=== PATIENT | female | born 1945 | race Caucasian/White ===

== ENCOUNTER 2017-11-07 14:16 | Inpatient (IN) | payer MEDICARE, MEDICAID, SELFPAY ==
[2017-11-07] VITALS (7 sets, daily range): BP systolic 132–189; BP diastolic 66–87; PULSE 74–88; RESP 16–21; TEMP 36.7–37; O2SAT 95–100; BMI 26.6; BMI 25.9
--- NOTE | 2017-11-07 14:35 | CT_ITS ---
STUDY: CT BRAIN WITHOUT CONTRAST REASON FOR EXAM: Female, 72 years old. Confusion. RADIATION DOSAGE (If Supplied By Facility): CTDIvol = ( 60.81 ) mGy, DLP = ( 1181.11 ) mGycm TECHNIQUE: Transaxial CT imaging of the brain was performed without administration of intravenous contrast material. Individualized dose optimization techniques were used for this CT. COMPARISON: None. FINDINGS: Normal soft tissue structures. Normal calvarium. There is mild cerebral atrophy with widening of the extra-axial spaces and ventricular dilatation. There are areas of decreased attenuation within the white matter tracts of the supratentorial brain, consistent with microvascular disease changes. Normal basal ganglia and thalami. Normal brainstem. Normal cerebellum. There is no intracranial hemorrhage. There are no findings of an acute ischemic infarction. Atherosclerotic calcification of the cavernous portions of the internal carotid arteries bilaterally Normal visualized paranasal sinuses. CT/Brain/Head without Contrast IMPRESSION: Chronic involutional changes of the brain. Electronically Signed: Oj Durham MD at 15:31 EDT Tel [phone], Service support ,
--- NOTE | 2017-11-07 14:35 | CT_ITS ---
STUDY: CT ABDOMEN AND PELVIS WITHOUT CONTRAST REASON FOR EXAM: Female, 72 years old. Abdominal pain. RADIATION DOSAGE (If Supplied By Facility): CTDIvol = ( 14.56 ) mGy, DLP = ( 801.33 ) mGycm TECHNIQUE: Transaxial images were obtained from the dome of the diaphragm to the symphysis pubis without oral contrast, and without intravenous contrast. Sagittal and coronal images were reconstructed. Individualized dose optimization techniques were used for this CT. COMPARISON: Comparison is made with prior study dated August 10, 2014. FINDINGS: Stable increased markings at the lung bases suggestive of scarring. This is worse on the right side. The visualized portions of the heart are within normal limits. The previously seen hypodense soft tissue mass in the posterior aspect of the right lobe of the liver has decreased in size. It presently measures 5.9 cm x 4.6 cm. There are surgical clips in the gallbladder fossa consistent with a prior cholecystectomy. Normal spleen. Normal pancreas. Normal bilateral adrenal glands. Punctate calcification in the lower pole calyx of the right kidney. There is a 3.6 cm x 2.9 cm rounded soft tissue mass in the upper pole of the left kidney. Correlation with ultrasound is recommended. There is also evidence of a left parapelvic renal cysts. Normal visualized stomach. Normal small intestine. Normal colon. The appendix is visualized and appears normal. There is diffuse atherosclerotic calcification of the abdominal aorta, without a demonstrated aneurysm. Normal inferior vena cava. Normal retroperitoneum. Normal urinary bladder. There is absence of the uterus consistent with a prior hysterectomy. Normal abdominal wall. There are diffuse degenerative changes of the visualized lumbar spine. Inhomogeneous appearance of the lumbar vertebrae. Metastatic disease should be ruled out. CT/Abdomen/Pelvis without Cont IMPRESSION: Decrease in size of the right hepatic mass. Findings suggestive of a mass in the upper pole of the left kidney. Correlation with ultrasound is recommended. Findings areas of metastatic disease involving the lumbar spine. Electronically Signed: Oj Durham MD at 15:39 EDT Tel [phone], Service support ,
--- NOTE | 2017-11-07 14:36 | EKG12_ITS ---
Test Reason : MENTAL CHANGE Blood Pressure : / mmHG Vent. Rate : 074 BPM Atrial Rate : 074 BPM P-R Int : 150 ms QRS Dur : 102 ms QT Int : 440 ms P-R-T Axes : 052 -06 007 degrees QTc Int : 488 ms Normal sinus rhythm Normal ECG Confirmed by IZZY COHEN, HILDA ([id number]), graphic editor HOUSTON MENDEZ ([id number]) on 11/10/2017 2:01:41 PM Referred By: JUSTYNA Confirmed By:HILDA MAGANA MD
[2017-11-07] MEDS: 0.9% Normal Saline 1,000 ML 1000 ML IV (14:59)
[2017-11-07 15:16] LABS: ALB/GLOB Ratio 1.1 RATIO (0.9-2.4); AST(SGOT) 74 U/L (15-37); Alanine Aminotransfer ALT/SGPT 94 U/L (13-56); Alkaline Phosphatase 187 U/L (45-117); BUN 21 mg/dL (7-18); BUN/Creat Ratio 16.9 RATIO (10-20); Calcium,Total 9.2 mg/dL (8.5-10.1); Chloride 107 mmol/L (98-107); Creatinine, Serum 1.24 mg/dL (0.55-1.02); EST Glomerular Filtration Rate 45 mL/min (>60); Est Glom Filt Rate - Afr Amer 55 mL/min (>60); Estimated Creatinine Clearance 38.96 ml/min; Globulin 3.7 g/dL (2.2-4.2); Glucose 113 mg/dL (74-106); Lipase 49 U/L (73-393); Potassium 3.8 mmol/L (3.5-5.1); Protein, Total 7.7 g/dL (6.4-8.2); Sodium Level 140 mmol/L (136-145)
[2017-11-07 15:17] LABS: Anion Gap 10 (5-15)
[2017-11-07 15:42] LABS: Mucous, Urine 0 SEEN /hpf (<or=2+)
[2017-11-07 15:45] LABS: Color, Urine Yellow (Yellow); Glucose, Dipstick Normal (Normal); Ketone-Dipstick 15 mg/dl (Negative); Leukocyte Esterase-Dipstick 500 /ul (Negative); Nitrite-Dipstick Positive (Negative); Occult Blood-Urine 25 /ul (Negative); Protein-Dipstick 15 mg/dl (Negative); Urine Bilirubin Dipstick Negative (Negative); Urine Clarity Sl. Cloudy (Clear); Urine Urobilinogen Normal (Normal)
--- NOTE | 2017-11-07 15:48 | CASEMGMT ---
Social Work-Emergency Department Received call from Tesha at [facility] ([facility]), . Returned Tesha's call. Tesha inquired whether this patient still in the ED, as APS received concerned call from someone in the community and APS was informed patient was brought to the [facility] ED. Brief chart review done. Reported to APS reason for ED visit, which appears to be mental health related as this time, though at this juncture uncertain if this is mental health or medical issues causing acute mental health symptoms. APS reports the patient lives alone, has reportedly been able to get around on own, and has no family contact that [facility] or [facility] is aware of. There is a woman named Janey at [facility] that patient has listed as emergency contact for landlord at [facility]. APS would like to be notified if patient is admitted or discharged from the hospital, so that APS knows what type of follow up with patient will be needed. Social work agreed to monitor and alert APS when disposition is known. Tesha reports it is okay to even call back tomorrow if needed. Tesha does report that patient is a Waiver client through [facility], Jael Price is the worker. Called Anastasiya Edouard RN CM for the ED to update. Anastasiya will update ED staff. For continuity of care of this patient, in trying to determine what services support are available to patient, this insurance underwriter sales called [facility] at . Left message for Jael to call this insurance underwriter sales back to update hospital as to what waiver services patient is receiving, as well as to inquire whether Jael is aware of any contact information for patient. Plan: Monitor for disposition. -NERY Spicer, REPORT CLERK
[2017-11-07 15:57] LABS: White Blood Cells 50-100 SEEN /hpf (0-5)
[2017-11-07 15:58] LABS: Red Blood Cells-Urine 0 SEEN /hpf (0-5); Renal Epithelial Cells 0-5 SEEN /hpf (0-5); Squamous Epithelial Cells - UA 0-5 SEEN /hpf (5-10)
[2017-11-07 15:59] LABS: Bacteria 1+ /hpf (None Seen)
[2017-11-07 16:04] LABS: Absolute Lymphocyte Count 1.44 X10^3/ul (0.83-4.51); Absolute Neutrophil Count 5.3 X10^3/uL (2.0-7.7); Basophil# 0.02 X10^3/uL; Basophil% 0.3 % (0-1); Eosinophil# 0.09 X10^3/uL; Eosinophils% 1.2 % (0-5); Lymphocyte # 1.44 X10^3/ul (4.0); Lymphocyte % 19.5 % (19-41); Mean Corp Hgb Conc 33.3 g/gl (32-36); Mean Corpuscular Hgb 30.9 pg (27.0-32.0); Mean Corpuscular Volume 92.6 fL (81-99); Mean Platelet Vol. 11.7 fl (6.2-12.0); Monocyte# 0.54 X10^3/uL; Monocyte% 7.3 % (0-10); Neutrophil # 5.28 X10^3/uL (2.7-7.7); Neutrophil % 71.3 % (47-70); Platelet Count 244 K/mm3 (150-450); RBC Distribution Width CV 14.7 % (11.6-14.6); RBC Distribution Width SD 48.1 fl (35.1-43.9); Red Blood Count 4.21 M/mm3 (4.2-5.4); White Blood Count 7.4 K/mm3 (4.4-11.0)
[2017-11-07 16:06] LABS: POSITIVE DIFFERENTIAL NO
[2017-11-07 16:07] LABS: POSITIVE COUNT NO; POSITIVE MORPHOLOGY NO
[2017-11-07 16:14] LABS: Thyroid Stim Hormone (TSH) 1.22 uIU/mL (0.358-3.74)
[2017-11-07 16:17] LABS: Amphetamine Urine VISTA NEGATIVE (<1000 ng/mL); Barbiturate Urine VISTA NEGATIVE (< 200 ng/mL); Benzodiazepine Urine VISTA POSITIVE (< 200 ng/mL); Cocaine Urine VISTA NEGATIVE (< 300 ng/mL); Ecstacy Urine VISTA NEGATIVE (< 500 ng/mL); Methadone Urine VISTA NEGATIVE (< 300 ng/mL); PCP Urine VISTA NEGATIVE (< 25 ng/mL); THC Urine VISTA NEGATIVE (< 50 ng/mL); Vista UDS pH Range 7
[2017-11-07 16:43] LABS: Alcohol, Blood (Medical)-Serum < 3.0 mg/dL
[2017-11-07] MEDS: Ceftriaxone 1 GM/50 mL Premix x1 IV (16:45)
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
[2017-11-07 17:33] LABS: Lactic Acid 2.3 mmol/L (0.4-2.0)
[2017-11-07 20:32] LABS: Reflex Lactate? Y
--- NOTE | 2017-11-07 20:57 | PCM.HP.STD ---
Problem List (1) Knee contusion Status: Acute (2) Thyroid cancer Status: Chronic (3) Anxiety disorder Status: Chronic History of Present Illness Date of Admission: 11/14/17 Chief Complaint: confusion The patient is a 72 year old F seen by her home health critical care cns noted to be confused and hallucinating, the patient was recommended to go to the emergency room for further evaluation. CT scan of her brain showed chronic involutional changes but essentially none acute. Her UA showed pyuria consistent with a urinary tract infection and she was started on IV Rocephin. Patient also complained of right flank pain and underwent CT scan of the abdomen and pelvis and it showed right hepatic mass, mass in the upper pole of the left kidney as well as findings areas of metastatic disease involving the lumbar spine. we are placing her in the hospital for further management. Past Medical History Past Medical History (Chronic Problems): Chronic Problems Thyroid cancer (Chronic) Anxiety disorder (Chronic) Allergies ANTIBIOTIC Adverse Reaction (Uncoded 11/07/17 14:17) Other Home Medications: Ambulatory Orders Medication Instructions Recorded ALPRAZolam [Xanax] 0.25 mg PO TID PRN PRN 07/20/13 Amitriptyline HCl [Elavil] 50 mg PO QHS 07/20/13 Brimonidine Tartrate/Timolol 1 drop EACH EYE BID 07/20/13 [Combigan Eye Drops] Ergocalciferol [Vitamin D] 50,000 unit PO Q7D 07/20/13 Latanoprost 0.005% [Xalatan 1 drop EACH EYE QHS 07/20/13 Opthalmic] Hydrocodone Bitart/Apap 5-325 1 tablet PO Q6H PRN PRN 09/05/17 [Vicodin 5/325] Levothyroxine Sodium 88 mcg PO DAILY 09/05/17 Oxybutynin Chloride [Ditropan Xl] 5 mg PO DAILY 09/05/17 Erythromycin Ophthalmic 1 each EACH EYE DAILY 11/07/17 Smoking Status: Never smoker - *Family History Maternal History Items: No pertinent history, - Review of Systems Comment: All Systems were reviewed with pertinent positives mentioned in the HPI above. VTE Information - Inpt Only VTE Present on Admission: No VTE Mechan Device Prophylaxis: SCD's VTE Pharm Prophylaxis ordered?: No - Physical Exam General: Alert, Oriented x3 HEENT: Atraumatic Lungs: Clear to auscultation Cardiovascular: Regular rate, Normal S1, Normal S2 Abdomen: Bowel Sounds Present, Soft, Non Tender Neurological: Cranial nerves II-XII grossly intact, Motor Exam 5/5 strength throughout Vital Signs Temp Pulse Resp BP Pulse Ox 98.6 F 77 18 132/75 H 99 11/07/17 20:33 11/07/17 20:33 11/07/17 20:33 11/07/17 20:33 11/07/17 20:33 Oxygen Delivery Method Room Air Weight: 72.8 kg Body Mass Index (BMI) 25.9 Assessment/Plan 1. Acute Encephalopathy; this has improved since her arrival to the emergency room, CT scan of the brain is nonacute , I will obtain MRI of the brain. 2. Acute cystitis; we will continue with IV Rocephin and follow urine cultures. 3. right hepatic mass with metastatic disease involving the lumbar spine ; ultrasound of the right upper quadrant, consult oncology Patient said is treated for a type of cancer at the [facility] [place], we will obtain old records. 4. Mass in the upper pole of the left kidney; further imaging with ultrasound and go from there. 5. DVT prophylaxis with Lovenox.
[2017-11-07] MEDS: Amitriptyline 25 MG Tablet 50 MG PO (23:10)
[2017-11-07] MEDS: Latanoprost 0.005% 1 Bottle 1 DRP EACH EYE (23:10)
[2017-11-07] MEDS: 0.9% NaCl Peripheral Flush Adult/Peds IV (23:10)
[2017-11-07] MEDS: Timolol 0.5% 5ML OPTH.BTL 1 DRP EACH EYE (23:11)
[2017-11-07] MEDS: BRIMONIDINE 0.2% 5ML BOTTLE 1 DRP EACH EYE (23:11)
[2017-11-08] VITALS (9 sets, daily range): BP systolic 101–128; BP diastolic 54–73; PULSE 70–89; RESP 16–18; TEMP 36.3–36.9; O2SAT 95–99
[2017-11-08] MEDS: Levothyroxine 88 MCG Tablet PO (05:32)
--- NOTE | 2017-11-08 08:00 | MRI_ITS ---
STUDY: MRI BRAIN WITHOUT CONTRAST REASON FOR EXAM: Female, 72 years old. confusion, hallucinating TECHNIQUE: Standardized multiplanar fat and water weighted pulse sequences were obtained. Sag T1 FLAIR Ax DWI Ax T2 PROPELLER Ax T2 FLAIR Ax T1 FSE Apparent Diffusion Coefficient (mm2/s) Exponential Apparent Diffusion Coefficient Ax T2* GRE Cor T2 FSE COMPARISON: CT brain November 07, 2017 FINDINGS: There is mild to moderate cerebral atrophy with widening of the extra-axial spaces and ventricular dilatation. Normal white matter tracts of the supratentorial brain. Normal bilateral basal ganglia. Normal thalami. There is no extra-axial fluid accumulation. Normal flow voids within the major intracranial circulation suggesting patency by spin echo criteria. Normal sella turcica, pituitary gland, infundibular stalk, optic chiasm and hypothalamus. Normal tectal plate and pineal gland. Normal midbrain, ronal and medulla. Normal cerebellum. Normal basal cisterns. Normal bilateral temporal bones. Normal bilateral internal auditory canals. The lenses of the eyes do not appear apparent. There is fluid seen in association with the optic nerve sheaths bilaterally. Normal calvarium and skull base. Normal visualized soft tissue structures. Normal visualized upper cervical spine. MRI/Brain without Contrast IMPRESSION: Involutional changes of the brain, as described above. No acute intracranial abnormality. Electronically Signed: Stephanie Hardin MD at 11:52 EDT Tel , Service support ,
--- NOTE | 2017-11-08 09:45 | NURSING ---
Pt to MRI via MRI staff
[2017-11-08] MEDS: Timolol 0.5% 5ML OPTH.BTL 1 DRP EACH EYE ×2 (10:53→22:00)
[2017-11-08] MEDS: BRIMONIDINE 0.2% 5ML BOTTLE 1 DRP EACH EYE ×2 (10:53→21:59)
[2017-11-08] MEDS: Erythromycin Base 1 OPTH.TUBE 1 APPLIC EACH EYE (10:54)
[2017-11-08] MEDS: Enoxaparin 40 MG/0.4 ML Syringe SC (10:54)
[2017-11-08] MEDS: Oxybutynin 5 MG Tablet PO (10:54)
[2017-11-08] MEDS: Ceftriaxone 1 GM/50 ML BAG IV (10:57)
--- NOTE | 2017-11-08 10:57 | CASEMGMT ---
Social Work Note Call from Jael Price [[phone]] stating that the pt has been experiencing hallucinations for some time now. Inform that she presented with confusion and a hepatic mass. Jael anticipates that the pt will need placement and suggests guardianship as the pt has not family or friends that would be able to sign her into a facility for placement. Will discuss case with furnace process supervisor. Oncology consulted. SW to continue to follow and assist with discharge planning. Plan: DEONTE Mcgergor, PATTERN PUNCHER, WASTEWATER TREATMENT SUPERVISOR
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
--- NOTE | 2017-11-08 16:06 | CASEMGMT ---
Social Work Note Placed call to Crisis who states that Prema, one of their staff members, is in the ED and to call her. Placed call to Prema who states she is preoccupied in the ED and requests that SW contact [facility] and request to speak with Mayur Baum. Called back to [facility] and updated Mayur Baum to the pt and her situation. States that he will pass along to the staff covering this evening. Anticipate evaluation this evening or tomorrow. Will continue to follow and assist with discharge planning. Zahra Mcgregor, HAND NAILER, FIRST DYER
--- NOTE | 2017-11-08 16:15 | CHAPLAIN ---
two attempts made; first pt is sleeping and second pt has medical staff working with her
--- NOTE | 2017-11-08 16:26 | PCM.PN.HOSP ---
Patient Problems: Active and Suspected Problems Left kidney mass (Acute) Subjective: Patient was seen and examined. Admitted on 11/07/2017 with confusion. Patient is alert oriented ?2 but not to time. She does not r-PA confused. Subspecialties at her baseline. Denied any fever or chills. Had MRI of the brain which was essentially unremarkable. Oncology consulted for right hepatic and renal mass. Vitals/I&O's: Vital Signs Temp Pulse Resp BP Pulse Ox 97.3 F L 73 16 106/54 L 98 11/08/17 14:00 11/08/17 15:12 11/08/17 14:00 11/08/17 14:00 11/08/17 14:00 Oxygen Delivery Method Room Air Weight: 72.8 kg Body Mass Index (BMI) 25.9 Intake and Output for Last 24 Hours 11/06/17 11/07/17 11/08/17 23:59 23:59 23:59 Intake Total 360 / 360 785 / 785 Output Total 200 / 200 150 / 150 Balance 160 / 160 635 / 635 General: Alert, Oriented x3, Cooperative, No apparent distress HEENT: Atraumatic, PERRLA, EOMI, Normocephalic Oral: Moist Mucosa Neck: Supple Lungs: Clear to auscultation, Normal air movement Cardiovascular: Regular rate, Regular Rhythm, Normal S1, Normal S2, No murmurs Abdomen: Bowel Sounds Present, Soft, Non Tender, Non-Distended, No Hepato-splenomegaly Extremities: No edema Skin: No rashes Musculoskeletal: No Tenderness to Palpation of Joints or Extremities Lymphatic: No Cervical, Supraclavicular, or Inguinal Adenopathy Neurological: Cranial nerves II-XII grossly intact, Motor Exam 5/5 strength throughout Psych/Mental Status: Normal Affect, Appropriate Laboratory Results 11/07/17 21:20: Lactic Acid 1.0 Current Medications Hydrocodone Bitart/Acetaminophen ([place] 5mg-325mg) 1 tablet PO Q6H PRN PRN PRN Reason: PAIN Alprazolam (Xanax) 0.25 mg PO TID PRN PRN PRN Reason: ANXIETY Amitriptyline HCl (Elavil) 50 mg PO QHS [facility] Last Admin: 11/07/17 23:10 Dose: 50 mg Brimonidine Tartrate (Brimonidine 0.2% 5ml Bottle) 1 drop EACH EYE BID [facility] Last Admin: 11/08/17 10:53 Dose: 1 drop Dexamethasone Sodium Phosphate (Decadron) 4 mg IV Q12 [facility] Last Admin: 11/08/17 10:54 Dose: 4 mg Enoxaparin Sodium (Lovenox) 40 mg SC DAILY@1000 [facility] Last Admin: 11/08/17 10:54 Dose: 40 mg Ergocalciferol (Vitamin D) 50,000 unit PO Q7D [facility] Erythromycin () 1 applic EACH EYE DAILY [facility] Last Admin: 11/08/17 10:54 Dose: 1 applicatio Ceftriaxone Sodium (Rocephin) 1 gm in 50 mls @ 100 mls/hr IV Q24 [facility] Last Admin: 11/08/17 10:57 Dose: 100 mls/hr Latanoprost (Xalatan Opthalmic) 1 drop EACH EYE QHS [facility] Last Admin: 11/07/17 23:10 Dose: 1 drop Levothyroxine Sodium (Synthroid) 88 mcg PO DAILY@0600 [facility] Last Admin: 11/08/17 05:32 Dose: 88 mcg Magnesium Hydroxide (Milk Of Magnesia) 30 ml PO DAILY PRN PRN PRN Reason: Constipation Nutritional Formula (Lactose Free) (Ensure Enlive) 120 ml PO 4X/DAY [facility] Last Admin: 11/08/17 15:03 Dose: 120 ml Oxybutynin Chloride (Ditropan) 5 mg PO DAILY [facility] Last Admin: 11/08/17 10:54 Dose: 5 mg Sodium Chloride () 5 - 30 ml IV UD PRN PRN Reason: SALINE FLUSH Last Admin: 11/07/17 23:10 Dose: 10 ml Timolol Maleate (Timoptic) 1 drop EACH EYE BID [facility] Last Admin: 11/08/17 10:53 Dose: 1 drop Medical Necessity - Tobacco Use Smoking Status: Never smoker Assessment/Plan Active and Suspected Problems Left kidney mass (Acute) 72-year-old female with past medical history of underlining mental disorder suspected to be schizoaffective disorder, lives in the community comes in after her home health aide noted her to be confused and hallucinating. 1. Acute metabolic encephalopathy in the patient with baseline unspecified mental disorder, patient appears to be at baseline Now, likely suspected to be due to UTI. CT scan of the head was negative for any acute intracranial process. MRI showed no acute process. Patient is on IV ceftriaxone, will continue. 2. Possible UTI, urine cultures growing gram-positive cocci, unclear if that is contaminant, patient is currently on IV ceftriaxone, no fever or chills or leukocytosis We will continue on IV ceftriaxone until further speciation of the urine cultures are done. 3. Acute renal insufficiency in the patient with previous creatinine of 1.1 in 2013, repeat labs in a.m. 4. Hepatic and renal mass, unclear etiology, although oncology consulted, blood for alpha-fetoprotein and hepatitis profile requested, will consult urology for recommendations on renal mass 5. Cognitive dysfunction likely secondary to unspecified mental disorder suspected to be schizoaffective disorder, patient is intermittently hallucinating, will consider a crisis consult, continue on home medication 6. Hypothyroidism, on levothyroxine, will check on TSH as that could have an impact on patient's cognitive dysfunction. 7. DVT Prophylaxis with Lovenox subcu Code Visit Inpatient E&M: 87357 Subs Hosp L2
--- NOTE | 2017-11-08 16:28 | CASEMGMT ---
Social Work Note Placed call to Gisel Stubbs with APS. Provided with update and contact information. Placed call to Cris Price and left vm. Provided with update and inquired about potential placement under and intermediate level of care if the pt were in agreement and if she were to go home if aide services could be increased. SW to continue to follow and assist with discharge planning. Plan: Crisis to evaluate. Zahra Mcgregor, MEDICAL PRACTICE MANAGER, TEAR DOWN WORKER
--- NOTE | 2017-11-08 16:30 | ONC.CONS.INP ---
Consult Referring Physician: Dr. Vishnu Ryder. Consult Results: Liver mass and Left Kidney mass. Subjective Date of Service:: 11/08/17 Chief Complaint: Asked to see pt with H/O liver mass and Left kidney mass. History of Present Illness: 72y.o.woman, poor historian, was admitted with confusion, found to have R liver mass and left kidney mass. She cannot give a good history. Past Medical History: Chronic Problems Liver mass (Chronic) Thyroid cancer (Chronic) Anxiety disorder (Chronic) Maternal Family History: No pertinent history, - - Social History Smoking Status: Never smoker Allergies/Adverse Reactions: Allergy/AdvReac Type Severity Reaction Status Date / Time ANTIBIOTIC AdvReac Other Uncoded 11/07/17 14:17 Home Medications Medication Instructions Recorded ALPRAZolam [Xanax] 0.25 mg PO TID PRN PRN 07/20/13 Amitriptyline HCl [Elavil] 50 mg PO QHS 07/20/13 Brimonidine Tartrate/Timolol 1 drop EACH EYE BID 07/20/13 [Combigan Eye Drops] Ergocalciferol [Vitamin D] 50,000 unit PO Q7D 07/20/13 Latanoprost 0.005% [Xalatan 1 drop EACH EYE QHS 07/20/13 Opthalmic] Hydrocodone Bitart/Apap 5-325 1 tablet PO Q6H PRN PRN 09/05/17 [Vicodin 5/325] Levothyroxine Sodium 88 mcg PO DAILY 09/05/17 Oxybutynin Chloride [Ditropan Xl] 5 mg PO DAILY 09/05/17 Erythromycin Ophthalmic 1 each EACH EYE DAILY 11/07/17 Review of Systems Constitutional:: Denies: Fever, Sweats Cardiovascular:: Reports: Chest pain. Denies: Peripheral edema Respiratory: Denies: Cough, Hemoptysis, Pleuritic Pain, Shortness of Breath Gastrointestinal:: Denies: Abdominal pain, Nausea, Vomiting, Diarrhea, Constipation Genitourinary: Denies: Dysuria, Hematuria, 15, Flank pain Musculoskeletal:: Denies: Back pain, Myalgia, Arthralgia Skin: Denies: Rash, Skin Changes, Wounds Neurological:: Denies: Headache, Dizziness, Visual changes, Tinnitus, Hearing loss Vital Signs Height 5 ft 6 in Weight: 72.8 kg Weight in Pounds 160.5 lbs Pulse Ox 98 Temperature 97.3 F Pulse Rate 73 Respiratory Rate 16 Blood Pressure [BP] 132/75 Blood Pressure 106/54 Blood Pressure Position [BP] Semi-Fowlers Blood Pressure Position Semi-Fowlers - Physical Exam General: Alert, Oriented x3, Cooperative HEENT: Atraumatic, PERRLA, EOMI, Normocephalic Oropharynx:: Dry mucosa Neck:: Supple, Trachea midline. Negative for: JVD, bilateral Cardiac:: Regular rate, Regular rhythm, Normal S1, Normal S2. Negative for: Murmur Lungs: Clear to auscultation, Excusion symmetrical. Negative for: Rhonchi, Wheezes Abdomen:: Bowel sounds x 4, Soft, Non-tender, Non-distended. Negative for: Hepatosplenomegaly Extremities:: Negative for: Cyanosis, Edema Skin:: Negative for: Lesions, Rash, Petechiae, Ecchymosis Lymphatics:: Negative for: Cervical lymphadenopathy, Supraclavicular lymphadenopathy, Axillary lymphadenopathy Breast:: - - no masses R & L. Laboratory Data: Laboratory Tests 11/07/17 Range/Units 21:20 Lactic Acid 1.0 (0.4-2.0) mmol/L Diagnostic Data: Diagnostic Data Abdomen/Pelvis CT 11/07/17 14:35 IMPRESSION: Decrease in size of the right hepatic mass. Findings suggestive of a mass in the upper pole of the left kidney. Correlation with ultrasound is recommended. Findings areas of metastatic disease involving the lumbar spine. Electronically Signed: Oj Durham MD at 15:39 EDT Tel [phone], Service support , Brain CT 11/07/17 14:35 IMPRESSION: Chronic involutional changes of the brain. Electronically Signed: Oj Durham MD at 15:31 EDT Tel [phone], Service support , Brain MRI 11/08/17 08:00 IMPRESSION: Involutional changes of the brain, as described above. No acute intracranial abnormality. Electronically Signed: Stephanie Hardin MD at 11:52 EDT Tel , Service support , Assessment and Plan Right liver mass which has been present since 2013, now smaller. It is not clear if she has had any treatment. Left kidney mass. Pt is a poor historian so not sure where she had treatment but it may be [facility]. Suggestion is to obtain more information from PCP. Obtain Urology consult. If she is discharged, she can follow up at [facility]. Thanks. Medications: Prescriptions This Visit Medication Instructions Recorded Erythromycin Ophthalmic 1 each EACH EYE DAILY 11/07/17 Medications Added to Medication List This Visit Category Date Time Status Ceftriaxone [Rocephin] Med 11/08/17 10:00 Active 1 gm in 50 ml IV Q24 Enoxaparin [Lovenox] Med 11/08/17 10:00 Active 40 mg SC DAILY@1000 Ergocalciferol [Vitamin D] Med 11/13/17 10:00 Active 50,000 unit PO Q7D Erythromycin Ophthalmic Med 11/08/17 10:00 Active 1 applic EACH EYE DAILY Oxybutynin [Ditropan] Med 11/08/17 10:00 Active 5 mg PO DAILY Primary Care Provider: Dann Muniz Referring Provider: - Problem List (1) Liver mass Status: Chronic (2) Left kidney mass Status: Acute Code Visit Office Visits / Consults: [id number] IP Consult L4
--- NOTE | 2017-11-08 16:41 | CON.PCM_ITS ---
Consult Referring Physician: Dr. Vishnu Ryder. Consult Results: Liver mass and Left Kidney mass. Subjective Date of Service:: 11/08/17 Chief Complaint: Asked to see pt with H/O liver mass and Left kidney mass. History of Present Illness: 72y.o.woman, poor historian, was admitted with confusion, found to have R liver mass and left kidney mass. She cannot give a good history. Past Medical History: Chronic Problems Liver mass (Chronic) Thyroid cancer (Chronic) Anxiety disorder (Chronic) Maternal Family History: No pertinent history, - - Social History Smoking Status: Never smoker Allergies/Adverse Reactions: Allergy/AdvReac Type Severity Reaction Status Date / Time ANTIBIOTIC AdvReac Other Uncoded 11/07/17 14:17 Home Medications Medication Instructions Recorded ALPRAZolam [Xanax] 0.25 mg PO TID PRN PRN 07/20/13 Amitriptyline HCl [Elavil] 50 mg PO QHS 07/20/13 Brimonidine Tartrate/Timolol 1 drop EACH EYE BID 07/20/13 [Combigan Eye Drops] Ergocalciferol [Vitamin D] 50,000 unit PO Q7D 07/20/13 Latanoprost 0.005% [Xalatan 1 drop EACH EYE QHS 07/20/13 Opthalmic] Hydrocodone Bitart/Apap 5-325 1 tablet PO Q6H PRN PRN 09/05/17 [Vicodin 5/325] Levothyroxine Sodium 88 mcg PO DAILY 09/05/17 Oxybutynin Chloride [Ditropan Xl] 5 mg PO DAILY 09/05/17 Erythromycin Ophthalmic 1 each EACH EYE DAILY 11/07/17 Review of Systems Constitutional:: Denies: Fever, Sweats Cardiovascular:: Reports: Chest pain. Denies: Peripheral edema Respiratory: Denies: Cough, Hemoptysis, Pleuritic Pain, Shortness of Breath Gastrointestinal:: Denies: Abdominal pain, Nausea, Vomiting, Diarrhea, Constipation Genitourinary: Denies: Dysuria, Hematuria, 15, Flank pain Musculoskeletal:: Denies: Back pain, Myalgia, Arthralgia Skin: Denies: Rash, Skin Changes, Wounds Neurological:: Denies: Headache, Dizziness, Visual changes, Tinnitus, Hearing loss Vital Signs Height 5 ft 6 in Weight: 72.8 kg Weight in Pounds 160.5 lbs Pulse Ox 98 Temperature 97.3 F Pulse Rate 73 Respiratory Rate 16 Blood Pressure [BP] 132/75 Blood Pressure 106/54 Blood Pressure Position [BP] Semi-Fowlers Blood Pressure Position Semi-Fowlers - Physical Exam General: Alert, Oriented x3, Cooperative HEENT: Atraumatic, PERRLA, EOMI, Normocephalic Oropharynx:: Dry mucosa Neck:: Supple, Trachea midline. Negative for: JVD, bilateral Cardiac:: Regular rate, Regular rhythm, Normal S1, Normal S2. Negative for: Murmur Lungs: Clear to auscultation, Excusion symmetrical. Negative for: Rhonchi, Wheezes Abdomen:: Bowel sounds x 4, Soft, Non-tender, Non-distended. Negative for: Hepatosplenomegaly Extremities:: Negative for: Cyanosis, Edema Skin:: Negative for: Lesions, Rash, Petechiae, Ecchymosis Lymphatics:: Negative for: Cervical lymphadenopathy, Supraclavicular lymphadenopathy, Axillary lymphadenopathy Breast:: - - no masses R & L. Laboratory Data: Laboratory Tests 3 11/07/17 Range/Units 21:20 Lactic Acid 1.0 (0.4-2.0) mmol/L Diagnostic Data: Diagnostic Data Abdomen/Pelvis CT 11/07/17 14:35 IMPRESSION: Decrease in size of the right hepatic mass. Findings suggestive of a mass in the upper pole of the left kidney. Correlation with ultrasound is recommended. Findings areas of metastatic disease involving the lumbar spine. Electronically Signed: Oj Durham MD at 15:39 EDT Tel [phone], Service support , Brain CT 11/07/17 14:35 IMPRESSION: Chronic involutional changes of the brain. Electronically Signed: Oj Durham MD at 15:31 EDT Tel [phone], Service support , Brain MRI 11/08/17 08:00 IMPRESSION: Involutional changes of the brain, as described above. No acute intracranial abnormality. Electronically Signed: Stephanie Hardin MD at 11:52 EDT Tel , Service support , Assessment and Plan Right liver mass which has been present since 2013, now smaller. It is not clear if she has had any treatment. Left kidney mass. Pt is a poor historian so not sure where she had treatment but it may be [facility]. Suggestion is to obtain more information from PCP. Obtain Urology consult. If she is discharged, she can follow up at [facility]. Thanks. Medications: Prescriptions This Visit Medication Instructions Recorded Erythromycin Ophthalmic 1 each EACH EYE DAILY 11/07/17 Medications Added to Medication List This Visit Category Date Time Status Ceftriaxone [Rocephin] Med 11/08/17 10:00 Active 1 gm in 50 ml IV Q24 Enoxaparin [Lovenox] Med 11/08/17 10:00 Active 40 mg SC DAILY@1000 Ergocalciferol [Vitamin D] Med 11/13/17 10:00 Active 50,000 unit PO Q7D Erythromycin Ophthalmic Med 11/08/17 10:00 Active 1 applic EACH EYE DAILY Oxybutynin [Ditropan] Med 11/08/17 10:00 Active 5 mg PO DAILY Primary Care Provider: Dann Muniz Referring Provider: - Problem List (1) Liver mass Status: Chronic (2) Left kidney mass Status: Acute Code Visit Office Visits / Consults: [id number] IP Consult L4
--- NOTE | 2017-11-08 17:27 | CT_ITS ---
STUDY: CT ABDOMEN WITH CONTRAST REASON FOR EXAM: Female, 72 years old. Left renal mass RADIATION DOSAGE (If Supplied By Facility): CTDIvol = ( 15.26 ) mGy, DLP = ( 1266.39 ) mGycm TECHNIQUE: Transaxial images were obtained post I.V. administration of 100 ml of Isovue 300 contrast, and oral contrast. Sagittal and coronal images were reconstructed. Individualized dose optimization techniques were used for this CT. COMPARISON: November 07, 2017. FINDINGS: Lung bases demonstrate bilateral atelectasis versus scar formation, right greater than left. The visualized portions of the heart are within normal limits. There is a 7.4 x 5.0 cm mass within the posterior right hepatic dome, unchanged from prior imaging. There is an additional hypoattenuated lesion within the posterior aspect of the right posterior hepatic segment measuring 2.2 cm, separate from the first mass described.. Gallbladder is surgically absent. There is minimal central intrahepatic biliary duct dilatation, consistent with postcholecystectomy change. Normal spleen. Normal pancreas. Right adrenal gland is not well-defined and suggests contiguity with the right posterior hepatic segment mass described above. Left adrenal gland is normal. There are multiple hypoattenuated lesions within both kidneys with heterogeneous enhancement versus calcification noted within the left medial upper pole mass. Additional lesions within the left lower pole do not meet strict CT criteria for simple cysts. There is a 4 mm calculus in the right lower renal pelvis. Normal visualized stomach. Normal small intestine. Normal colon. Appendix is visualized and is normal.. Mild atherosclerotic calcification of the abdominal aorta. Normal inferior vena cava. Normal retroperitoneum. There is a right spigelian hernia containing segment of nonthickened, nondistended small bowel and colon. Normal osseous structures. CT/Abdomen WITH IV Contrast IMPRESSION: 1. Right posterior hepatic segment mass which may be contiguous with questionable suggested confluence with the right adrenal gland. 2. Additional hypoattenuated ill-defined hypoattenuated lesion in the right posterior hepatic segment measuring 2.2 cm, new from prior imaging and concerning for progressive metastatic disease. 3. Multiple hypoattenuated lesions throughout both kidneys which do not meet strict CT criteria for simple cysts, with a dominant partially enhancing versus partially calcified lesion seen in the left lateral upper pole. Dedicated MR imaging is recommended for further characterization. 4. Right-sided spigelian hernia containing nonthickened, nondistended loops of small bowel and colon. Electronically Signed: Tu Salgado MD at 2:01 EDT Tel , Service support ,
--- NOTE | 2017-11-08 17:27 | CON.PCM_ITS ---
Problem List (1) Left kidney mass Status: Acute Reason for Consult Date of Consultation: 11/08/17 Reason for Consultation: Question of a left renal mass History of Present Illness: The patient is a 72 year old pleasant female who is in the hospital and incidentally was found to have a possible mass in the left kidney she had a CT scan without any contrast that shows some hyperdense cyst multiple in the left kidney but there is a suspicious area on the upper pole the left kidney I think I would want to get a CT scan with IV contrast to further evaluate this. Also will get an ultrasound to take a look. If this turns out to be a mass is fairly small probably would recommend observation start off. She otherwise has no clinical symptoms. Past Medical History Past Medical History (Chronic Problems): Chronic Problems Liver mass (Chronic) Thyroid cancer (Chronic) Anxiety disorder (Chronic) Allergies ANTIBIOTIC Adverse Reaction (Uncoded 11/07/17 14:17) Other Home Medications: Ambulatory Orders Medication Instructions Recorded ALPRAZolam [Xanax] 0.25 mg PO TID PRN PRN 07/20/13 Amitriptyline HCl [Elavil] 50 mg PO QHS 07/20/13 Brimonidine Tartrate/Timolol 1 drop EACH EYE BID 07/20/13 [Combigan Eye Drops] Ergocalciferol [Vitamin D] 50,000 unit PO Q7D 07/20/13 Latanoprost 0.005% [Xalatan 1 drop EACH EYE QHS 07/20/13 Opthalmic] Hydrocodone Bitart/Apap 5-325 1 tablet PO Q6H PRN PRN 09/05/17 [Vicodin 5/325] Levothyroxine Sodium 88 mcg PO DAILY 09/05/17 Oxybutynin Chloride [Ditropan Xl] 5 mg PO DAILY 09/05/17 Erythromycin Ophthalmic 1 each EACH EYE DAILY 11/07/17 Psychiatric History: No pertinent psych hx 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 Lives: Spouse/ Significant Other Smoking Status: Never smoker Alcohol: None Drugs: None - *Family History Maternal History Items: No pertinent history, - Review of Systems Constitutional: Denies: Chills, Fever, Weight Change HEENT: Denies: Head Aches, Sinus Congestion, Sinus Drainage Cardiovascular: Denies: Chest Pain, Palpitations Respiratory: Denies: Cough, Shortness of breath at rest, Sputum production Gastrointestinal: Denies: Abdominal Pain, Nausea, Vomiting Genitourinary: Denies: Dysuria Musculoskeletal: Denies: Joint Pain, Joint Tenderness Skin: Denies: Rash, Wounds Neurological: Denies: Numbness, Tingling, Focal weakness Psychiatric: Denies: Anxiety, Depression, Homicidal Ideations, Suicidal Ideations Hematologic/ Lymphatic: Denies: Easy Bruising, Easy Bleeding Physical Exam - Physical Exam Vital Signs Temp 97.3 F L 11/08/17 14:00 Pulse 73 11/08/17 15:12 Resp 16 11/08/17 14:00 BP 106/54 L 11/08/17 14:00 Pulse Ox 98 11/08/17 14:00 General: Alert, Oriented x3 HEENT: Atraumatic Oral: Moist Mucosa Neck: Supple Lungs: Normal air movement Cardiovascular: Regular rate Abdomen: Bowel Sounds Present, Soft Assessment/Plan Active and Suspected Problems Left kidney mass (Acute) 72-year-old female admitted to the hospital she has a possible mass in her left kidney. She has also hyperdense cyst in her left kidney. We recommend we get a CT scan with IV contrast to further evaluate the kidney also will get an ultrasound of the kidney for further evaluation. I think after discharge from the hospital she can follow-up in my office for further follow-up on the CAT scans and ultrasounds obtained call me with questions.
[2017-11-08] MEDS: Latanoprost 0.005% 1 Bottle 1 DRP EACH EYE (21:59)
[2017-11-08] MEDS: Amitriptyline 25 MG Tablet 50 MG PO (22:00)
[2017-11-08] MEDS: 0.9% NaCl Peripheral Flush Adult/Peds IV (22:07)
[2017-11-09] VITALS (10 sets, daily range): BP systolic 115–118; BP diastolic 56–77; PULSE 55–83; RESP 16–19; TEMP 36.7–37.3; O2SAT 96–99
[2017-11-09] MEDS: ALPRAZolam 0.25 MG Tablet PO ×2 (01:24→22:22)
[2017-11-09 05:40] LABS: Absolute Lymphocyte Count 1.14 X10^3/ul (0.83-4.51); Absolute Neutrophil Count 10.8 X10^3/uL (2.0-7.7); Basophil# 0.01 X10^3/uL; Basophil% 0.1 % (0-1); Hematocrit 40.7 % (37-47); Hemoglobin 13.3 g/dl (12.0-15.0); Lymphocyte # 1.14 X10^3/ul (4.0); Mean Corp Hgb Conc 32.7 g/gl (32-36); Mean Corpuscular Hgb 31.1 pg (27.0-32.0); Mean Corpuscular Volume 95.3 fL (81-99); Mean Platelet Vol. 11.6 fl (6.2-12.0); Monocyte# 0.55 X10^3/uL; Monocyte% 4.4 % (0-10); Neutrophil # 10.84 X10^3/uL (2.7-7.7); Platelet Count 235 K/mm3 (150-450); RBC Distribution Width CV 15.3 % (11.6-14.6); RBC Distribution Width SD 51.5 fl (35.1-43.9); Red Blood Count 4.27 M/mm3 (4.2-5.4); White Blood Count 12.6 K/mm3 (4.4-11.0)
[2017-11-09 05:45] LABS: POSITIVE COUNT NO; POSITIVE DIFFERENTIAL NO; POSITIVE MORPHOLOGY NO
[2017-11-09] MEDS: Levothyroxine 88 MCG Tablet PO (05:47)
[2017-11-09 06:25] LABS: Anion Gap 8 (5-15); BUN 24 mg/dL (7-18); BUN/Creat Ratio 21.4 RATIO (10-20); Calcium,Total 8.5 mg/dL (8.5-10.1); Chloride 110 mmol/L (98-107); Creatinine, Serum 1.12 mg/dL (0.55-1.02); EST Glomerular Filtration Rate 51 mL/min (>60); Est Glom Filt Rate - Afr Amer 62 mL/min (>60); Estimated Creatinine Clearance 43.13 ml/min; Glucose 207 mg/dL (74-106); Potassium 4.1 mmol/L (3.5-5.1); Sodium Level 140 mmol/L (136-145); Thyroid Stim Hormone (TSH) 0.26 uIU/mL (0.358-3.74)
--- NOTE | 2017-11-09 07:47 | PCM.CONS.U ---
Problem List (1) Left kidney mass Status: Acute Reason for Consult Date of Consultation: 11/09/17 Reason for Consultation: Follow-up on CAT scan History of Present Illness: The patient is a 72 year old female who underwent a CT scan and demonstrates a mass in the liver which will need to be further evaluated. She has multiple non-simple cystic lesions in the left kidney at this point would recommend observation probably would want to get an outpatient MRI. No surgical intervention is planned on the cystic lesions in the left kidney probably would just continue with observation unless a significant change in growth or size. Past Medical History Past Medical History (Chronic Problems): Chronic Problems Liver mass (Chronic) Thyroid cancer (Chronic) Anxiety disorder (Chronic) Allergies ANTIBIOTIC Adverse Reaction (Uncoded 11/07/17 14:17) Other Home Medications: Ambulatory Orders Medication Instructions Recorded ALPRAZolam [Xanax] 0.25 mg PO TID PRN PRN 07/20/13 Amitriptyline HCl [Elavil] 50 mg PO QHS 07/20/13 Brimonidine Tartrate/Timolol 1 drop EACH EYE BID 07/20/13 [Combigan Eye Drops] Ergocalciferol [Vitamin D] 50,000 unit PO Q7D 07/20/13 Latanoprost 0.005% [Xalatan 1 drop EACH EYE QHS 07/20/13 Opthalmic] Hydrocodone Bitart/Apap 5-325 1 tablet PO Q6H PRN PRN 09/05/17 [Vicodin 5/325] Levothyroxine Sodium 88 mcg PO DAILY 09/05/17 Oxybutynin Chloride [Ditropan Xl] 5 mg PO DAILY 09/05/17 Erythromycin Ophthalmic 1 each EACH EYE DAILY 11/07/17 Psychiatric History: No pertinent psych hx 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 Lives: Spouse/ Significant Other Smoking Status: Never smoker Alcohol: None Drugs: None - *Family History Maternal History Items: No pertinent history, - Physical Exam - Physical Exam Vital Signs Temp 98.2 F 11/09/17 02:07 Pulse 82 11/09/17 03:59 Resp 19 H 11/09/17 02:07 BP 115/70 11/09/17 02:07 Pulse Ox 96 11/09/17 02:07 Intake & Output 11/07/17 11/08/17 11/09/17 23:59 23:59 23:59 Intake Total 500 / 1285 240 / 240 Balance 500 / 1135 240 / 240 Intake: Oral 500 / 1220 240 / 240 Other: Number of Voids 2 2 Laboratory Tests Past 24 Hrs 11/09/17 11/09/17 11/09/17 05:12 05:12 05:12 WBC 12.6 H RBC 4.27 Hgb 13.3 Hct 40.7 MCV 95.3 MCH 31.1 MCHC 32.7 RDW 15.3 H RDW Differential 51.5 H Plt Count 235 MPV 11.6 Immature Gran % (Auto) 0.500 Neut % (Auto) 86.0 H Lymph % (Auto) 9.0 L [place] % (Auto) 4.4 Eos % (Auto) 0.0 Baso % (Auto) 0.1 Absolute Neuts (auto) 10.8 H Absolute Lymphs (auto) 1.14 Total Counted Not Reportable Sodium Potassium Chloride Carbon Dioxide Anion Gap BUN Creatinine Estim Creat Clear Calc Est GFR (MDRD) Af Amer Est GFR (MDRD) Non-Af BUN/Creatinine Ratio Glucose Calcium [id number] Pending TSH Hepatitis A IgM Ab Pending Hep Bs Antigen Pending Hep B Core IgM Ab Pending Hepatitis C Ab (EIA) Pending 11/09/17 05:12 WBC RBC Hgb Hct MCV MCH MCHC RDW RDW Differential Plt Count MPV Immature Gran % (Auto) Neut % (Auto) Lymph % (Auto) [place] % (Auto) Eos % (Auto) Baso % (Auto) Absolute Neuts (auto) Absolute Lymphs (auto) Total Counted Sodium 140 Potassium 4.1 Chloride 110 H Carbon Dioxide 22.0 Anion Gap 8 BUN 24 H Creatinine 1.12 H Estim Creat Clear Calc 43.13 Est GFR (MDRD) Af Amer 62 Est GFR (MDRD) Non-Af 51 L BUN/Creatinine Ratio 21.4 H Glucose 207 H Calcium 8.5 [id number] TSH 0.26 L Hepatitis A IgM Ab Hep Bs Antigen Hep B Core IgM Ab Hepatitis C Ab (EIA) Assessment/Plan Active and Suspected Problems Left kidney mass (Acute) 72-year-old female with a mass in the liver probably needs further evaluation cystic lesions complicated cysts on both kidneys recommend observation and probably would recommend observation of the cystic lesions in both kidneys unless is a significant change in size or growth rate., can follow-up with urology as an outpatient probably will further evaluate these masses with an MRI recommend observation of the cystic mass lesions in her kidneys unless is significant change in size or growth rate over time.
[2017-11-09] MEDS: BRIMONIDINE 0.2% 5ML BOTTLE 1 DRP EACH EYE ×2 (08:35→22:13)
[2017-11-09] MEDS: Erythromycin Base 1 OPTH.TUBE 1 APPLIC EACH EYE (08:36)
[2017-11-09] MEDS: Timolol 0.5% 5ML OPTH.BTL 1 DRP EACH EYE ×2 (08:36→22:13)
[2017-11-09] MEDS: 0.9% NaCl Peripheral Flush Adult/Peds IV (08:37)
--- NOTE | 2017-11-09 08:47 | CASEMGMT ---
Social Work Note Reviewed pt's chart as crisis evaluated yesterday, 11/08. 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 Placed call to [facility] and spoke with Marylou Kearney. She requests labs and scans be faxed to her at [phone]. Requested documents faxed, and Marylou to work on psychiatric hospitalization placement. Placed call to Cris Price pt's CM. Provided with update, and will continue to update as information is known. Plan: Psych hospitalization pending acceptance. [facility] to complete. Zahra Mcgregor, TV PRODUCTION ASSISTANT, [employer]
[2017-11-09] MEDS: Enoxaparin 40 MG/0.4 ML Syringe SC (08:48)
[2017-11-09] MEDS: HYDROcodone Bitartrate/Apap 5/325 Tablet PO ×2 (08:55→22:22)
[2017-11-09] MEDS: Ceftriaxone 1 GM/50 ML BAG IV (08:58)
[2017-11-09] MEDS: Oxybutynin 5 MG Tablet PO (11:04)
--- NOTE | 2017-11-09 12:46 | ONC.PN.INPT ---
- Problem List (1) Liver mass Status: Chronic (2) Left kidney mass Status: Acute Subjective Date of Service:: 11/09/17 F/u for Liver mass. 72y.o.woman, poor historian, was admitted with confusion, found to have R liver mass and left kidney mass. She cannot give a good history. 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 Past Medical History: Chronic Problems Liver mass (Chronic) Thyroid cancer (Chronic) Anxiety disorder (Chronic) Maternal Family History: No pertinent history, - - Social History Lives: Spouse/ Significant Other Smoking Status: Never smoker Alcohol: None Drugs: None Vital Signs Pulse Ox 99 Temperature 99.2 F Pulse Rate 69 Respiratory Rate 18 Blood Pressure 118/77 Blood Pressure Position Sitting - Physical Exam General: Alert, Oriented x3, No apparent distress Laboratory Data: Laboratory Tests 11/09/17 11/09/17 Range/Units 05:12 05:12 WBC 12.6 H (4.4-11.0) K/mm3 RBC 4.27 (4.2-5.4) M/mm3 Hgb 13.3 (12.0-15.0) g/dl Hct 40.7 (37-47) % MCV 95.3 (81-99) fL MCH 31.1 (27.0-32.0) pg MCHC 32.7 (32-36) g/gl RDW 15.3 H (11.6-14.6) % RDW Differential 51.5 H (35.1-43.9) fl Plt Count 235 (150-450) K/mm3 MPV 11.6 (6.2-12.0) fl Immature Gran % (Auto) 0.500 (0.0-0.9) % Neut % (Auto) 86.0 H (47-70) % Lymph % (Auto) 9.0 L (19-41) % [place] % (Auto) 4.4 (0-10) % Eos % (Auto) 0.0 (0-5) % Baso % (Auto) 0.1 (0-1) % Absolute Neuts (auto) 10.8 H (2.0-7.7) X10^3/uL Absolute Lymphs (auto) 1.14 (0.83-4.51) X10^3/ul Total Counted Not Reportable Sodium 140 (136-145) mmol/L Potassium 4.1 (3.5-5.1) mmol/L Chloride 110 H (98-107) mmol/L Carbon Dioxide 22.0 (21.0-32.0) mmol/L Anion Gap 8 (5-15) BUN 24 H (7-18) mg/dL Creatinine 1.12 H (0.55-1.02) mg/dL Estim Creat Clear Calc 43.13 ml/min Est GFR (MDRD) Af Amer 62 (>60) mL/min Est GFR (MDRD) Non-Af 51 L (>60) mL/min BUN/Creatinine Ratio 21.4 H (10-20) RATIO Glucose 207 H (74-106) mg/dL Calcium 8.5 (8.5-10.1) mg/dL TSH 0.26 L (0.358-3.74) uIU/mL Diagnostic Data: Diagnostic Data Abdomen/Pelvis CT 11/07/17 14:35 IMPRESSION: Decrease in size of the right hepatic mass. Findings suggestive of a mass in the upper pole of the left kidney. Correlation with ultrasound is recommended. Findings areas of metastatic disease involving the lumbar spine. Electronically Signed: Oj Durham MD at 15:39 EDT Tel [phone], Service support , Brain CT 11/07/17 14:35 IMPRESSION: Chronic involutional changes of the brain. Electronically Signed: Oj Durham MD at 15:31 EDT Tel [phone], Service support , Brain MRI 11/08/17 08:00 IMPRESSION: Involutional changes of the brain, as described above. No acute intracranial abnormality. Electronically Signed: Stephanie Hardin MD at 11:52 EDT Tel , Service support , Abdomen CT 11/08/17 17:27 IMPRESSION: 1. Right posterior hepatic segment mass which may be contiguous with questionable suggested confluence with the right adrenal gland. 2. Additional hypoattenuated ill-defined hypoattenuated lesion in the right posterior hepatic segment measuring 2.2 cm, new from prior imaging and concerning for progressive metastatic disease. 3. Multiple hypoattenuated lesions throughout both kidneys which do not meet strict CT criteria for simple cysts, with a dominant partially enhancing versus partially calcified lesion seen in the left lateral upper pole. Dedicated MR imaging is recommended for further characterization. 4. Right-sided spigelian hernia containing nonthickened, nondistended loops of small bowel and colon. Electronically Signed: Tu Salgado MD at 2:01 EDT Tel , Service support , Assessment and Plan Right liver Hemangioma which has been present since 2000, now smaller. No need for further evaluation. Left kidney mass. Pt is a poor historian so not sure where she had treatment but it [facility] be [facility]. Suggestion is to do observation. No need for follow up in the clinic. Thanks. Medications: Prescriptions This Visit Medication Instructions Recorded Erythromycin Ophthalmic 1 each EACH EYE DAILY 11/07/17 Primary Care Provider: Dann Muniz Referring Provider: Code Visit Inpatient E&M: [id number] [facility] Hosp L1
--- NOTE | 2017-11-09 12:53 | PN_ITS ---
- Problem List (1) Liver mass Status: Chronic (2) Left kidney mass Status: Acute Subjective Date of Service:: 11/09/17 F/u for Liver mass. 72y.o.woman, poor historian, was admitted with confusion, found to have R liver mass and left kidney mass. She cannot give a good history. 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 Past Medical History: Chronic Problems Liver mass (Chronic) Thyroid cancer (Chronic) Anxiety disorder (Chronic) Maternal Family History: No pertinent history, - - Social History Lives: Spouse/ Significant Other Smoking Status: Never smoker Alcohol: None Drugs: None Vital Signs Pulse Ox 99 Temperature 99.2 F Pulse Rate 69 Respiratory Rate 18 Blood Pressure 118/77 Blood Pressure Position Sitting - Physical Exam General: Alert, Oriented x3, No apparent distress Laboratory Data: Laboratory Tests 3 11/09/17 11/09/17 Range/Units 05:12 05:12 WBC 12.6 H (4.4-11.0) K/mm3 RBC 4.27 (4.2-5.4) M/mm3 Hgb 13.3 (12.0-15.0) g/dl Hct 40.7 (37-47) % MCV 95.3 (81-99) fL MCH 31.1 (27.0-32.0) pg MCHC 32.7 (32-36) g/gl RDW 15.3 H (11.6-14.6) % RDW Differential 51.5 H (35.1-43.9) fl Plt Count 235 (150-450) K/mm3 MPV 11.6 (6.2-12.0) fl Immature Gran % (Auto) 0.500 (0.0-0.9) % Neut % (Auto) 86.0 H (47-70) % Lymph % (Auto) 9.0 L (19-41) % [place] % (Auto) 4.4 (0-10) % Eos % (Auto) 0.0 (0-5) % Baso % (Auto) 0.1 (0-1) % Absolute Neuts (auto) 10.8 H (2.0-7.7) X10^3/uL Absolute Lymphs (auto) 1.14 (0.83-4.51) X10^3/ul Total Counted Not Reportable Sodium 140 (136-145) mmol/L Potassium 4.1 (3.5-5.1) mmol/L Chloride 110 H (98-107) mmol/L Carbon Dioxide 22.0 (21.0-32.0) mmol/L Anion Gap 8 (5-15) BUN 24 H (7-18) mg/dL Creatinine 1.12 H (0.55-1.02) mg/dL Estim Creat Clear Calc 43.13 ml/min Est GFR (MDRD) Af Amer 62 (>60) mL/min Est GFR (MDRD) Non-Af 51 L (>60) mL/min BUN/Creatinine Ratio 21.4 H (10-20) RATIO Glucose 207 H (74-106) mg/dL Calcium 8.5 (8.5-10.1) mg/dL TSH 0.26 L (0.358-3.74) uIU/mL Diagnostic Data: Diagnostic Data Abdomen/Pelvis CT 11/07/17 14:35 IMPRESSION: Decrease in size of the right hepatic mass. Findings suggestive of a mass in the upper pole of the left kidney. Correlation with ultrasound is recommended. Findings areas of metastatic disease involving the lumbar spine. Electronically Signed: Oj Durham MD at 15:39 EDT Tel [phone], Service support , Brain CT 11/07/17 14:35 IMPRESSION: Chronic involutional changes of the brain. Electronically Signed: Oj Durham MD at 15:31 EDT Tel [phone], Service support , Brain MRI 11/08/17 08:00 IMPRESSION: Involutional changes of the brain, as described above. No acute intracranial abnormality. Electronically Signed: Stephanie Hardin MD at 11:52 EDT Tel , Service support , Abdomen CT 11/08/17 17:27 IMPRESSION: 1. Right posterior hepatic segment mass which may be contiguous with questionable suggested confluence with the right adrenal gland. 2. Additional hypoattenuated ill-defined hypoattenuated lesion in the right posterior hepatic segment measuring 2.2 cm, new from prior imaging and concerning for progressive metastatic disease. 3. Multiple hypoattenuated lesions throughout both kidneys which do not meet strict CT criteria for simple cysts, with a dominant partially enhancing versus partially calcified lesion seen in the left lateral upper pole. Dedicated MR imaging is recommended for further characterization. 4. Right-sided spigelian hernia containing nonthickened, nondistended loops of small bowel and colon. Electronically Signed: Tu Salgado MD at 2:01 EDT Tel , Service support , Assessment and Plan Right liver Hemangioma which has been present since 2000, now smaller. No need for further evaluation. Left kidney mass. Pt is a poor historian so not sure where she had treatment but it may be [facility]. Suggestion is to do observation. No need for follow up in the clinic. Thanks. Medications: Prescriptions This Visit Medication Instructions Recorded Erythromycin Ophthalmic 1 each EACH EYE DAILY 11/07/17 Primary Care Provider: Dann Muniz Referring Provider: Code Visit Inpatient E&M: [id number] [facility] Hosp L1
--- NOTE | 2017-11-09 13:26 | CHAPLAIN ---
Type of Pastoral Visit _x__ Initial Visit ___ Follow-up Visit ___ On-call Visit ___ General Patient Visit ___ Spiritual Assessment ___ Family Conference ___ Bereavement ___ Rapid Response ___ Code Blue ___ Other (describe below) Pastoral Care Referral From _x__ Patient ___ Family ___ Nurse ___ Physician ___ Director Of Instrumental Music ___ 8Th Grade Teacher ___ Other (describe below) Sacrament/Intervention _x__ Active listening ___ Anointing ___ Religious ___ Bereavement ___ Communion _x__ Katia exploration ___ _x__ Life review _x__ Prayer ___ Reconciliation ___ Sacrament of Sick _x__ Supportive presence ___ Wedding ___ Other (describe below) Pastoral Comments
--- NOTE | 2017-11-09 14:03 | PCM.PN.HOSP ---
Patient Problems: Active and Suspected Problems Left kidney mass (Acute) Subjective: Patient was seen and examined, denies any visual or auditory hallucination. Was seen by mobile crisis and felt that she is a candidate for inpatient psychiatry treatment on account of persistent hallucinations where she thinks apartment is about. Patient wants to go home. Appreciate all consults, patient will need to follow-up in the outpatient with all the subspecialists. Objective: Physical exam: General: Alert, Oriented x3, Cooperative, No apparent distress HEENT: Atraumatic, PERRLA, EOMI, Normocephalic Oral: Moist Mucosa Neck: Supple Lungs: Clear to auscultation, Normal air movement Cardiovascular: Regular rate, Regular Rhythm, Normal S1, Normal S2, No murmurs Abdomen: Bowel Sounds Present, Soft, Non Tender, Non-Distended, No Hepato-splenomegaly Extremities: No edema Skin: No rashes Musculoskeletal: No Tenderness to Palpation of Joints or Extremities Lymphatic: No Cervical, Supraclavicular, or Inguinal Adenopathy Neurological: Cranial nerves II-XII grossly intact, Motor Exam 5/5 strength throughout Psych/Mental Status: Normal Affect, Appropriate Vitals/I&O's: Vital Signs Temp Pulse Resp BP Pulse Ox 99.2 F H 69 18 118/77 99 11/09/17 09:00 11/09/17 09:00 11/09/17 09:00 11/09/17 09:00 11/09/17 09:00 Oxygen Delivery Method Room Air Intake and Output for Last 24 Hours 11/07/17 11/08/17 11/09/17 23:59 23:59 23:59 Intake Total 500 / 1285 804 / 804 Balance 500 / 1135 804 / 804 Laboratory Results 11/09/17 05:12: [id number] Pending 11/09/17 05:12: Hepatitis A IgM Ab Pending, Hep Bs Antigen Pending, Hep B Core IgM Ab Pending, Hepatitis C Ab (EIA) Pending 11/09/17 05:12: WBC 12.6 H, RBC 4.27, Hgb 13.3, Hct 40.7, MCV 95.3, MCH 31.1, MCHC 32.7, RDW 15.3 H, RDW Differential 51.5 H, Plt Count 235, MPV 11.6, Immature Gran % (Auto) 0.500, Neut % (Auto) 86.0 H, Lymph % (Auto) 9.0 L, [place] % (Auto) 4.4, Eos % (Auto) 0.0, Baso % (Auto) 0.1, Absolute Neuts (auto) 10.8 H, Absolute Lymphs (auto) 1.14, Total Counted Not Reportable 11/09/17 05:12: Sodium 140, Potassium 4.1, Chloride 110 H, Carbon Dioxide 22.0, Anion Gap 8, BUN 24 H, Creatinine 1.12 H, Estim Creat Clear Calc 43.13, Est GFR (MDRD) Af Amer 62, Est GFR (MDRD) Non-Af 51 L, BUN/Creatinine Ratio 21.4 H, Glucose 207 H, Calcium 8.5, TSH 0.26 L Current Medications Hydrocodone Bitart/Acetaminophen ([place] 5mg-325mg) 1 tablet PO Q6H PRN PRN PRN Reason: PAIN Last Admin: 11/09/17 08:55 Dose: 1 tablet Alprazolam (Xanax) 0.25 mg PO TID PRN PRN PRN Reason: ANXIETY Last Admin: 11/09/17 01:24 Dose: 0.25 mg Amitriptyline HCl (Elavil) 50 mg PO QHS [facility] Last Admin: 11/08/17 22:00 Dose: 50 mg Brimonidine Tartrate (Brimonidine 0.2% 5ml Bottle) 1 drop EACH EYE BID [facility] Last Admin: 11/09/17 08:35 Dose: 1 drop Dexamethasone Sodium Phosphate (Decadron) 4 mg IV Q12 [facility] Last Admin: 11/09/17 08:36 Dose: 4 mg Enoxaparin Sodium (Lovenox) 40 mg SC DAILY@1000 [facility] Last Admin: 11/09/17 08:48 Dose: 40 mg Ergocalciferol (Vitamin D) 50,000 unit PO Q7D [facility] Erythromycin () 1 applic EACH EYE DAILY [facility] Last Admin: 11/09/17 08:36 Dose: 1 applicatio Ceftriaxone Sodium (Rocephin) 1 gm in 50 mls @ 100 mls/hr IV Q24 [facility] Last Admin: 11/09/17 08:58 Dose: 100 mls/hr Latanoprost (Xalatan Opthalmic) 1 drop EACH EYE QHS [facility] Last Admin: 11/08/17 21:59 Dose: 1 drop Levothyroxine Sodium (Synthroid) 88 mcg PO DAILY@0600 [facility] Last Admin: 11/09/17 05:47 Dose: 88 mcg Magnesium Hydroxide (Milk Of Magnesia) 30 ml PO DAILY PRN PRN PRN Reason: Constipation Nutritional Formula (Lactose Free) (Ensure Enlive) 120 ml PO 4X/DAY [facility] Last Admin: 11/09/17 08:48 Dose: 120 ml Oxybutynin Chloride (Ditropan) 5 mg PO DAILY [facility] Last Admin: 11/09/17 11:04 Dose: 5 mg Sodium Chloride () 5 - 30 ml IV UD PRN PRN Reason: SALINE FLUSH Last Admin: 11/09/17 08:37 Dose: 10 ml Timolol Maleate (Timoptic) 1 drop EACH EYE BID [facility] Last Admin: 11/09/17 08:36 Dose: 1 drop Medical Necessity - Tobacco Use Smoking Status: Never smoker Assessment/Plan Active and Suspected Problems Left kidney mass (Acute) 72-year-old female with past medical history of underlining mental disorder suspected to be schizoaffective disorder, lives in the community comes in after her home health aide noted her to be confused and hallucinating. 1. Acute metabolic encephalopathy due to UTI, resolved 2. Intermittent hallucinations secondary to underlying suspected schizoaffective disorder, patient seen by mobile crisis and will be transferred to inpatient psych facility 3. Staph epidermidis UTI, believed that the urine cultures growing Staphylococcus likely a contaminant, and on IV ceftriaxone, will continue and switch to cefdinir to complete a total of 5 days antibiotics 4. Acute renal insufficiency, creatinine today appears to be around her baseline; around 1.12, previous creatinine of 1.1 in 2014 5. Right hepatic lobe mass likely hemangioma, request from [facility], this has been present since 2000, the patient had attempted surgery for right hepatectomy that was complicated by IVC injury, bleeding and massive blood transfusions as well as anasarca and hypotension and protracted stay in [facility]. We need to follow-up in the outpatient for this. 6. Hypothyroidism, on levothyroxine 7. DVT Prophylaxis with Lovenox subcu Code Visit Inpatient E&M: [id number] Subs Hosp L2
--- NOTE | 2017-11-09 14:08 | NURSING ---
Dr. Yadav was here and said the patient did not need to follow up with him after her hospital stay. He also conveyed this in his progress note. Prior to him being here an appointment was made for a follow up, but I called and cancelled the appointment. It still shows up in the computer because it will not allow me to delete it, since I was not the one who entered the information.
--- NOTE | 2017-11-09 14:11 | PN_ITS ---
Patient Problems: Active and Suspected Problems Left kidney mass (Acute) Subjective: Patient was seen and examined, denies any visual or auditory hallucination. Was seen by mobile crisis and felt that she is a candidate for inpatient psychiatry treatment on account of persistent hallucinations where she thinks apartment is about. Patient wants to go home. Appreciate all consults, patient will need to follow-up in the outpatient with all the subspecialists. Objective: Physical exam: General: Alert, Oriented x3, Cooperative, No apparent distress HEENT: Atraumatic, PERRLA, EOMI, Normocephalic Oral: Moist Mucosa Neck: Supple Lungs: Clear to auscultation, Normal air movement Cardiovascular: Regular rate, Regular Rhythm, Normal S1, Normal S2, No murmurs Abdomen: Bowel Sounds Present, Soft, Non Tender, Non-Distended, No Hepato- splenomegaly Extremities: No edema Skin: No rashes Musculoskeletal: No Tenderness to Palpation of Joints or Extremities Lymphatic: No Cervical, Supraclavicular, or Inguinal Adenopathy Neurological: Cranial nerves II-XII grossly intact, Motor Exam 5/5 strength throughout Psych/Mental Status: Normal Affect, Appropriate Vitals/I&O's: Vital Signs Temp Pulse Resp BP Pulse Ox 99.2 F H 69 18 118/77 99 11/09/17 09:00 11/09/17 09:00 11/09/17 09:00 11/09/17 09:00 11/09/17 09:00 Oxygen Delivery Method Room Air Intake and Output for Last 24 Hours 11/07/17 11/08/17 11/09/17 23:59 23:59 23:59 Intake Total 500 / 1285 804 / 804 Balance 500 / 1135 804 / 804 Laboratory Results 11/09/17 05:12: [id number] Pending 11/09/17 05:12: Hepatitis A IgM Ab Pending, Hep Bs Antigen Pending, Hep B Core IgM Ab Pending, Hepatitis C Ab (EIA) Pending 11/09/17 05:12: WBC 12.6 H, RBC 4.27, Hgb 13.3, Hct 40.7, MCV 95.3, MCH 31.1, MCHC 32.7, RDW 15.3 H, RDW Differential 51.5 H, Plt Count 235, MPV 11.6, Immature Gran % (Auto) 0.500, Neut % (Auto) 86.0 H, Lymph % (Auto) 9.0 L, [place] % (Auto) 4.4, Eos % (Auto) 0.0, Baso % (Auto) 0.1, Absolute Neuts (auto) 10.8 H , Absolute Lymphs (auto) 1.14, Total Counted Not Reportable 11/09/17 05:12: Sodium 140, Potassium 4.1, Chloride 110 H, Carbon Dioxide 22.0, Anion Gap 8, BUN 24 H, Creatinine 1.12 H, Estim Creat Clear Calc 43.13, Est GFR (MDRD) Af Amer 62, Est GFR (MDRD) Non-Af 51 L, BUN/Creatinine Ratio 21.4 H, Glucose 207 H, Calcium 8.5, TSH 0.26 L Current Medications Hydrocodone Bitart/Acetaminophen ([place] 5mg-325mg) 1 tablet PO Q6H PRN PRN PRN Reason: PAIN Last Admin: 11/09/17 08:55 Dose: 1 tablet Alprazolam (Xanax) 0.25 mg PO TID PRN PRN PRN Reason: ANXIETY Last Admin: 11/09/17 01:24 Dose: 0.25 mg Amitriptyline HCl (Elavil) 50 mg PO QHS [facility] Last Admin: 11/08/17 22:00 Dose: 50 mg Brimonidine Tartrate (Brimonidine 0.2% 5ml Bottle) 1 drop EACH EYE BID [facility] Last Admin: 11/09/17 08:35 Dose: 1 drop Dexamethasone Sodium Phosphate (Decadron) 4 mg IV Q12 [facility] Last Admin: 11/09/17 08:36 Dose: 4 mg Enoxaparin Sodium (Lovenox) 40 mg SC DAILY@1000 [facility] Last Admin: 11/09/17 08:48 Dose: 40 mg Ergocalciferol (Vitamin D) 50,000 unit PO Q7D [facility] Erythromycin () 1 applic EACH EYE DAILY [facility] Last Admin: 11/09/17 08:36 Dose: 1 applicatio Ceftriaxone Sodium (Rocephin) 1 gm in 50 mls @ 100 mls/hr IV Q24 [facility] Last Admin: 11/09/17 08:58 Dose: 100 mls/hr Latanoprost (Xalatan Opthalmic) 1 drop EACH EYE QHS [facility] Last Admin: 11/08/17 21:59 Dose: 1 drop Levothyroxine Sodium (Synthroid) 88 mcg PO DAILY@0600 [facility] Last Admin: 11/09/17 05:47 Dose: 88 mcg Magnesium Hydroxide (Milk Of Magnesia) 30 ml PO DAILY PRN PRN PRN Reason: Constipation Nutritional Formula (Lactose Free) (Ensure Enlive) 120 ml PO 4X/DAY [facility] Last Admin: 11/09/17 08:48 Dose: 120 ml Oxybutynin Chloride (Ditropan) 5 mg PO DAILY [facility] Last Admin: 11/09/17 11:04 Dose: 5 mg Sodium Chloride () 5 - 30 ml IV UD PRN PRN Reason: SALINE FLUSH Last Admin: 11/09/17 08:37 Dose: 10 ml Timolol Maleate (Timoptic) 1 drop EACH EYE BID [facility] Last Admin: 11/09/17 08:36 Dose: 1 drop Medical Necessity - Tobacco Use Smoking Status: Never smoker Assessment/Plan Active and Suspected Problems Left kidney mass (Acute) 72-year-old female with past medical history of underlining mental disorder suspected to be schizoaffective disorder, lives in the community comes in after her home health aide noted her to be confused and hallucinating. 1. Acute metabolic encephalopathy due to UTI, resolved 2. Intermittent hallucinations secondary to underlying suspected schizoaffective disorder, patient seen by mobile crisis and will be transferred to inpatient psych facility 3. Staph epidermidis UTI, believed that the urine cultures growing Staphylococcus likely a contaminant, and on IV ceftriaxone, will continue and switch to cefdinir to complete a total of 5 days antibiotics 4. Acute renal insufficiency, creatinine today appears to be around her baseline; around 1.12, previous creatinine of 1.1 in 2014 5. Right hepatic lobe mass likely hemangioma, request from [facility], this has been present since 2000, the patient had attempted surgery for right hepatectomy that was complicated by IVC injury, bleeding and massive blood transfusions as well as anasarca and hypotension and protracted stay in [facility]. We need to follow- up in the outpatient for this. 6. Hypothyroidism, on levothyroxine 7. DVT Prophylaxis with Lovenox subcu Code Visit Inpatient E&M: [id number] Subs Hosp L2
--- NOTE | 2017-11-09 14:11 | PCM.DC ---
- Discharge Diagnoses Current Active Problems: Current Active and Chronic Problems Liver mass (Chronic) Left kidney mass (Acute) Reason(s) for Visit for Discharge Instructions: Confusion, hallucinations You will use the following diet at home:: Regular Your food should be the consistency of: Regular Your liquids should be the consistency of: Regular/Thin Discharge Activity: Return to Normal Activity Allergies/Adverse Reactions: Allergies ANTIBIOTIC Adverse Reaction (Uncoded 11/07/17 14:17) Other Medications to take at Discharge ALPRAZolam [Xanax] 0.25 mg PO TID PRN PRN 07/20/13 Amitriptyline HCl [Elavil] 50 mg PO QHS 07/20/13 Brimonidine Tartrate/Timolol [Combigan Eye Drops] 1 drop EACH EYE BID 07/20/13 Ergocalciferol [Vitamin D] 50,000 unit PO Q7D 07/20/13 Latanoprost 0.005% [Xalatan Opthalmic] 1 drop EACH EYE QHS 07/20/13 Hydrocodone Bitart/Apap 5-325 [Vicodin 5/325] 1 tablet PO Q6H PRN PRN 09/05/17 Levothyroxine Sodium 88 mcg PO DAILY 09/05/17 Oxybutynin Chloride [Ditropan Xl] 5 mg PO DAILY 09/05/17 Erythromycin Ophthalmic 1 each EACH EYE DAILY 11/07/17 Primary Care Physician: Dann Muniz MD [Primary Care Provider] - Please follow up with your Primary Care Physician in: within 2 weeks of discharge Please Follow Up With: Oncology - Dr. Yadav When: Monday Please Follow Up With: Jose Leigh MD When: in 2 weeks Proposed Discharge Date: 11/09/17
--- NOTE | 2017-11-09 14:13 | DS.PCM_ITS ---
Discharge Date and Diagnosis - Problem List Patient Problems: Active and Suspected Problems Left kidney mass (Acute) Date of Admission: 11/14/17 Date of Discharge: 11/09/17 - Primary Discharge Diagnosis Active and Suspected Problems Left kidney mass (Acute) Right posterior hepatic mass Bilateral complex kidney cysts - Secondary Discharge Diagnosis Chronic Problems Liver mass (Chronic) Thyroid cancer (Chronic) Anxiety disorder (Chronic) Hospital Course and Treatment Imaging Results: Clinical Impression(s) from Imaging Studies Abdomen/Pelvis CT 11/07/17 14:35 IMPRESSION: Decrease in size of the right hepatic mass. Findings suggestive of a mass in the upper pole of the left kidney. Correlation with ultrasound is recommended. Findings areas of metastatic disease involving the lumbar spine. Electronically Signed: Oj Durham MD at 15:39 EDT Tel [phone], Service support , Brain CT 11/07/17 14:35 IMPRESSION: Chronic involutional changes of the brain. Electronically Signed: Oj Durham MD at 15:31 EDT Tel [phone], Service support , Brain MRI 11/08/17 08:00 IMPRESSION: Involutional changes of the brain, as described above. No acute intracranial abnormality. Electronically Signed: Stephanie Hardin MD at 11:52 EDT Tel , Service support , Abdomen CT 11/08/17 17:27 IMPRESSION: 1. Right posterior hepatic segment mass which may be contiguous with questionable suggested confluence with the right adrenal gland. 2. Additional hypoattenuated ill-defined hypoattenuated lesion in the right posterior hepatic segment measuring 2.2 cm, new from prior imaging and concerning for progressive metastatic disease. 3. Multiple hypoattenuated lesions throughout both kidneys which do not meet strict CT criteria for simple cysts, with a dominant partially enhancing versus partially calcified lesion seen in the left lateral upper pole. Dedicated MR imaging is recommended for further characterization. 4. Right-sided spigelian hernia containing nonthickened, nondistended loops of small bowel and colon. Electronically Signed: Tu Salgado MD at 2:01 EDT Tel , Service support , Oncology Urology Operations: None Procedures: None Summary of Care Provided: 72-year-old female with past medical history of underlining mental disorder suspected to be schizoaffective disorder, lives in the community comes in after her home health aide noted her to be confused and hallucinating. 1. Acute metabolic encephalopathy with confusion and hallucinations due to UTI , resolved 2. Intermittent hallucinations secondary to underlying suspected schizoaffective disorder, patient seen by [facility], initially was to be transferred to inpatient psych facility but on re-evaluation, patient will follow-up in the outpatient. 3. Staph epidermidis UTI, likely the urine cultures is growing Staphylococcus, was on IV ceftriaxone, switched to cefdinir to complete 7 days total. 4. Acute renal insufficiency secondary to dehydration, patient's discharge creatinine is close to her baseline. 5. 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 Will need to follow-up in the outpatient for this. 6. Hypothyroidism, on levothyroxine Discharge Diet: No Restrictions Discharge Activity: Return to Normal Activity Home Medications: Medications to take at Discharge ALPRAZolam [Xanax] 0.25 mg PO TID PRN PRN 07/20/13 Amitriptyline HCl [Elavil] 50 mg PO QHS 07/20/13 Brimonidine Tartrate/Timolol [Combigan Eye Drops] 1 drop EACH EYE BID 07/20/13 Ergocalciferol [Vitamin D] 50,000 unit PO Q7D 07/20/13 Latanoprost 0.005% [Xalatan Opthalmic] 1 drop EACH EYE QHS 07/20/13 Hydrocodone Bitart/Apap 5-325 [Nome 5/325] 1 tablet PO Q6H PRN PRN 09/05/17 Levothyroxine Sodium 88 mcg PO DAILY 09/05/17 Oxybutynin Chloride [Ditropan Xl] 5 mg PO DAILY 09/05/17 Erythromycin Ophthalmic 1 each EACH EYE DAILY 11/07/17 Cefdinir [Omnicef [equiv]] 300 mg PO Q12 #6 capsule 11/10/17 Ensure Enlive 120 ml PO 4X/DAY #120 liquid 11/10/17 Following Prescrptions Were Given to Patient: Cefdinir [Omnicef [equiv]] 300 mg PO Q12 #6 capsule Ensure Enlive 120 ml PO 4X/DAY #120 liquid Primary Care Physician: Dann Muniz MD [Primary Care Provider] - Please follow up with your Primary Care Physician in: within 2 weeks of discharge Please Follow Up With: Oncology - Dr. Yadav When: Monday Please Follow Up With: Jose Leigh MD When: in 2 weeks Disposition: Home Minutes spent on discharge:: 25 Patient Condition:: Stable Medical Necessity - Tobacco Use Smoking Status: Never smoker Meaningful Use Info Meaningful Use Diagnoses (Choose all that apply): None applicable Code Visit Inpatient E&M: 31730 Disch Hosp
--- NOTE | 2017-11-09 15:26 | CASEMGMT ---
Social Work Note Call from Pierre with crisis stating that Dr. Box at [facility] has accepted the pt, but that that they are waiting on a bed. There will possibly be one tonight, but Pierre indicates it may be more likely for tomorrow. Pierre to come this evening to provide with pink slip and will keep hospital staff updated. sheetrock applicator updated. Placed call to pt's case work aide, Cris Price, to update on discharge plan via as she was unavailable. Plan: [facility] for psychiatric stabilization. Zahra Mcgregor, PROGRAM FACILITATOR, WELL TESTING OPERATOR
[2017-11-09] MEDS: Amitriptyline 25 MG Tablet 50 MG PO (22:12)
[2017-11-09] MEDS: Cefdinir 300 MG Capsule PO (22:13)
[2017-11-09] MEDS: Latanoprost 0.005% 1 Bottle 1 DRP EACH EYE (22:15)
[2017-11-10 02:03] VITALS: PULSE 53
[2017-11-10 02:34] VITALS: BP 110/64; PULSE 55; RESP 16; TEMP 36.4; O2SAT 95
[2017-11-10 03:07] LABS: HEPATITIS B SURFACE AG Negative (Negative); Hepatitis A IgM Antibody Negative (Negative); Hepatitis B Core AB IgM Negative (Negative)
[2017-11-10] MEDS: Levothyroxine 88 MCG Tablet PO (06:08)
[2017-11-10 08:00] VITALS: BP 123/69; PULSE 52; RESP 14; TEMP 36.3; O2SAT 98
[2017-11-10 08:19] VITALS: PULSE 55
[2017-11-10 09:07] LABS: Alpha Antitrypsin Serum 144 mg/dL (90-200); Hep C Antibodies <0.1 s/co ratio (0.0-0.9)
[2017-11-10] MEDS: BRIMONIDINE 0.2% 5ML BOTTLE 1 DRP EACH EYE (10:09)
[2017-11-10] MEDS: Timolol 0.5% 5ML OPTH.BTL 1 DRP EACH EYE (10:11)
[2017-11-10] MEDS: Erythromycin Base 1 OPTH.TUBE 1 APPLIC EACH EYE (10:11)
[2017-11-10] MEDS: Cefdinir 300 MG Capsule PO (10:11)
[2017-11-10] MEDS: Enoxaparin 40 MG/0.4 ML Syringe SC (10:15)
--- NOTE | 2017-11-10 10:47 | CASEMGMT ---
Social Work Note Call placed to [facility] and spoke with Steph Irwin. tSeph states that [facility] is now stating that will not have a bed for a few days. Steph states that the original crisis workers that evaluated the pt, Mu King, would be in, and he would be seeking alternative placement options for the pt in an attempt to place this date. Zahra Mcgregor, PIPE BUFFER, EXECUTIVE PERSONAL ASSISTANT
--- NOTE | 2017-11-10 11:51 | CASEMGMT ---
Social Work Note RN and physician stating that pt is no longer having visual or audible hallucinations and would like crisis to reevaluate. Placed call to crisis and left a vm with Prema informing that RN and physician are requesting that pt be reevaluated for appropriateness of psych placement. Zahra Mcgregor, NIGHT CLERK AUDITOR, MANAGER APPLE
--- NOTE | 2017-11-10 13:10 | CASEMGMT ---
Social Work Note Placed additional call to [facility] and spoke with Mayur who states that they will send staff to reevaluate after lunch. Zahra Mcgregor, FLAGMAN, LITHOGRAPHIC CAMERA OPERATOR
[2017-11-10] MEDS: Oxybutynin 5 MG Tablet PO (13:57)
[2017-11-10 13:58] VITALS: BP 142/76; PULSE 59; RESP 16; TEMP 36.4; O2SAT 100
--- NOTE | 2017-11-10 14:13 | CASEMGMT ---
Addendum entered by Zahra Mcgregor 11/10/17 14:59: Social Work Note Placed call to Gisel at [facility] and updated to discharge and plan as well. ANALILIA Kauffman LSW Original Note: Addendum entered by Zahra Mcgregor 11/10/17 14:37: Social Work Note Updated by NERY Gonzalez, from [facility] that pt is cleared to go home and they will f/u with her on discharge. Will place on list for mental health case management and have her established with psychiatric services. States that pt is agreeable presently. Mu batista RN. Physician paged. Updated Cris Price CM, at [facility]. Plan: Home ANALILIA Kauffman LSW Original Note: Social Work Note NERY Gonzalez, here to evaluate pt. Provided with update. SW to continue to follow and assist with discharge planning. ANALILIA Kauffman LSW
== END 2017-11-10 17:25 | disposition home or self-care (01) | DRG 689 ==
LOC: ED 14:53 → MS3 17:46
PROVIDERS: Admitting Provider Internal Medicine; Emergency Provider Emergency Medicine; Family Provider Family Medicine; PCP Family Medicine; Visit Provider Internal Medicine
DX: N39.0 Urinary tract infection, site not specified (principal); G93.41 Metabolic encephalopathy; E86.0 Dehydration; F25.9 Schizoaffective disorder, unspecified; D18.03 Hemangioma of intra-abdominal structures; E03.9 Hypothyroidism, unspecified; N28.89 Other specified disorders of kidney and ureter; N28.9 Disorder of kidney and ureter, unspecified; B95.7 Other staphylococcus as the cause of diseases classified elsewhere
CPT/HCPCS: 36415; 70450; 70551; 74160; 74176; 80048; 80053; 80074; 80307; 80320; 81001; 82103; 83605; 83690; 84443; 84484; 85025; 87040; 87077; 87086; 87088; 87186; 93005; 97161; 97165; 97802; 99285; J7030; Q9967; A4216; G0480

== ENCOUNTER 2017-11-26 22:14 | Emergency (ER) | payer MEDICARE, MEDICAID, SELFPAY ==
[2017-11-26 22:14] VITALS: BP 171/94; PULSE 66; RESP 24; TEMP 36.6; O2SAT 100; BMI 25.9
--- NOTE | 2017-11-26 22:43 | ED.VISSUMM ---
- ER Visit Summary Date of Service: 11/26/17 Chief Complaint: Auditory hallucinations History of Present Illness: The patient is a 72 F history of psychiatric illness. Reportedly the patient was hearing her neighbors voice tonight stating that he was going to do this and do that to her. She felt threatened. Patient called the police. This is occurred before. Please did pink slipped her and brought her in. She denies any recent illness. Physical Examination: Well appearing elderly female. He does appear to be anxious. Vital signs are stable afebrile. Pulse ox 100% on room air no signs of hypoxia. HEENT exam atraumatic. Pupils are round reactive light. She does have chronic lazy eye on the right. Facial droop. Normal speech. No signs of trauma to her face or scalp. Neck nontender no lymphadenopathy. Lungs clear to auscultation bilaterally. Heart regular rate and rhythm no murmur. Chest wall nontender. Abdomen soft nontender. Normal bowel sounds no peritoneal signs. She is moving all 4 extremities. They are nontender. No deformity. Normal range of motion. Bilateral equal symmetrical web administrator strength. Bilateral equal symmetrical dorsi and plantar flexion. Back exam is nontender. Neurologically she is awake and alert. She knows the day of the week. She knows the month and the year. She knows the date. She knows the president. There are no focal motor deficits. She has normal speech. Test Results: CBC normal. BMP normal. Tox screen was positive for opiates and benzodiazepines. Alcohol level was negative. Patient had prior CT of the brain and MRI done in October of this year. Those were not repeated. UA showed 5-10 white cells however no red cells or bacteria or nitrates. Emergency Department Course and Treatment: Undergo an ED mental health evaluation. Treatment Plan: On repeat exam at 0008 patient is doing well. Is calm and relaxed. Is waiting ED mental health evaluation. Disposition: Pending crisis evaluation. Impression: Auditory hallucinations with a history of mental illness This note was generated with Donde dictation software. It may contain incorrect words, spelling, and punctuation that were not noted in review of the chart prior to signing ED Disposition - Plan for ED Patient: Chief Complaint: Mental Health Referrals: Dann Muniz MD [Primary Care Provider] -
--- NOTE | 2017-11-26 22:46 | ED.DCSUM_ITS ---
- ER Visit Summary Date of Service: 11/26/17 Chief Complaint: Auditory hallucinations History of Present Illness: The patient is a 72 F history of psychiatric illness. Reportedly the patient was hearing her neighbors voice tonight stating that he was going to do this and do that to her. She felt threatened. Patient called the police. This is occurred before. Please did pink slipped her and brought her in. She denies any recent illness. Physical Examination: Well appearing elderly female. He does appear to be anxious. Vital signs are stable afebrile. Pulse ox 100% on room air no signs of hypoxia. HEENT exam atraumatic. Pupils are round reactive light. She does have chronic lazy eye on the right. Facial droop. Normal speech. No signs of trauma to her face or scalp. Neck nontender no lymphadenopathy. Lungs clear to auscultation bilaterally. Heart regular rate and rhythm no murmur. Chest wall nontender. Abdomen soft nontender. Normal bowel sounds no peritoneal signs. She is moving all 4 extremities. They are nontender. No deformity. Normal range of motion. Bilateral equal symmetrical commercial loan manager strength. Bilateral equal symmetrical dorsi and plantar flexion. Back exam is nontender. Neurologically she is awake and alert. She knows the day of the week. She knows the month and the year. She knows the date. She knows the president. There are no focal motor deficits. She has normal speech. Test Results: CBC normal. BMP normal. Tox screen was positive for opiates and benzodiazepines. Alcohol level was negative. Patient had prior CT of the brain and MRI done in October of this year. Those were not repeated. UA showed 5 -10 white cells however no red cells or bacteria or nitrates. Emergency Department Course and Treatment: Undergo an ED mental health evaluation. Treatment Plan: On repeat exam at 0008 patient is doing well. Is calm and relaxed. Is waiting ED mental health evaluation. Disposition: Pending crisis evaluation. Impression: Auditory hallucinations with a history of mental illness This note was generated with Astrapi dictation software. It may contain incorrect words, spelling, and punctuation that were not noted in review of the chart prior to signing ED Disposition - Plan for ED Patient: Chief Complaint: Mental Health Referrals: Dann Muniz MD [Primary Care Provider] -
[2017-11-26 23:20] LABS: Absolute Lymphocyte Count 2.24 X10^3/ul (0.83-4.51); Absolute Neutrophil Count 3.3 X10^3/uL (2.0-7.7); Basophil# 0.02 X10^3/uL; Basophil% 0.3 % (0-1); Eosinophil# 0.24 X10^3/uL; Eosinophils% 3.8 % (0-5); Hematocrit 38.6 % (37-47); Hemoglobin 12.4 g/dl (12.0-15.0); Lymphocyte # 2.24 X10^3/ul (4.0); Lymphocyte % 35.9 % (19-41); Mean Corp Hgb Conc 32.1 g/gl (32-36); Mean Corpuscular Hgb 30.6 pg (27.0-32.0); Mean Corpuscular Volume 95.3 fL (81-99); Mean Platelet Vol. 11.1 fl (6.2-12.0); Monocyte% 6.4 % (0-10); Neutrophil # 3.32 X10^3/uL (2.7-7.7); Neutrophil % 53.3 % (47-70); POSITIVE COUNT NO; POSITIVE DIFFERENTIAL NO; POSITIVE MORPHOLOGY NO; Platelet Count 225 K/mm3 (150-450); RBC Distribution Width CV 14.9 % (11.6-14.6); RBC Distribution Width SD 51.9 fl (35.1-43.9); Red Blood Count 4.05 M/mm3 (4.2-5.4); White Blood Count 6.2 K/mm3 (4.4-11.0)
[2017-11-26 23:34] VITALS: BP 170/93; O2SAT 100
[2017-11-26 23:35] LABS: Anion Gap 9 (5-15); BUN 20 mg/dL (7-18); BUN/Creat Ratio 18.3 RATIO (10-20); Calcium,Total 8.8 mg/dL (8.5-10.1); Chloride 111 mmol/L (98-107); Creatinine, Serum 1.09 mg/dL (0.55-1.02); EST Glomerular Filtration Rate 53 mL/min (>60); Est Glom Filt Rate - Afr Amer 64 mL/min (>60); Estimated Creatinine Clearance 44.32 ml/min; Glucose 89 mg/dL (74-106); Potassium 3.6 mmol/L (3.5-5.1); Sodium Level 145 mmol/L (136-145)
[2017-11-26 23:42] LABS: Vista UDS pH Range 7
[2017-11-26 23:52] LABS: Alcohol, Blood (Medical)-Serum < 3.0 mg/dL
[2017-11-27] LABS: Amphetamine Urine VISTA NEGATIVE (<1000 ng/mL); Barbiturate Urine VISTA NEGATIVE (< 200 ng/mL); Benzodiazepine Urine VISTA POSITIVE (< 200 ng/mL); Cocaine Urine VISTA NEGATIVE (< 300 ng/mL); Ecstacy Urine VISTA NEGATIVE (< 500 ng/mL); Methadone Urine VISTA NEGATIVE (< 300 ng/mL); PCP Urine VISTA NEGATIVE (< 25 ng/mL); THC Urine VISTA NEGATIVE (< 50 ng/mL)
--- NOTE | 2017-11-27 00:06 | NURSING ---
CALLED CRISIS TO SEE THIS PT , ELVIA IS CLAY PRESS OPERATOR
[2017-11-27 00:09] VITALS: O2SAT 95
--- NOTE | 2017-11-27 00:14 | NURSING ---
ELVIA CALLED BACK, SHE IS AT [facility], SHE WILL BE HERE WHEN DONE
[2017-11-27 00:15] LABS: Bacteria 0 SEEN /hpf (None Seen); Mucous, Urine 0 SEEN /hpf (<or=2+); Red Blood Cells-Urine 0 SEEN /hpf (0-5); Squamous Epithelial Cells - UA 0 SEEN /hpf (5-10)
[2017-11-27 00:17] LABS: Color, Urine Yellow (Yellow); Glucose, Dipstick Normal (Normal); Ketone-Dipstick Negative (Negative); Leukocyte Esterase-Dipstick 500 /ul (Negative); Nitrite-Dipstick Negative (Negative); Occult Blood-Urine Negative /ul (Negative); Protein-Dipstick Negative (Negative); Specific Gravity, Urine 1.015 (1.002-1.030); Urine Bilirubin Dipstick Negative (Negative); Urine Clarity Clear (Clear); Urine Urobilinogen Normal (Normal)
[2017-11-27 00:30] LABS: White Blood Cells 5-10 SEEN /hpf (0-5)
[2017-11-27 01:12] VITALS: PULSE 63; O2SAT 99
--- NOTE | 2017-11-27 02:46 | NURSING ---
CRISIS ON SITE
--- NOTE | 2017-11-27 03:56 | EKG12_ITS ---
Test Reason : Blood Pressure : / mmHG Vent. Rate : 058 BPM Atrial Rate : 058 BPM P-R Int : 138 ms QRS Dur : 100 ms QT Int : 458 ms P-R-T Axes : 057 020 048 degrees QTc Int : 449 ms Sinus bradycardia Otherwise normal ECG Confirmed by IZZY COHEN, HILDA ([id number]), script editor HOUSTON MENDEZ ([id number]) on 11/30/2017 1:55:54 PM Referred By: Dann Muniz Confirmed By:HILDA MAGANA MD
--- NOTE | 2017-11-27 05:40 | ED.RN ---
morning medications and breakfast ordered at this time
[2017-11-27 06:33] VITALS: BP 143/88; PULSE 68; RESP 20; TEMP 36.4; O2SAT 97
--- NOTE | 2017-11-27 06:47 | ED.RN ---
patient being transferred to [facility]. patient belonging list Completed. Patient presents with multiple medication bottles. Medications counted with Caren Erickson as Witness, 6 bottles of eye drops 2 bottles of hydrocorisone cream 3 over the counter medication bottles prescription medications amitiriplyine 0 xannax 77 tabs Morton 21 tabs oxybutin 20 tabs
[2017-11-27 06:53] VITALS: BP 143/88; PULSE 68; RESP 20; TEMP 36.4; O2SAT 98
[2017-11-27] MEDS: Oxybutynin 5 MG Tablet PO (06:59)
[2017-11-27] MEDS: Aspirin 81 MG TAB.CHEW PO (06:59)
[2017-11-27] MEDS: Levothyroxine 88 MCG Tablet PO (06:59)
[2017-11-27 07:43] VITALS: BP 127/66; PULSE 50; RESP 14; O2SAT 97
[2017-11-27 08:15] VITALS: BP 156/65; PULSE 57; RESP 16; O2SAT 96
== END 2017-11-27 08:15 | disposition short-term general hospital (02) ==
PROVIDERS: Emergency Provider Emergency Medicine; Family Provider Family Medicine; PCP Family Medicine
DX: R44.0 Auditory hallucinations (principal)
CPT/HCPCS: 36415; 80048; 80307; 80320; 81001; 85025; 93005; 99285; G0480

== ENCOUNTER 2019-03-09 10:57 | Emergency (ER) | payer MEDICARE, MEDICAID, SELFPAY ==
[2019-03-09 10:58] VITALS: BP 115/68; PULSE 62; RESP 16; TEMP 36.8; O2SAT 95; BMI 29.2
--- NOTE | 2019-03-09 11:43 | CT_ITS ---
STUDY: CT ABDOMEN AND PELVIS WITHOUT CONTRAST REASON FOR EXAM: Female, 73 years old. Left flank pain RADIATION DOSAGE (If Supplied By Facility): CTDIvol = ( 10.61 ) mGy, DLP = ( 567.06 ) mGycm TECHNIQUE: Transaxial images were obtained from the dome of the diaphragm to the symphysis pubis without oral contrast, and without intravenous contrast. Sagittal and coronal images were reconstructed. Individualized dose optimization techniques were used for this CT. COMPARISON: 11/08/2017 FINDINGS: The visualized lung bases are unremarkable. The visualized portions of the heart are within normal limits. Surgical clips along the right hepatic lobe compatible with partial hepatectomy. The dominant mass of the right hepatic lobe as on the prior study is evident on image 37, grossly similar although limited in detail without IV contrast. The secondary lesion of the right posterior hepatic lobe may be evident on image 45 limited detail without IV contrast. Normal gallbladder and extrahepatic biliary system. Normal spleen. Normal pancreas. Normal bilateral adrenal glands. Renal low-density lesions of the left kidney (upper, anterior 3.8 cm; mid, posterior 3.7 cm) have increased in size since the prior study, limited detail without IV contrast. No hydronephrosis or urinary tract calcifications. Punctate calcifications of the inferior right kidney are similar. Cystic lesion of the inferior right kidney is grossly similar. Normal visualized stomach. Normal small intestine. Normal colon. The appendix is visualized and appears normal. There is diffuse atherosclerotic calcification of the abdominal aorta, without a demonstrated aneurysm. 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 Normal retroperitoneum. Normal urinary bladder. Similar right anterolateral abdominal wall hernia containing small bowel without evidence of bowel obstruction. Normal osseous structures. CT/Abdomen/Pelvis without Cont IMPRESSION: 1. No hydronephrosis or ureter calcifications. 2. INCREASED size of left anterior mid renal cystic lesions limited in detail without IV contrast. Recommend correlation with ultrasound and/or renal protocol MRI/CT. 3. The posterior right hepatic mass is not well-seen on the current study but is grossly similar. 4. Right anterolateral abdominal wall hernia containing small bowel. No evidence of bowel obstruction and stable. Electronically Signed: Julián Buckner MD at 12:59 EDT , Service support ,
--- NOTE | 2019-03-09 11:45 | ED.VIS.GEN ---
History of Present Illness Chief Complaint: Back Detail of Chief Complaint: Left flank pain Informant: Patient Onset: Today Context: Sudden Onset Timing: Continuous - Now improved Current Severity: Mild Maximum Severity: Moderate Narrative: Patient reports to me rather abrupt onset of pain around her left kidney earlier this morning. Pain lasted approximately 4-5 hours but is now improved. Patient tells me she thinks she has a urinary tract infection. She denies pain radiating into her legs. She does complain of a right-sided abdominal hernia that she has had for quite some time. She was reportedly given a pain pill this morning by her nurse. It is noted that when the nurse signed her into the computer, she was complaining of right sided back pain going down her legs. Patient denied that to me on my evaluation. - Past Medical History (1) Left kidney mass Status: Acute (2) Anxiety disorder Status: Chronic (3) Hemangioma of liver Status: Chronic (4) Liver mass Status: Chronic (5) Thyroid cancer Status: Chronic Past Medical History - Allergies and Home Meds Allergies/Adverse Reactions: Allergies Penicillins Allergy (Verified 03/09/19 11:21) Unknown Sulfa (Sulfonamide Antibiotics) Allergy (Verified 03/09/19 11:21) Unknown Primary Care Physician: Dann Muniz MD [Primary Care Provider] - Doctors: Dr. Yadav Prior records reviewed: Yes Past Medical History: - - Reviewed Lives: - - Assisted-living Smoking Status: Never smoker - Family History Maternal Family History: Family History (Last Reviewed 05/30/18 @ 13:54 by Megan Rai) Other no family history Family History: Reports: No pertinent history, - Review of Systems General: Denies: Chills, Fever Eyes: Denies: Visual changes - left, Visual changes - right ENT: Denies: Bilateral ear pain Cardiovascular: Denies: Chest pain Respiratory: Denies: Dyspnea, Cough Gastrointestinal: Reports: Abdominal pain - Chronic right-sided abdominal hernia. Denies: Nausea, Vomiting Genitourinary: Reports: - - Patient does report urgency. Denies: Dysuria, Hematuria Musculoskeletal: Reports: Back pain - Left flank pain Skin: Denies: Rash Neurological: Denies: Headache Endocrine: Denies: Polyuria, Polydipsia Allergy: Denies: Uticaria Physical Exam Vital Signs/Narrative: Vital Signs Temp Pulse Resp BP Pulse Ox 03/09/19 10:58 98.3 F 62 16 115/68 95 Inital Vital Signs reviewed: Yes General: Well nourished, Well developed Head: Normocephalic ENT: Moist mucous membranes Cardiovascular: Regular rate, Regular rhythm Respiratory: No distress, CTA bilaterally Abdomen: Soft, Tender - Mild right-sided tenderness palpation. No guarding or rebound., Hypoactive bowel sounds Back: CVA tenderness - Tenderness palpation to the left CVA region as well as the left lumbar paraspinals. Extremities: Nontender Skin: Normal color Neurological: Alert, Oriented x3 Psychological: Normal affect Diagnostic/Tx/Re-eval Impressions Abdomen/Pelvis CT 03/09/19 11:43 IMPRESSION: 1. No hydronephrosis or ureter calcifications. 2. INCREASED size of left anterior mid renal cystic lesions limited in detail without IV contrast. Recommend correlation with ultrasound and/or renal protocol MRI/CT. 3. The posterior right hepatic mass is not well-seen on the current study but is grossly similar. 4. Right anterolateral abdominal wall hernia containing small bowel. No evidence of bowel obstruction and stable. Electronically Signed: Julián Buckner MD at 12:59 EDT , Service support , 03/09/19 11:43 Abdomen/Pelvis without Cont [CT] Stat Laboratory Results 03/09/19 03/09/19 03/09/19 12:00 12:10 12:10 WBC 9.6 RBC 4.59 Hgb 14.7 Hct 43.5 MCV 94.8 MCH 32.0 MCHC 33.8 RDW Std Deviation 50.5 H RDW Coeff of Salvador 14.6 Plt Count 250 MPV 11.1 Immature Gran % (Auto) 0.900 Neut % (Auto) 69.2 Lymph % (Auto) 21.9 [place] % (Auto) 5.8 Eos % (Auto) 1.7 Baso % (Auto) 0.5 Absolute Neuts (auto) 6.6 Absolute Lymphs (auto) 2.10 Absolute Nucleated RBC 0.00 Nucleated RBC % 0 Sodium 136 Potassium 4.8 Chloride 104 Carbon Dioxide 27.0 Anion Gap 5 BUN 24 H Creatinine 1.32 H Estim Creat Clear Calc 36.06 Est GFR (MDRD) Af Amer 51 L Est GFR (MDRD) Non-Af 42 L BUN/Creatinine Ratio 18.2 Glucose 169 H Calcium 8.9 Urine Color STRAW Urine Clarity Cloudy Urine pH 6.0 Ur Specific [place] 1.020 Urine Protein 30 H Urine Glucose (UA) Normal Urine Ketones Negative Urine Occult Blood 50 H Urine Nitrite Positive H Urine Bilirubin Negative Urine Urobilinogen Normal Ur Leukocyte Esterase 500 H Urine RBC 0 SEEN Urine WBC >100 SEEN Ur Squamous Epith Cells 0-5 SEEN Ur Renal Epithelial Cell 0-5 SEEN Urine Bacteria 1+ Hyaline Casts 0-5 SEEN Urine Mucus 0 SEEN - Medical Decision Making Patient's urine is consistent with a UTI. She is given a dose of Rocephin here will be discharged with a prescription for Cefdinir which she has done well with in the past. She does have allergies to penicillin and sulfa. Patient voices understanding and agreement with the plan. She will return if her symptoms worsen. ED Disposition - Plan for ED Patient: Disposition: Home or Assisted Living Diagnosis: Pyelonephritis Instructions: PYELONEPHRITIS, Female (Adult) Prescriptions: Cefdinir 300 mg PO BID #14 capsule Referrals: Dann Muniz MD [Primary Care Provider] - 5-7 Days
[2019-03-09 12:07] LABS: Mucous, Urine 0 SEEN /hpf (<or=2+); Red Blood Cells-Urine 0 SEEN /hpf (0-5)
[2019-03-09 12:15] LABS: Glucose, Dipstick Normal (Normal); Ketone-Dipstick Negative (Negative); Leukocyte Esterase-Dipstick 500 /ul (Negative); Nitrite-Dipstick Positive (Negative); Occult Blood-Urine 50 /ul (Negative); Protein-Dipstick 30 mg/dl (Negative); Urine Bilirubin Dipstick Negative (Negative); Urine Clarity Cloudy (Clear); Urine Urobilinogen Normal (Normal)
[2019-03-09 12:16] LABS: Absolute Neutrophil Count 6.6 X10^3/uL (2.0-7.7); Basophil# 0.05 X10^3/uL; Basophil% 0.5 % (0-1); Eosinophil# 0.16 X10^3/uL; Eosinophils% 1.7 % (0-5); Hematocrit 43.5 % (37-47); Hemoglobin 14.7 g/dL (12.0-15.0); Lymphocyte % 21.9 % (19-41); Mean Corp Hgb Conc 33.8 g/dL (32-36); Mean Corpuscular Volume 94.8 fL (81-99); Mean Platelet Vol. 11.1 fl (6.2-12.0); Monocyte# 0.56 X10^3/uL; Monocyte% 5.8 % (0-10); NRBC Flagged by Analyzer 0 % (0-5); Neutrophil # 6.63 X10^3/uL (2.7-7.7); Neutrophil % 69.2 % (47-70); Platelet Count 250 K/mm3 (150-450); RBC Distribution Width CV 14.6 % (11.6-14.6); RBC Distribution Width SD 50.5 fl (35.1-43.9); Red Blood Count 4.59 M/mm3 (4.2-5.4); White Blood Count 9.6 K/mm3 (4.4-11.0)
[2019-03-09] MEDS: 0.9% Normal Saline 1,000 ML 150 ML IV (12:22)
[2019-03-09 12:30] LABS: Anion Gap 5 (5-15); BUN 24 mg/dL (7-18); BUN/Creat Ratio 18.2 RATIO (10-20); Calcium,Total 8.9 mg/dL (8.5-10.1); Chloride 104 mmol/L (98-107); Creatinine, Serum 1.32 mg/dL (0.55-1.02); EST Glomerular Filtration Rate 42 mL/min (>60); Est Glom Filt Rate - Afr Amer 51 mL/min (>60); Estimated Creatinine Clearance 36.06 ml/min; Glucose 169 mg/dL (74-106); Potassium 4.8 mmol/L (3.5-5.1); Sodium Level 136 mmol/L (136-145)
[2019-03-09 12:32] LABS: Bacteria 1+ /hpf (None Seen); Color, Urine STRAW (Yellow); Renal Epithelial Cells 0-5 SEEN /hpf (0-5); Squamous Epithelial Cells - UA 0-5 SEEN /hpf (5-10); White Blood Cells >100 SEEN /hpf (0-5)
[2019-03-09 12:33] LABS: Hyaline Cast 0-5 SEEN /lpf (0-5)
[2019-03-09 13:03] VITALS: BP 124/75; O2SAT 96
[2019-03-09] MEDS: Ceftriaxone 1 GM/50 ML BAG IV (13:53)
--- NOTE | 2019-03-09 14:17 | ED.RN ---
GAVE REPORT TO JIA.
[2019-03-09 14:26] VITALS: BP 121/77; PULSE 71; RESP 14; O2SAT 95
== END 2019-03-09 14:49 | disposition home or self-care (01) ==
PROVIDERS: Emergency Provider Emergency Medicine; Family Provider Family Medicine; PCP Family Medicine
DX: N12 Tubulo-interstitial nephritis, not specified as acute or chronic (principal); Z88.0 Allergy status to penicillin; Z88.2 Allergy status to sulfonamides; F41.9 Anxiety disorder, unspecified; D18.09 Hemangioma of other sites; Z85.850 Personal history of malignant neoplasm of thyroid
CPT/HCPCS: 74176; 80048; 81001; 85025; 87086; 87088; 87186; 99285; J7030; A4216

== ENCOUNTER 2019-03-11 07:19 | Inpatient (IN) | payer MEDICARE, MEDICAID, SELFPAY ==
[2019-03-11] VITALS (7 sets, daily range): BP systolic 103–132; BP diastolic 57–95; PULSE 55–68; RESP 16–18; TEMP 36.4–36.8; O2SAT 92–99; BMI 29.9; BMI 29.7
[2019-03-11 08:10] LABS: Absolute Lymphocyte Count 1.11 X10^3/uL (0.83-4.51); Absolute Neutrophil Count 5.8 X10^3/uL (2.0-7.7); Basophil# 0.02 X10^3/uL; Basophil% 0.3 % (0-1); Eosinophil# 0.16 X10^3/uL; Eosinophils% 2.1 % (0-5); Hematocrit 41.1 % (37-47); Lymphocyte # 1.11 X10^3/ul (4.0); Lymphocyte % 14.5 % (19-41); Mean Corp Hgb Conc 34.1 g/dL (32-36); Mean Corpuscular Hgb 31.5 pg (27.0-32.0); Mean Corpuscular Volume 92.4 fL (81-99); Mean Platelet Vol. 10.9 fl (6.2-12.0); Monocyte# 0.49 X10^3/uL; Monocyte% 6.4 % (0-10); NRBC Flagged by Analyzer 0 % (0-5); Neutrophil # 5.77 X10^3/uL (2.7-7.7); Neutrophil % 75.5 % (47-70); Platelet Count 223 K/mm3 (150-450); RBC Distribution Width CV 14.6 % (11.6-14.6); RBC Distribution Width SD 49.1 fl (35.1-43.9); Red Blood Count 4.45 M/mm3 (4.2-5.4); White Blood Count 7.6 K/mm3 (4.4-11.0)
[2019-03-11] MEDS: Morphine 4 MG/ML Syringe IV (08:16)
[2019-03-11] MEDS: 0.9% Normal Saline 1,000 ML 150 ML IV (08:16)
[2019-03-11] MEDS: Ondansetron 4 MG/2 ML Vial IV (08:16)
[2019-03-11 08:28] LABS: Anion Gap 3 (5-15); BUN 18 mg/dL (7-18); BUN/Creat Ratio 14.8 RATIO (10-20); Calcium,Total 8.9 mg/dL (8.5-10.1); Chloride 107 mmol/L (98-107); Creatinine, Serum 1.22 mg/dL (0.55-1.02); EST Glomerular Filtration Rate 46 mL/min (>60); Est Glom Filt Rate - Afr Amer 56 mL/min (>60); Estimated Creatinine Clearance 39.02 ml/min; Glucose 137 mg/dL (74-106); Potassium 4.1 mmol/L (3.5-5.1); Sodium Level 137 mmol/L (136-145)
[2019-03-11 09:38] LABS: Bacteria 0 SEEN /hpf (None Seen); Red Blood Cells-Urine 0 SEEN /hpf (0-5)
[2019-03-11 09:39] LABS: Color, Urine Straw (Yellow); Glucose, Dipstick Normal (Normal); Ketone-Dipstick Negative (Negative); Leukocyte Esterase-Dipstick 25 /ul (Negative); Nitrite-Dipstick Negative (Negative); Occult Blood-Urine Negative /ul (Negative); Protein-Dipstick Negative (Negative); Urine Bilirubin Dipstick Negative (Negative); Urine Clarity Clear (Clear); Urine Urobilinogen Normal (Normal)
[2019-03-11 09:51] LABS: Mucous, Urine RARE /hpf (<or=2+); Squamous Epithelial Cells - UA 0-5 SEEN /hpf (5-10); White Blood Cells 0-5 SEEN /hpf (0-5)
--- NOTE | 2019-03-11 10:20 | ED.VISSUMM ---
- ER Visit Summary Date of Service: 03/11/19 Chief Complaint: [Back pain and weakness] History of Present Illness: The patient is a 73 F [the emergency department with back pain and generalized weakness today. Patient's had symptoms for about a week of back pain. She was seen in the emergency department 2 days ago and diagnosed with a urinary tract infection. Patient was started on Cefdinir. Patient denies any pain rating down her legs. She describes the pain is more right flank. She has had some mild nausea but no vomiting. She denies any fevers. Today she was having hard time walking. Patient has also been incontinent of urine now.] Physical Examination: [HEENT-PERRLA, EOMI. Cranial nerves II through XII grossly intact. TMs clear. Mucous membranes moist. No adenopathy. Cardiovascular-regular rate and rhythm without murmur or ectopy Lungs-clear to auscultation, chest wall stable without crepitus or subcu emphysema Abdomen-normoactive bowel sounds, soft, nontender, no rebound or rigidity, no peritoneal signs. Back exam-patient has tenderness palpation over the right flank that seems to reproduce her pain. No pain in the midline over the thoracic or lumbar spine. Patient has negative straight leg raises. Deep tendon reflexes are plus 2 out of 4 bilaterally at the patella and Achilles. Patient has normal 5 extension. Extremities-intact ?4, normal range of motion, normal pulses, atraumatic] Test Results: [CBC with differential was normal. Chemistries unremarkable. Urinalysis was normal.] Emergency Department Course and Treatment: [She was given 4 mg of morphine and 4 mg of Zofran for pain that she rated as a 10 out of 10.] Treatment Plan: [Admit for pain control.] Disposition: [Admit] Impression: [Back pain Weakness Difficulty ambulating.] This note was generated with [employer] dictation software. It may contain incorrect words, spelling, and punctuation that were not noted in review of the chart prior to signing ED Disposition - Plan for ED Patient: Referrals: Dann Muniz MD [Primary Care Provider] -
--- NOTE | 2019-03-11 10:27 | NURSING ---
DR WILFRED ALVARADO
--- NOTE | 2019-03-11 10:40 | NURSING ---
MED SURG DEBILITY, DIFFICULTY AMBULATING, INTRACTABLE RT FLANK PAIN RECENT UTI ASHELFAH
--- NOTE | 2019-03-11 12:26 | HP.PCM_ITS ---
Problem List (1) Anxiety disorder Status: Chronic (2) Thyroid cancer Status: Chronic (3) Left kidney mass Status: Chronic (4) Hemangioma of liver Status: Chronic History of Present Illness Date of Admission: 03/11/19 Chief Complaint: Rt. flank/ back pain. The patient is a 73 year old F with past medical history as mentioned above presented to the emergency room from the assisted living because of right flank/back pain with weakness in the setting of recent diagnosis of acute cystitis. The patient is a poor informant but she was able to provide some information about her complaints. She mentioned that since yesterday, she has been having increasing right back pain towards the right flank, sharp pain, 10 out of 10 in severity according to the patient, not radiating, aggravated by movement, associated with weakness as well as urinary incontinence. Apart from incontinence, she denies any other urinary symptoms. She denied radiation of the pain down to her legs, denied numbness or tingling. She denied mechanical fall or trauma. She came to the emergency room 2 days ago, was diagnosed with UTI and she was discharged on cefdinir. Today in the emergency department, her vital signs were stable. Her routine blood work was remarkable for creatinine of 1.22, otherwise normal. Urinalysis revealed clear urine, negative for nitrites, there was 0-5 WBCs and no bacteria seen. She is being admitted for intractable right flank/back pain in the setting of recent UTI/pyelonephritis which was treated appropriately. Past Medical History Past Medical History (Chronic Problems): Chronic Problems (Last Reviewed 05/30/18 @ 13:54 by Megan Rai) Anxiety disorder (Chronic) Thyroid cancer (Chronic) Liver mass (Chronic) Left kidney mass (Chronic) Hemangioma of liver (Chronic) Medical History: Medical History (Last Reviewed 05/30/18 @ 13:54 by Megan Rai) Anxiety disorder F41.9 History of hysterectomy Z90.710 1961 Knee contusion S80.00XA Thyroid cancer C73 removed eye lens bilateral 2001 Allergies Penicillins Allergy (Verified 03/11/19 07:32) Unknown Sulfa (Sulfonamide Antibiotics) Allergy (Verified 03/11/19 07:32) Unknown Home Medications: Ambulatory Orders Medication Instructions Recorded Aspirin [Aspirin, Baby] 81 mg PO DAILY@0800 03/09/19 Benztropine Mesylate 1 mg PO BID 03/09/19 Brimonidine Tartrate/Timolol 1 drp OP BID 03/09/19 [Combigan 0.2%-0.5% Eye Drops] Cefdinir 300 mg PO BID #14 cap 03/09/19 Docusate Sodium [Dok] 100 mg PO BID PRN 03/09/19 Ergocalciferol (Vitamin D2) 50,000 unit PO FR 03/09/19 [Vitamin D2] Hydrocodone/Acetaminophen [[place] 1 ea PO Q6H PRN 03/09/19 5-325 Tablet] Latanoprost 0.005% [Xalatan 1 drp EACH EYE QHS 03/09/19 Opthalmic] Levothyroxine [Synthroid] 88 mcg PO DAILY 03/09/19 Melatonin 5 mg PO QHS 03/09/19 Mirtazapine [Remeron] 15 mg PO QHS 03/09/19 Olanzapine [Zyprexa] 5 mg PO QHS 03/09/19 Pantoprazole Sodium [Protonix] 40 mg PO BID 03/09/19 Surgical History: Surgical History (Last Reviewed 05/30/18 @ 13:54 by Megan Rai) History of thyroidectomy E89.0 Surgical History: - - History of abandoned right hepatectomy for right hemangioma, complicated by injury to IVC. Psychiatric History: Anxiety ACUTE CARE CLINICAL NURSE SPECIALIST History: No pertinent ACUTE CARE CLINICAL NURSE SPECIALIST history Lives: - - Assisted living. Smoking Status: Never smoker Alcohol: None Drugs: None - *Family History Maternal Family History: Family History (Last Reviewed 05/30/18 @ 13:54 by Megan Rai) Other no family history History Items: No pertinent history Paternal Family History: Family History (Last Reviewed 05/30/18 @ 13:54 by Megan Rai) Other no family history History Items: No pertinent history Review of Systems Constitutional: Reports: Weakness. Denies: Anorexia, Chills, Fever Eyes: Denies: Blurred vision, Double vision, Drainage, Redness HEENT: Denies: Difficulty Hearing, Ear Pain, Eye Pain, Nasal Congestion, Sore Throat Cardiovascular: Denies: Chest Pain, Chest Tightness, Heaviness, Light Headedness, Palpitations Respiratory: Denies: Cough, Pleuritic Pain, Shortness of Breath, Sputum production, Wheezing Gastrointestinal: Reports: Abdominal Pain. Denies: Constipation, Diarrhea, Hematochezia, Nausea, Melena, Vomiting Genitourinary: Reports: Incontinence. Denies: Dysuria, Frequency, Hematuria Musculoskeletal: Denies: Arm Pain, Back Pain, Foot Pain Skin: Denies: Dryness, Rash Neurological: Denies: Balance problems, Blurred vision, Change in Speech, Slurred speech, Confusion, Headaches, Incoordination Psychiatric: Reports: Anxiety. Denies: Depression Endocrine: Denies: Change in Body Habitus, Polydipsia, Polyuria VTE Information - Inpt Only VTE Present on Admission: No VTE Mechan Device Prophylaxis: None VTE Pharm Prophylaxis ordered?: Yes - Physical Exam General: Alert, Oriented x3, Cooperative, No apparent distress HEENT: Atraumatic, PERRLA, EOMI, Normocephalic Oral: Moist Mucosa, No Gingival or Mucosal Lesions/ Ulcerations Neck: Supple, No JVD, Negative Carotid Bruits, Trachea Midline, Thyroid Normal Size and Texture Lungs: Clear to auscultation, Normal air movement, No rhonchi, No wheeze, No rales, Diminished Cardiovascular: Regular rate, Regular Rhythm, Normal S1, Normal S2 Abdomen: Bowel Sounds Present, Soft, Non-Distended, No Hepato-splenomegaly, - - Right flank tenderness. Extremities: No clubbing, No cyanosis, No edema Skin: No rashes, No breakdown Lymphatic: No Cervical, Supraclavicular, or Inguinal Adenopathy Neurological: Cranial nerves II-XII grossly intact, Motor Exam 5/5 strength throughout Psych/Mental Status: Normal Affect, Appropriate, Alert and oriented to time, place, person, mood and affect Vital Signs Temp Pulse Resp BP Pulse Ox 98.3 F 66 18 109/66 95 03/11/19 07:40 03/11/19 10:38 03/11/19 10:38 03/11/19 10:38 03/11/19 10:38 Oxygen Delivery Method Room Air Weight: 185 lb 3.013 oz Body Mass Index (BMI) 29.9 Laboratory Tests Past 24 Hrs 03/11/19 03/11/19 03/11/19 08:00 08:00 09:33 WBC 7.6 RBC 4.45 Hgb 14.0 Hct 41.1 MCV 92.4 MCH 31.5 MCHC 34.1 RDW Std Deviation 49.1 H RDW Coeff of [place] 14.6 Plt Count 223 MPV 10.9 Immature Gran % (Auto) 1.200 H Neut % (Auto) 75.5 H Lymph % (Auto) 14.5 L [place] % (Auto) 6.4 Eos % (Auto) 2.1 Baso % (Auto) 0.3 Absolute Neuts (auto) 5.8 Absolute Lymphs (auto) 1.11 Absolute Nucleated RBC 0.00 Nucleated RBC % 0 Sodium 137 Potassium 4.1 Chloride 107 Carbon Dioxide 27.0 Anion Gap 3 L BUN 18 Creatinine 1.22 H Estim Creat Clear Calc 39.02 Est GFR (MDRD) Af Amer 56 L Est GFR (MDRD) Non-Af 46 L BUN/Creatinine Ratio 14.8 Glucose 137 H Calcium 8.9 Urine Color Straw Urine Clarity Clear Urine pH 5.0 Ur Specific [place] 1.010 Urine Protein Negative Urine Glucose (UA) Normal Urine Ketones Negative Urine Occult Blood Negative Urine Nitrite Negative Urine Bilirubin Negative Urine Urobilinogen Normal Ur Leukocyte Esterase 25 H Urine RBC 0 SEEN Urine WBC 0-5 SEEN Ur Squamous Epith Cells 0-5 SEEN Urine Bacteria 0 SEEN Urine Mucus RARE Assessment/Plan This is a 73 years old female patient presented to the emergency room because of right flank/back pain in context of recent diagnosis of acute cystitis, has been on antibiotics and she is being admitted for intractable pain for pain control as well as evaluation. #1 right flank/back pain: Unclear etiology, could be related to the recent pyelonephritis. She had CT scan abdomen and pelvis without contrast done on March 09, 2019 and revealed no hydronephrosis, increased size of the left mid renal cystic lesion, stable right hepatic mass. Patient was on Ceftin ear for the last couple of days for recent acute cystitis. Urine analysis revealed clearing urine, infection is being treated. Patient denied trauma or mechanical fall. [facility], IV fluids, IV morphine PRN, x-ray lumbar spine, ultrasound kidneys, repeat CBC and BMP tomorrow morning. #2 recent E. coli acute cystitis: Urinalysis reviewed, it is being treated appropriately. Urine culture that was done on March 09, 2019 revealed presumptive E. coli, it was sensitive to cephalosporins. Plan to continue cefdinir to complete a total of 5 days of treatment. #3 stage III chronic kidney disease: Baseline creatinine has been around 1.1 to 1.3 mg/dL. Admission creatinine is 1.22, stable at baseline. #4 hemangioma of the liver: Status post abandonment surgery because surgery complicated by injury of IVC. This was done back in [address] [facility] scan abdomen on March 09 revealed similar size right hepatic mass. Stable. #5 left kidney cyst/mass: Previously, it was presumed that this mass is due to cystic lesion. This lesion is on the left side and it is not on the side what the patient has the pain. CT scan report revealed increased size left renal cystic lesion. Plan to do ultrasound kidneys. #6 anxiety disorder: Continue Zyprexa, Remeron. #7 history of thyroid cancer/status post surgery/hypothyroidism: Continue levothyroxine. #8 DVT prophylaxis: Subcu Lovenox. This note was generated with [employer] dictation software. It may contain incorrect words, spelling, and punctuation that were not noted in checking the note before signing. Code Visit OBSV E&M: 15109 Initial observation care L3
--- NOTE | 2019-03-11 12:42 | RAD_ITS ---
STUDY: X-RAY - LUMBAR SPINE REASON FOR EXAM: Female, 73 years old. Increasing low back pain TECHNIQUE: 3 view(s) of the lumbar spine were obtained. COMPARISON: None FINDINGS: Normal lumbar lordosis. There is no substantial scoliosis. There is a normal alignment of the vertebrae. Normal vertebral bodies and endplates. There is multi-level degenerative disc disease with multi-level disc space narrowing. There is no demonstrated fracture. The soft tissue structures are unremarkable. RAD/Lumbar Spine 2 or 3 Views IMPRESSION: Degenerative changes, no acute findings Electronically Signed: Dieudonne Combs MD at 15:06 EDT , Service support ,
--- NOTE | 2019-03-11 12:42 | US_ITS ---
STUDY: RENAL ULTRASOUND - COMPLETE REASON FOR EXAM: Female, 73 years old. Flank pain TECHNIQUE: Ultrasound evaluation of the kidneys was performed with real-time and static cruz-scale imaging. COMPARISON: CT dated 03/09/2019 FINDINGS: RIGHT KIDNEY: Normal location of the right kidney, which is normal in size. The right kidney measures 10.0 cm. There is a normal cortex of the right kidney. There is no right renal mass or cyst. There is a 3 mm nonobstructing right renal stone. There is no right hydronephrosis. DISTAL RIGHT URETER: There is non-visualization of the distal right ureter. There is no demonstrated right ureterovesical junction calculus. There is a visualized right ureteral jet. LEFT KIDNEY: Normal location of the left kidney, which is normal in size. The left kidney measures 11.3 cm. There is a normal cortex of the left kidney. There are multiple cysts in the left kidney with the largest measuring 3.9 x 2.9 cm. There are no left renal calculi. There is no left hydronephrosis. DISTAL LEFT URETER: There is non-visualization of the distal left ureter. There is no demonstrated left ureterovesical junction calculus. There is a visualized left ureteral jet. BLADDER: The urinary bladder is partially distended and appears unremarkable. US/Kidney and Bladder IMPRESSION: Subcentimeter stone in the right kidney. No left renal calculi. No hydronephrosis. Left renal cysts. Electronically Signed: Edgar Aj, at 16:10 EDT Tel , Service support ,
[2019-03-11] MEDS: 0.9% Normal Saline 1,000 ML 75 ML IV (13:00)
[2019-03-11] MEDS: Cefdinir 300 MG Capsule PO ×2 (13:19→22:05)
[2019-03-11] MEDS: Morphine 2 MG/ML Syringe 1 MG IV (20:13)
[2019-03-11] MEDS: Pantoprazole Sodium 40 MG Tablet PO (22:05)
[2019-03-11] MEDS: Benztropine 2 MG Tablet 1 MG PO (22:05)
[2019-03-11] MEDS: Timolol 0.5% 5ML OPTH.BTL 1 DRP OPHTHALMIC (22:07)
[2019-03-11] MEDS: BRIMONIDINE 0.2% 5ML BOTTLE 1 DRP EACH EYE (22:07)
[2019-03-11] MEDS: OLANZapine 2.5 MG Tablet 5 MG PO (22:08)
[2019-03-11] MEDS: Latanoprost 0.005% 1 Bottle 1 DRP EACH EYE (22:08)
[2019-03-11] MEDS: MELATONIN 10 MG TABLET 5 MG PO (22:09)
[2019-03-11] MEDS: Mirtazapine 15 MG Tablet PO (22:09)
[2019-03-12 02:21] VITALS: BP 115/54; PULSE 58; RESP 18; TEMP 36.6; O2SAT 95
[2019-03-12] MEDS: 0.9% Normal Saline 1,000 ML 75 ML IV (04:51)
[2019-03-12] MEDS: Levothyroxine 88 MCG Tablet PO (04:53)
[2019-03-12 06:13] LABS: Absolute Lymphocyte Count 1.18 X10^3/uL (0.83-4.51); Absolute Neutrophil Count 4.9 X10^3/uL (2.0-7.7); Basophil# 0.03 X10^3/uL; Basophil% 0.4 % (0-1); Eosinophil# 0.18 X10^3/uL; Eosinophils% 2.6 % (0-5); Hematocrit 39.4 % (37-47); Hemoglobin 13.2 g/dL (12.0-15.0); Lymphocyte # 1.18 X10^3/ul (4.0); Lymphocyte % 17.1 % (19-41); Mean Corp Hgb Conc 33.5 g/dL (32-36); Mean Corpuscular Hgb 31.5 pg (27.0-32.0); Mean Platelet Vol. 11.5 fl (6.2-12.0); Monocyte# 0.57 X10^3/uL; Monocyte% 8.3 % (0-10); NRBC Flagged by Analyzer 0 % (0-5); Neutrophil # 4.88 X10^3/uL (2.7-7.7); Neutrophil % 70.7 % (47-70); Platelet Count 176 K/mm3 (150-450); RBC Distribution Width CV 14.8 % (11.6-14.6); RBC Distribution Width SD 51.5 fl (35.1-43.9); Red Blood Count 4.19 M/mm3 (4.2-5.4); White Blood Count 6.9 K/mm3 (4.4-11.0)
[2019-03-12 06:34] LABS: Anion Gap 9 (5-15); BUN 15 mg/dL (7-18); Calcium,Total 8.2 mg/dL (8.5-10.1); Chloride 112 mmol/L (98-107); Creatinine, Serum 1.07 mg/dL (0.55-1.02); EST Glomerular Filtration Rate 54 mL/min (>60); Est Glom Filt Rate - Afr Amer 65 mL/min (>60); Estimated Creatinine Clearance 42.76 ml/min; Glucose 137 mg/dL (74-106); Potassium 4.1 mmol/L (3.5-5.1); Sodium Level 145 mmol/L (136-145)
[2019-03-12 07:17] VITALS: O2SAT 95
[2019-03-12] MEDS: Aspirin 81 MG TAB.CHEW PO (07:39)
[2019-03-12] MEDS: Morphine 2 MG/ML Syringe 1 MG IV (07:54)
[2019-03-12] MEDS: Acetaminophen 325 MG Tablet 650 MG PO (07:55)
[2019-03-12] MEDS: BRIMONIDINE 0.2% 5ML BOTTLE 1 DRP EACH EYE ×2 (08:00→22:07)
[2019-03-12] MEDS: Benztropine 2 MG Tablet 1 MG PO ×2 (08:01→22:00)
[2019-03-12] MEDS: Nystatin Powder 15gm Bottle 1 APPLIC TOPICAL ×2 (08:02→22:11)
[2019-03-12] MEDS: Enoxaparin 30 MG/0.3 ML Syringe SC (08:02)
[2019-03-12] MEDS: Pantoprazole Sodium 40 MG Tablet PO ×2 (08:03→22:01)
[2019-03-12] MEDS: Timolol 0.5% 5ML OPTH.BTL 1 DRP OPHTHALMIC ×2 (08:03→22:06)
[2019-03-12] MEDS: Cefdinir 300 MG Capsule PO ×2 (08:03→22:01)
[2019-03-12 08:21] VITALS: BP 137/72; PULSE 74; RESP 18; TEMP 36.6; O2SAT 96
--- NOTE | 2019-03-12 09:51 | CT_ITS ---
STUDY: CT LUMBAR SPINE WITHOUT CONTRAST REASON FOR EXAM: Female, 73 years old. PERSISTENT LBP RADIATION DOSAGE (If Supplied By Facility): CTDIvol = ( 18.50 ) mGy, DLP = ( 556.15 ) mGycm TECHNIQUE: The patient was scanned in a multi detector CT scanner. High resolution transaxial imaging was performed. Images were obtained from to . Sagittal and coronal images were reconstructed. Individualized dose optimization techniques were used for this CT. COMPARISON: November 08, 2017 and August 10, 2014 FINDINGS: Normal lumbar lordosis. There is no demonstrated fracture. There is multilevel endplate spondylosis of the lumbar vertebrae. There is multi-level degenerative disc disease with multi-level disc space narrowing. Again noted are the heterogeneous vertebral body with sclerotic and lytic regions, grossly unchanged since the prior examination in 2013 Normal visualized paraspinous soft tissue structures. CT/Spine Lumbar without Contrast IMPRESSION: No demonstrated fractures. Multilevel degenerative changes. Persistent heterogeneous vertebral bodies. Electronically Signed: Michael Lane MD at 10:51 EDT Tel , Service support ,
--- NOTE | 2019-03-12 09:52 | PN_ITS ---
Subjective: Chief complaint: Follow-up after admission for right flank/back pain and recent history of E. coli acute cystitis. Patient seen and examined. No acute events overnight. She is still complaining of back pain. Today, she mentioned that her pain is more down to the mid lower back. She is having difficult time to get up and ambulate. Yesterday, pain was more on the right flank. I tried to help patient to stand up with a physical therapist and she had very difficult time to move on the bed or stand up. Her vital signs are stable. - Physical Exam General: Alert, Oriented x3, Cooperative, No apparent distress HEENT: Atraumatic, PERRLA, EOMI, Normocephalic Oral: Moist Mucosa, No Gingival or Mucosal Lesions/ Ulcerations Neck: Supple, No JVD, Negative Carotid Bruits, Trachea Midline, Thyroid Normal Size and Texture Lungs: Clear to auscultation, Normal air movement, No rhonchi, No wheeze, No rales, Diminished Cardiovascular: Regular rate, Regular Rhythm, Normal S1, Normal S2, No murmurs Abdomen: Bowel Sounds Present, Soft, Non Tender, Non-Distended, No Hepato- splenomegaly Extremities: No clubbing, No cyanosis, No edema Skin: No rashes, No breakdown Lymphatic: No Cervical, Supraclavicular, or Inguinal Adenopathy Neurological: Cranial nerves II-XII grossly intact, Neuro grossly intact Psych/Mental Status: Normal Affect, Appropriate, Alert and oriented to time, place, person, mood and affect Vital Signs Temp Pulse Resp BP Pulse Ox 97.8 F 58 L 18 115/54 L 95 03/12/19 02:21 03/12/19 02:21 03/12/19 02:21 03/12/19 02:21 03/12/19 07:17 Oxygen Delivery Method Room Air Weight: 178 lb 6.4 oz Body Mass Index (BMI) 29.7 Intake and Output for Last 24 Hours 03/10/19 03/11/19 03/12/19 23:59 23:59 23:59 Intake Total 1402 / 1402 Output Total 600 / 600 600 / 600 Balance -600 / -600 802 / 802 Laboratory Tests Past 24 Hrs 03/12/19 03/12/19 05:36 05:36 WBC 6.9 RBC 4.19 L Hgb 13.2 Hct 39.4 MCV 94.0 MCH 31.5 MCHC 33.5 RDW Std Deviation 51.5 H RDW Coeff of [place] 14.8 H Plt Count 176 MPV 11.5 Immature Gran % (Auto) 0.900 Neut % (Auto) 70.7 H Lymph % (Auto) 17.1 L [place] % (Auto) 8.3 Eos % (Auto) 2.6 Baso % (Auto) 0.4 Absolute Neuts (auto) 4.9 Absolute Lymphs (auto) 1.18 Absolute Nucleated RBC 0.00 Nucleated RBC % 0 Sodium 145 Potassium 4.1 Chloride 112 H Carbon Dioxide 24.0 Anion Gap 9 BUN 15 Creatinine 1.07 H Estim Creat Clear Calc 42.76 Est GFR (MDRD) Af Amer 65 Est GFR (MDRD) Non-Af 54 L BUN/Creatinine Ratio 14.0 Glucose 137 H Calcium 8.2 L Clinical Impression(s) from Imaging Studies Lumbar Spine X-Ray 03/11/19 12:42 IMPRESSION: Degenerative changes, no acute findings Electronically Signed: Dieudonne Combs MD at 15:06 EDT , Service support , Renal Ultrasound 03/11/19 12:42 IMPRESSION: Subcentimeter stone in the right kidney. No left renal calculi. No hydronephrosis. Left renal cysts. Electronically Signed: Edgar Aj at 16:10 EDT Tel , Service support , Medical Necessity - Tobacco Use Smoking Status: Never smoker Assessment/Plan This is a 73 years old female patient presented to the emergency room because of right flank/back pain in context of recent diagnosis of acute cystitis, has been on antibiotics and she is being admitted for intractable pain for pain control as well as evaluation. #1 right flank/low back pain: X-ray of the lumbar spine showed degenerative changes, no acute findings. Ultrasound liver reviewed, findings noted and no acute findings. Today, patient is complaining of low back pain. Denied lower extremity numbness or tingling, no focal weakness. She had CT scan abdomen and pelvis without contrast done on March 09, 2019 and revealed no hydronephrosis, increased size of the left mid renal cystic lesion, stable right hepatic mass. Plan: CT scan lumbar spine without contrast, start Flexeril as needed, OxyIR as needed for pain, continue IV morphine, PT OT. #2 recent E. coli acute cystitis: Continue cefdinir to complete total 5 days. Urine culture that was done on March 09, 2019 revealed presumptive E. coli, it was sensitive to cephalosporins. #3 stage III chronic kidney disease: Baseline creatinine has been around 1.1 to 1.3 mg/dL. Today's creatinine is 1.07, stable at baseline. #4 hemangioma of the liver: Status post abandonment surgery because surgery complicated by injury of IVC. This was done back in [address] [facility] scan abdomen on March 09 revealed similar size right hepatic mass. Stable. #5 left kidney cyst/mass: Previously, it was presumed that this mass is due to cystic lesion. Ultrasound left kidney revealed multiple cysts of the left kidney with the largest measuring 3.9 x 2.9 cm, no kidney stones, no left hydronephrosis. #6 anxiety disorder: Continue Zyprexa, Remeron. #7 history of thyroid cancer/status post surgery/hypothyroidism: Continue levothyroxine. #8 DVT prophylaxis: Subcu Lovenox. This note was generated with [employer] dictation software. It may contain incorrect words, spelling, and punctuation that were not noted in checking the note before signing. Code Visit OBSV E&M: 39288 Subsequent observation care L2
--- NOTE | 2019-03-12 10:22 | CASEMGMT ---
Addendum entered by Dolly Louis 03/12/19 14:03: JONY met with pt to confirm discharge plans. Pt is alert and orientated x3, is [place]. SW introduced self and role at [facility]. Pt states she is feeling better and confirms she is from [facility] and the plan is to return once medically cleared. Plan: Return to [facility] once medically cleared Original Note: Social Work Note Pt is listed as being from [facility]. JONY faxed updated clinicals to [facility]. Dolly Louis BALLING MACHINE OPERATOR, MANAGER CHANGE
[2019-03-12 14:21] VITALS: BP 118/62; PULSE 59; RESP 18; TEMP 36.7; O2SAT 97
--- NOTE | 2019-03-12 14:24 | CASEMGMT ---
MEY ESPINO NOTE: Call received from [facility] Public Services Librarian: Santa Daly . - requested DC instructions be faxed to her on dc. Tommy MCCORMICK RN CM
[2019-03-12] MEDS: oxyCODONE 5 MG Tablet PO (18:49)
[2019-03-12 20:21] VITALS: BP 129/79; PULSE 67; RESP 16; TEMP 36.4; O2SAT 96
[2019-03-12] MEDS: MELATONIN 10 MG TABLET 5 MG PO (21:58)
[2019-03-12] MEDS: OLANZapine 2.5 MG Tablet 5 MG PO (22:01)
[2019-03-12] MEDS: Mirtazapine 15 MG Tablet PO (22:05)
[2019-03-12] MEDS: Latanoprost 0.005% 1 Bottle 1 DRP EACH EYE (22:07)
[2019-03-13 02:21] VITALS: BP 129/75; PULSE 53; RESP 16; TEMP 36.5; O2SAT 98
[2019-03-13] MEDS: Levothyroxine 88 MCG Tablet PO (06:36)
[2019-03-13] MEDS: Aspirin 81 MG TAB.CHEW PO (07:51)
[2019-03-13 08:03] VITALS: O2SAT 95
[2019-03-13 08:21] VITALS: BP 129/72; PULSE 57; RESP 18; TEMP 36.7; O2SAT 98
--- NOTE | 2019-03-13 09:09 | PCM.DC ---
You will use the following diet at home:: Regular Your food should be the consistency of: Regular Discharge Activity: Return to Normal Activity Weight Bearing Status: Weight bearing as tolerated Call your doctor if you observe: Fever of 101 or Higher, Shortness of breath, Dizziness, Fainting spells, Chest pain, Increased palpitations (irregular heartbeat), Uncontrolled pain Allergies/Adverse Reactions: Allergies Penicillins Allergy (Verified 03/11/19 07:32) Unknown Sulfa (Sulfonamide Antibiotics) Allergy (Verified 03/11/19 07:32) Unknown Medications to take at Discharge Aspirin [Aspirin, Baby] 81 mg PO DAILY@0800 03/09/19 Benztropine Mesylate 1 mg PO BID 03/09/19 Brimonidine Tartrate/Timolol [Combigan 0.2%-0.5% Eye Drops] 1 drp OP BID 03/09/19 Docusate Sodium [Dok] 100 mg PO BID PRN 03/09/19 Ergocalciferol (Vitamin D2) [Vitamin D2] 50,000 unit PO FR 03/09/19 Latanoprost 0.005% [Xalatan Opthalmic] 1 drp EACH EYE QHS 03/09/19 Levothyroxine [Synthroid] 88 mcg PO DAILY 03/09/19 Melatonin 5 mg PO QHS 03/09/19 Mirtazapine [Remeron] 15 mg PO QHS 03/09/19 Olanzapine [Zyprexa] 5 mg PO QHS 03/09/19 Pantoprazole Sodium [Protonix] 40 mg PO BID 03/09/19 Cefdinir 300 mg PO BID #14 cap 03/13/19 Hydrocodone/Acetaminophen [[place] 5-325 Tablet] 1 ea PO Q8H PRN PRN #10 tab 03/13/19 The following prescriptions were given: Hydrocodone/Acetaminophen [[place] 5-325 Tablet] 1 ea PO Q8H PRN PRN #10 tab PRN Reason: Pain Prescription Printed Primary Care Physician: Dann Muniz MD [Family Provider] - Please follow up with your Primary Care Physician in: 1 week. Test Results: Test results from this visit will be discussed in further detail at your follow-up appointment, if applicable.
[2019-03-13] MEDS: oxyCODONE 5 MG Tablet PO (09:15)
[2019-03-13] MEDS: Benztropine 2 MG Tablet 1 MG PO (09:16)
[2019-03-13] MEDS: BRIMONIDINE 0.2% 5ML BOTTLE 1 DRP EACH EYE (09:16)
[2019-03-13] MEDS: Nystatin Powder 15gm Bottle 1 APPLIC TOPICAL (09:17)
[2019-03-13] MEDS: Enoxaparin 30 MG/0.3 ML Syringe SC (09:17)
[2019-03-13] MEDS: Cefdinir 300 MG Capsule PO (09:18)
[2019-03-13] MEDS: Timolol 0.5% 5ML OPTH.BTL 1 DRP OPHTHALMIC (09:18)
[2019-03-13] MEDS: Pantoprazole Sodium 40 MG Tablet PO (09:18)
--- NOTE | 2019-03-13 11:06 | CASEMGMT ---
Social Work Note Pt is discharging back to [facility] today. RN updated this worker that pt is needing transportation back to [facility]. JONY placed a call to [facility] and spoke with MEY Wilhelm. JONY informed Melonie that pt is being discharged back to [facility] today and asked if [facility] is able to transport pt. Melonie states they don't do transportation. SW in to speak with pt. Pt states she has no one that is able to transport her. JONY informed pt that this worker can try to arrange transportation via wheelchair van but it is not guaranteed there will be any availability and pt will get a bill for transportation. Pt states understanding, is willing to pay for transportation. JONY placed a call to [facility] and arranged transportation via wheelchair van for 11:30am. Transportation form given to bag sewer to give to [facility] when they arrive. JONY faxed discharge instructions to MEY Wilhelm at [facility] and wrote on fax coversheet transportation time. JONY faxed discharge instructions to Santa Daly at [facility]. RN updated on transportation time who will update pt. Plan: Pt to discharge back to [facility] with [facility] transporting via wheelchair van at 11:30am. Dolly Louis WAIT STAFF, WICK AND BASE ASSEMBLER
--- NOTE | 2019-03-13 12:15 | CASEMGMT ---
MEY ESPINO NOTE: Call placed to [facility] Dredge Runner, Santa Daly. No answer. VM message left stating that pt has been discharged today. Discharge instructions faxed to Santa @ [phone]. Tommy MCCORMICK RN CM
--- NOTE | 2019-03-13 12:20 | DS.PCM_ITS ---
Discharge Date and Diagnosis Date of Admission: 03/11/19 Date of Discharge: 03/13/19 - Primary Discharge Diagnosis #1 intractable right flank/low back pain. #2 recent E. coli acute cystitis. - Secondary Discharge Diagnosis Chronic Problems (Last Reviewed 05/30/18 @ 13:54 by Megan Rai) Anxiety disorder (Chronic) Thyroid cancer (Chronic) Liver mass (Chronic) Left kidney mass (Chronic) Hemangioma of liver (Chronic) Hospital Course and Treatment Imaging Results: Clinical Impression(s) from Imaging Studies Lumbar Spine X-Ray 03/11/19 12:42 IMPRESSION: Degenerative changes, no acute findings Electronically Signed: Dieudonne Combs MD at 15:06 EDT , Service support , Renal Ultrasound 03/11/19 12:42 IMPRESSION: Subcentimeter stone in the right kidney. No left renal calculi. No hydronephrosis. Left renal cysts. Electronically Signed: Edgar Aj at 16:10 EDT Tel , Service support , Lumbar Spine CT 03/12/19 09:51 IMPRESSION: No demonstrated fractures. Multilevel degenerative changes. Persistent heterogeneous vertebral bodies. Electronically Signed: Michael Lane MD at 10:51 EDT Tel , Service support , Operations: None Procedures: None Summary of Care Provided: Patient seen and examined on the day of discharge and appeared to be stable to be discharged back to the assisted living. Her low back pain and right flank pain is getting better and she has been able to ambulate. All over, she feels better. Her vital signs are stable. The patient is a 73 year old F admitted because of intractable right flank/low back pain in context of recent diagnosis for acute cystitis that has been treated with cefdinir. Patient lives at the assisted living and she has not been able to ambulate because of the right flank/low back pain. She had lumbar spine x-ray that showed degenerative changes without evidence of acute fractures. Patient with a history of hemangioma of the liver as well as multiple left kidney cysts. During this hospital stay, ultrasound of both kidneys done and revealed 3 mm nonobstructing kidney stone on the right without right hydronephrosis, multiple cysts in the left kidney largest measuring 3.9 x 2.9 cm without evidence of kidney stones or left hydronephrosis. Her kidney function was stable. Patient was treated with IV morphine and OxyIR as needed. Initially, patient continued to complain of back pain and difficulty ambulating. CT scan lumbar spine done and revealed no evidence of acute fractures but it did show multilevel degenerative joint disease. On the day of discharge, patient reported improvement of her pain and she has been able to ambulate with walker. Her routine blood work was unremarkable. She was continued on cefdinir for recent E. coli acute cystitis. Patient discharged back to the assisted living in a stable medical condition, requested to complete cefdinir 3 more days of treatment as she received 4 days of treatment so far, discharged on [place] PRN for pain, continued on her previous home medication without any changes, recommended follow-up with PCP in 1 week. - Physical Exam General: Alert, Oriented x3, Cooperative, No apparent distress HEENT: Atraumatic, PERRLA, EOMI, Normocephalic Oral: Moist Mucosa, No Gingival or Mucosal Lesions/ Ulcerations Neck: Supple, No JVD, Negative Carotid Bruits, Trachea Midline, Thyroid Normal Size and Texture Lungs: Clear to auscultation, Normal air movement, No rhonchi, No wheeze, No rales Cardiovascular: Regular rate, Regular Rhythm, Normal S1, Normal S2, PMI Normal Abdomen: Bowel Sounds Present, Soft, Non Tender, Non-Distended, No Hepato- splenomegaly, Hernia Extremities: No clubbing, No cyanosis, No edema Skin: No rashes, No breakdown Lymphatic: No Cervical, Supraclavicular, or Inguinal Adenopathy Neurological: Cranial nerves II-XII grossly intact, Neuro grossly intact Psych/Mental Status: Normal Affect, Appropriate Vital Signs Temp Pulse Resp BP Pulse Ox 98.0 F 57 L 18 129/72 H 98 03/13/19 08:21 03/13/19 08:21 03/13/19 08:21 03/13/19 08:21 03/13/19 08:21 Oxygen Delivery Method Room Air Weight: 178 lb 6.4 oz Body Mass Index (BMI) 29.7 Intake and Output for Last 24 Hours 03/11/19 03/12/19 03/13/19 23:59 23:59 23:59 Intake Total 1622 / 1622 100 / 100 Output Total 600 / 600 1300 / 1300 Balance -600 / -600 322 / 322 100 / 100 Discharge Activity: Return to Normal Activity Weight Bearing Status: Weight bearing as tolerated Call your doctor if you observe: Fever of 101 or Higher, Shortness of breath, Dizziness, Fainting spells, Chest pain, Increased palpitations (irregular heartbeat), Uncontrolled pain Home Medications: Medications to take at Discharge Aspirin [Aspirin, Baby] 81 mg PO DAILY@0800 03/09/19 Benztropine Mesylate 1 mg PO BID 03/09/19 Brimonidine Tartrate/Timolol [Combigan 0.2%-0.5% Eye Drops] 1 drp OP BID 03/09/19 Docusate Sodium [Dok] 100 mg PO BID PRN 03/09/19 Ergocalciferol (Vitamin D2) [Vitamin D2] 50,000 unit PO FR 03/09/19 Latanoprost 0.005% [Xalatan Opthalmic] 1 drp EACH EYE QHS 03/09/19 Levothyroxine [Synthroid] 88 mcg PO DAILY 03/09/19 Melatonin 5 mg PO QHS 03/09/19 Mirtazapine [Remeron] 15 mg PO QHS 03/09/19 Olanzapine [Zyprexa] 5 mg PO QHS 03/09/19 Pantoprazole Sodium [Protonix] 40 mg PO BID 03/09/19 Cefdinir 300 mg PO BID #14 cap 03/13/19 Hydrocodone/Acetaminophen [[place] 5-325 Tablet] 1 ea PO Q8H PRN PRN #10 tab 03/13/19 Following Prescrptions Were Given to Patient: Hydrocodone/Acetaminophen [[place] 5-325 Tablet] 1 ea PO Q8H PRN PRN #10 tab PRN Reason: Pain Prescription Printed Primary Care Physician: Dann Muniz MD [Family Provider] - Please follow up with your Primary Care Physician in: 1 week. Disposition: Assisted facility Minutes spent on discharge:: 32 Patient Condition:: Stable Medical Necessity - Tobacco Use Smoking Status: Never smoker Meaningful Use Info Meaningful Use Diagnoses (Choose all that apply): None applicable Code Visit Inpatient E&M: 15381 Disch Hosp
== END 2019-03-13 11:50 | disposition home or self-care (01) | DRG 552 ==
LOC: ED 08:12 → MS3 10:45
PROVIDERS: Admitting Provider Hospitalist; Emergency Provider Emergency Medicine; Family Provider Family Medicine; PCP Family Medicine; Visit Provider Hospitalist
DX: M54.5 Low back pain (principal); N30.00 Acute cystitis without hematuria; D18.03 Hemangioma of intra-abdominal structures; E89.0 Postprocedural hypothyroidism; N18.3 Chronic kidney disease, stage 3 (moderate); N28.1 Cyst of kidney, acquired; B96.20 Unspecified Escherichia coli [E. coli] as the cause of diseases classified elsewhere; F41.9 Anxiety disorder, unspecified; N20.0 Calculus of kidney; Z85.850 Personal history of malignant neoplasm of thyroid
CPT/HCPCS: 36415; 72100; 72131; 74176; 76770; 80048; 81001; 85025; 87086; 87088; 87186; 97162; 97166; 97530; 99285; J7030; P9612; A4216; J2405

== ENCOUNTER 2020-07-26 14:52 | Inpatient (IN) | payer MEDICARE, MEDICAID, SELFPAY ==
[2019-03-11 13:00] VITALS: BMI 29.7
[2020-07-26] VITALS (14 sets, daily range): BP systolic 110–128; BP diastolic 43–89; PULSE 58–89; RESP 16–26; TEMP 36.2–37.1; O2SAT 93–99; BMI 26.9; BMI 25.9
--- NOTE | 2020-07-26 15:10 | ED.RN ---
Called Moon Malcolm, nurse reports that pt was tested just prior to , she thinks it was July 15.
--- NOTE | 2020-07-26 15:11 | EKG12_ITS ---
Test Reason : WEAKNESS Blood Pressure : / mmHG Vent. Rate : 089 BPM Atrial Rate : 089 BPM P-R Int : 140 ms QRS Dur : 096 ms QT Int : 368 ms P-R-T Axes : 030 -20 017 degrees QTc Int : 447 ms Normal sinus rhythm Left ventricular hypertrophy Nonspecific ST and T wave abnormality Abnormal ECG Confirmed by ABDULAZIZ COHEN, MYLES ([id number]), photo editor REGAN BARKLEY ([id number]) on 07/28/2020 8:45:05 AM Referred By: SILVINA Confirmed By:MYLES CINTRON MD
--- NOTE | 2020-07-26 15:12 | ED.DCSUM_ITS ---
- ER Visit Summary Date of Service: 07/26/20 Chief Complaint: [Generalized weakness] History of Present Illness: The patient is a 75 F [presents to the emergency department via EMS from assisted living facility. Patient apparently tested positive for Covid but it is unclear when at this time. Patient is not a very good historian. Apparently patient has had decreased p.o. intake over the last 5 days and she is more lethargic than usual. Patient complains of nausea. She complains of shortness of breath with activity. Patient denies any fevers. She denies significant cough. She denies vomiting or diarrhea. She denies abdominal pain. Patient has history of anxiety and remote history of thyroid cancer.] Patient was diagnosed with COVID-19 on July 15. Physical Examination: [HEENT-PERRLA, EOMI. Cranial nerves II through XII grossly intact. TMs clear. Mucous membranes moist. No adenopathy. Cardiovascular-regular rate and rhythm without murmur or ectopy Lungs-clear to auscultation, chest wall stable without crepitus or subcu emphysema Abdomen-normoactive bowel sounds, soft, nontender, no rebound or rigidity, no peritoneal signs. Extremities-intact ?4, normal range of motion, normal pulses, atraumatic] Test Results: [EKG obtained arrival shows sinus rhythm with a ventricular rate of 89 bpm with left ventricular hypertrophy noted. CBC with differential showing a 10.2, hemoglobin 15, hematocrit 48, placed 378. Chemistries unrem arkable. BUN was 43 and creatinine 1.39. LFTs and lipase were normal troponin was less than 0.015. Lactate was 2.4. Urinalysis was positive for 100 excite esterase as well as nitrites. Patient had 50 ketones. She had +4 bacteria and 0-5 WBCs. Chest x-ray obtained showed bibasilar atelectasis.] Emergency Department Course and Treatment: [IV line established on arrival. Patient was given normal saline. Patient was started Rocephin 1 g IV. Urine culture was sent for analysis.] Treatment Plan: [Admit] Disposition: [Admit] Impression: [UTI Acute kidney injury Dehydration COVID-19] This note was generated with [employer] software. It may contain incorrect words, spelling, and punctuation that were not noted in review of the chart prior to signing ED Disposition - Plan for ED Patient: Referrals: Dann Muniz MD [Primary Care Provider] -
--- NOTE | 2020-07-26 15:30 | RAD_ITS ---
STUDY: X-RAY CHEST REASON FOR EXAM: Female, 75 years old. DYSPNEA TECHNIQUE: Single AP portable view of the chest. COMPARISON: 11/16/2010 FINDINGS: EKG leads project over the chest. Linear densities in lateral left lung base with minimal reticulation in the right lung base. There is no demonstrated pleural abnormality. Normal size heart. Normal mediastinum and lele. Normal visualized pulmonary arteries. Normal visualized aortic arch and descending thoracic aorta. Normal visualized thoracic spine. Normal visualized ribs, clavicles, and shoulders. There is no demonstrated abnormality of the visualized soft tissue structures of the upper abdomen. RAD/Chest 1 View (Portable) IMPRESSION: Bibasilar atelectasis. Electronically Signed: Julián Buckner MD (Brooks) at 15:51 EST , Service support ,
[2020-07-26 15:35] LABS: POSITIVE MORPHOLOGY YES
[2020-07-26 15:37] LABS: Absolute Lymphocyte Count 1.61 X10^3/uL (0.83-4.51); Absolute Neutrophil Count 7.4 X10^3/uL (2.0-7.7); Basophil# 0.04 X10^3/uL; Basophil% 0.4 % (0-1); Eosinophil# 0.26 X10^3/uL; Eosinophils% 2.6 % (0-5); Hematocrit 47.7 % (37-47); Hemoglobin 15.3 g/dL (12.0-15.0); Lymphocyte # 1.61 X10^3/ul (4.0); Lymphocyte % 15.8 % (19-41); Mean Corp Hgb Conc 32.1 g/dL (32-36); Mean Corpuscular Hgb 29.5 pg (27.0-32.0); Mean Corpuscular Volume 91.9 fL (81-99); Mean Platelet Vol. 11.6 fl (6.2-12.0); Monocyte# 0.67 X10^3/uL; Monocyte% 6.6 % (0-10); NRBC Flagged by Analyzer 0 % (0-5); Neutrophil # 7.44 X10^3/uL (2.7-7.7); Neutrophil % 73.2 % (47-70); Platelet Count 378 K/mm3 (150-450); RBC Distribution Width CV 15.4 % (11.6-14.6); RBC Distribution Width SD 52.2 fl (35.1-43.9); Red Blood Count 5.19 M/mm3 (4.2-5.4); White Blood Count 10.2 K/mm3 (4.4-11.0)
[2020-07-26 15:54] LABS: Differential Indicated SCAN CRITERIA MET
[2020-07-26] MEDS: 0.9% Normal Saline 1,000 ML 150 ML IV ×2 (16:09→18:30)
[2020-07-26 16:15] LABS: Red Blood Cells-Urine 0 SEEN /hpf (0-5)
[2020-07-26 16:15] LABS: ALB/GLOB Ratio 0.7 RATIO (0.9-2.4); AST(SGOT) 13 U/L (15-37); Alanine Aminotransfer ALT/SGPT 29 U/L (13-56); Albumin, Serum 3.5 g/dL (3.2-5.0); Alkaline Phosphatase 70 U/L (45-117); Anion Gap 11 (5-15); BUN 43 mg/dL (7-18); BUN/Creat Ratio 30.9 RATIO (10-20); Calcium,Total 9.3 mg/dL (8.5-10.1); Chloride 112 mmol/L (98-107); Creatinine, Serum 1.39 mg/dL (0.55-1.02); EST Glomerular Filtration Rate 39 mL/min (>60); Est Glom Filt Rate - Afr Amer 48 mL/min (>60); Estimated Creatinine Clearance 33.24 ml/min; Glucose 158 mg/dL (74-106); Lipase 106 U/L (73-393); Potassium 3.7 mmol/L (3.5-5.1); Protein, Total 8.5 g/dL (6.4-8.2); Sodium Level 144 mmol/L (136-145)
[2020-07-26 16:20] LABS: Lactic Acid 2.4 mmol/L (0.4-1.9)
[2020-07-26 16:20] LABS: Color, Urine Yellow (Yellow); Glucose, Dipstick Normal (Normal); Ketone-Dipstick 50 mg/dl (Negative); Leukocyte Esterase-Dipstick 100 /ul (Negative); Nitrite-Dipstick Positive (Negative); Occult Blood-Urine 10 /ul (Negative); Protein-Dipstick 30 mg/dl (Negative); Urine Bilirubin Dipstick Negative (Negative); Urine Clarity Sl. Cloudy (Clear); Urine Urobilinogen 1 mg/dl (Normal)
[2020-07-26 16:26] LABS: Bacteria 4+ /hpf (None Seen); Mucous, Urine 1+ /hpf (<or=2+); Renal Epithelial Cells 0-5 SEEN /hpf (0-5); Squamous Epithelial Cells - UA 0-5 SEEN /hpf (5-10)
[2020-07-26 16:27] LABS: Hyaline Cast 0-5 SEEN /lpf (0-5)
[2020-07-26 16:28] LABS: White Blood Cells 0-5 SEEN /hpf (0-5)
[2020-07-26 16:33] LABS: Differential Comment SCANNED
[2020-07-26] MEDS: Ondansetron 4 MG/2 ML Vial IV (16:34)
[2020-07-26] MEDS: Ceftriaxone 1 GM/50 ML BAG IV (16:43)
--- NOTE | 2020-07-26 16:52 | PCM.HP.STD ---
Problem List (1) COVID-19 virus infection Status: Acute (2) Anxiety disorder Status: Chronic (3) Thyroid cancer Status: Chronic (4) Liver mass Status: Chronic (5) Left kidney mass Status: Chronic (6) Hemangioma of liver Status: Chronic (7) Dementia Status: Chronic History of Present Illness Date of Admission: 07/26/20 Chief Complaint: Lethargic and weak, poor oral intake for 5 days The patient is a 75 year old F with multiple comorbidities as listed above along with physical debility was sent from [facility] [place] from [facility] for lethargic, weak and little fluid intake for last 5 days. As per correction report, she was tested positive for July 15. Exact symptomatology is unclear as patient has poor comprehension, disoriented and seems she has chronic cognitive deficit or dementia. History is mainly taken from ER physician, correction documentation and correction report from ER physician/nursing staff. Patient has mild shortness of breath as per nursing staff. Not clear about cough. Very little oral intake. Patient has chronic constipation. ED triage vitals shows blood pressure 114/89, temperature 97.5, pulse ox 98% on room air and RR 22/min Patient does not look short of breath objectively. EKG normal sinus rhythm with LVH, LAD, QRS 96 ms, QTC 447 ms. No significant change from previous EKG of November 2019 except sinus bradycardia at 58 bpm. Chest x-ray shows mainly bibasilar atelectasis. Basic labs done in the ER shows lactic acid 2.4, BUN/creatinine 43/1.39, glucose 158. H&H 15.3/47.7. No leukocytosis. UA positive of nitrite and LE 100 with 4+ bacteria. Past Medical History Past Medical History (Chronic Problems): Chronic Problems (Last Reviewed 05/30/18 @ 13:54 by Megan Rai) Dementia (Chronic) Anxiety disorder (Chronic) Thyroid cancer (Chronic) Liver mass (Chronic) Left kidney mass (Chronic) Hemangioma of liver (Chronic) Medical History: Medical History (Last Reviewed 05/30/18 @ 13:54 by Megan Rai) Anxiety disorder F41.9 Knee contusion S80.00XA Thyroid cancer C73 removed eye lens bilateral 2001 Allergies Penicillins Allergy (Verified 07/26/20 16:12) Unknown Sulfa (Sulfonamide Antibiotics) Allergy (Verified 07/26/20 16:12) Unknown Home Medications: Ambulatory Orders Medication Instructions Recorded Aspirin [Aspirin, Baby] 81 mg PO DAILY@0800 03/09/19 Benztropine Mesylate 1 mg PO BID 03/09/19 Brimonidine Tartrate/Timolol 1 drp OP BID 03/09/19 [Combigan 0.2%-0.5% Eye Drops] Docusate Sodium [Dok] 100 mg PO BID PRN 03/09/19 Ergocalciferol (Vitamin D2) 50,000 unit PO FR 03/09/19 [Vitamin D2] Latanoprost 0.005% [Xalatan 1 drp EACH EYE QHS 03/09/19 Opthalmic] Levothyroxine [Synthroid] 100 mcg PO DAILY 03/09/19 Mirtazapine [Remeron] 15 mg PO QHS 03/09/19 Olanzapine [Zyprexa] 2.5 mg PO QHS 03/09/19 Pantoprazole Sodium [Protonix] 40 mg PO BID 03/09/19 Hydrocodone/Acetaminophen [[place] 1 ea PO Q8H PRN PRN #10 tab 03/13/19 5-325 Tablet] Gabapentin [Neurontin] 100 mg PO QHS 07/26/20 Metformin HCl 500 mg PO DAILY 07/26/20 Surgical History: Surgical History (Last Reviewed 05/30/18 @ 13:54 by Megan Rai) History of hysterectomy Z90.710 1961 History of thyroidectomy E89.0 Surgical History: - - History of abandoned right hepatectomy for right hemangioma, complicated by injury to IVC. 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 Confused and disoriented VTE Information - Inpt Only VTE Present on Admission: No VTE Mechan Device Prophylaxis: None VTE Pharm Prophylaxis ordered?: Yes Patient Problems: Active and Suspected Problems (Last Reviewed 10/10/18 @ 13:54 by Megan Rai) COVID-19 virus infection (Acute) - Physical Exam Vitals/I&O's: Vital Signs Temp Pulse Resp BP Pulse Ox 98.6 F 74 26 H 128/75 H 97 07/26/20 16:45 07/26/20 16:45 07/26/20 16:45 07/26/20 16:45 07/26/20 16:45 Oxygen Delivery Method Room Air Weight: 166 lb 14.239 oz Body Mass Index (BMI) 26.9 General: Confused, Disoriented, Lethargic, - - Unclear whether she has chronically dementia or recent confusion or disorientation. HEENT: Atraumatic, PERRLA, EOMI, Normocephalic Oral: Dry Mucosa Neck: Supple, No JVD, Negative Carotid Bruits Lungs: No rhonchi, No wheeze, No rales, Diminished - Air entry is diminished in bilateral lung bases Cardiovascular: Regular rate, Regular Rhythm, Normal S1, Normal S2, No murmurs Abdomen: Bowel Sounds Present, Soft, Non Tender, Non-Distended Extremities: Capillary Refill Less than 3 Seconds Skin: No breakdown, Rash Present - Erythematous, wet macerated rash present over bilateral groin and lower abdominal fold of his skin suggestive of intertrigo Musculoskeletal: No Tenderness to Palpation of Joints or Extremities, Arthritic Changes Neurological: Cranial nerves II-XII grossly intact, Deep Tendon Reflexes 2+/4 and Symmetrical, Neuro grossly intact Psych/Mental Status: Depressed Laboratory Results 07/26/20 15:10: WBC 10.2, RBC 5.19, Hgb 15.3 H, Hct 47.7 H, MCV 91.9, MCH 29.5, MCHC 32.1, RDW Std Deviation 52.2 H, RDW Coeff of [place] 15.4 H, Plt Count 378, MPV 11.6, Immature Gran % (Auto) 1.400 H, Neut % (Auto) 73.2 H, Lymph % (Auto) 15.8 L, [place] % (Auto) 6.6, Eos % (Auto) 2.6, Baso % (Auto) 0.4, Absolute Neuts (auto) 7.4, Absolute Lymphs (auto) 1.61, Nucleated RBC % 0, Differential Comment SCANNED 07/26/20 15:10: Sodium 144, Potassium 3.7, Chloride 112 H, Carbon Dioxide 21.0, Anion Gap 11, BUN 43 H, Creatinine 1.39 H, Estim Creat Clear Calc 33.24, Est GFR (MDRD) Af Amer 48 L, Est GFR (MDRD) Non-Af 39 L, BUN/Creatinine Ratio 30.9 H, Glucose 158 H, Calcium 9.3, Total Bilirubin 0.90, AST 13 L, ALT 29, Alkaline Phosphatase 70, Troponin I < 0.015, Total Protein 8.5 H, Albumin 3.5, Globulin 5.0 H, Albumin/Globulin Ratio 0.7 L, Lipase 106 07/26/20 15:10: Lactic Acid 2.4 H* 07/26/20 16:00: Urine Color Yellow, Urine Clarity Sl. Cloudy, Urine pH 5.0, Ur Specific [place] 1.020, Urine Protein 30 H, Urine Glucose (UA) Normal, Urine Ketones 50 H, Urine Occult Blood 10 H, Urine Nitrite Positive H, Urine Bilirubin Negative, Urine Urobilinogen 1 H, Ur Leukocyte Esterase 100 H, Urine RBC 0 SEEN, Urine WBC 0-5 SEEN, Ur Squamous Epith Cells 0-5 SEEN, Ur Renal Epithelial Cell 0-5 SEEN, Urine Bacteria 4+, Hyaline Casts 0-5 SEEN, Urine Mucus 1+ Current Medications Sodium Chloride () 1,000 mls @ 150 mls/hr IV .Q6H40M PIEDAD Last Admin: 07/26/20 16:09 Dose: 150 mls/hr Documented by: Ceftriaxone Sodium (Rocephin) 1 gm in 50 mls @ 100 mls/hr IV X1 ONE Stop: 07/26/20 16:55 Last Admin: 07/26/20 16:43 Dose: 100 mls/hr Documented by: Assessment/Plan All Active Problems (Last Reviewed 05/30/18 @ 13:54 by Megan Rai) COVID-19 virus infection (Acute) The patient is a 75 year old F with multiple comorbidities as listed above along with physical debility was sent from [facility] [place] from [facility] for lethargic, weak and little fluid intake for last 5 days. As per correction report, she was tested positive for July 15. EKG normal sinus rhythm with LVH, LAD, QRS 96 ms, QTC 447 ms. No significant change from previous EKG of November 2019 except sinus bradycardia at 58 bpm. Chest x-ray shows mainly bibasilar atelectasis. Basic labs done in the ER shows lactic acid 2.4, BUN/creatinine 43/1.39, glucose 158. H&H 15.3/47.7. No leukocytosis. UA positive of nitrite and LE 100 with 4+ bacteria. 1. Acute COVID-19 infection with lactic acidosis probably from hypovolemia/volume contraction: Exact onset of symptoms are unclear because patient cannot give history. She tested positive for COVID-19, exact test not known on July 15 but as per correction her symptoms are for last 5 days. Discussed with ID. IV remdesivir ordered. IV fluid normal 750 mill per hour as she has lactic acidosis and mild hemoconcentration. IV Decadron 6 mg daily. Oxygen therapy to keep pulse ox more than 94%. SARS-CoV-2 antigen rapid negative. Respiratory panel is ordered. COVID-19 rapid antigen is negative. COVID-19 PCR ordered. 2. Bibasilar atelectasis: Incentive spirometry and chest pep and bronchopulmonary hygiene. 3. Acute kidney injury, prerenal possible ATN from infection on CKD stage III: Patient baseline BUN/creatinine was 1.07 in February 2019. Current BUN/creatinine 43/1.39. Monitor intake and output. If kidney function does not improve will need urine lites and ultrasound kidneys. 4. Possible UTI/asymptomatic bacteriuria: UA is positive of nitrite, LE and bacteria. Empirically on IV ceftriaxone. Urine culture is ordered. Urine culture in February 2019 shows E. coli more than 100,000, sensitive to ceftriaxone. 5. Hemangioma of the liver: Surgery was amendment because of complicated injury of IVC in [address] [facility] scan abdomen on October 2017 reported similar liver mass. 6. Left kidney cyst/mass Ultrasound left kidney revealed multiple cysts of the left kidney in February 2019 with the largest measuring 3.9 x 2.9 cm, no hydronephrosis. Subcentimeter, 3 mm nonobstructing stone in the right kidney. 7. Possible acute encephalopathy from infection/metabolic encephalopathy with baseline anxiety disorder with possible dementia: Hold Remeron and Zyprexa until patient is more alert and awake. 8. History of thyroid cancer/status post surgery/hypothyroidism: Continue levothyroxine. 9. Bilateral intertrigo DVT prophylaxis: Lovenox 30 mg subcu twice daily with adjusted creatinine clearance 33 mL/min Clinical Impression(s) from Imaging Studies Chest X-Ray 07/26/20 15:30 IMPRESSION: Bibasilar atelectasis. Advanced directive/living will: [facility] document he states patient is full code. Needs further discussion with the family regarding advanced directive/living will or from the patient herself when she is more comprehensive and oriented. Inpatient E&M: [id number] Init Hosp L3
--- NOTE | 2020-07-26 18:42 | EKG12_ITS ---
Test Reason : DYSRHYTHMIA Blood Pressure : / mmHG Vent. Rate : 058 BPM Atrial Rate : 058 BPM P-R Int : 136 ms QRS Dur : 098 ms QT Int : 484 ms P-R-T Axes : 053 007 040 degrees QTc Int : 475 ms Sinus bradycardia Otherwise normal ECG Confirmed by ABDULAZIZ COHEN, MYLES ([id number]), editorial project manager REGAN BARKLEY ([id number]) on 07/29/2020 1:26:57 PM Referred By: ATILIO Confirmed By:MYLES CINTRON MD
[2020-07-26 19:27] LABS: BNP,B-Type NATRIURETIC PEPTIDE 27.9 pg/mL (0-100)
[2020-07-26 19:29] LABS: Alkaline Phosphatase 71 U/L (45-117); CPK Total, Creatine Kinase 54 U/L (26-192); LDH 316 U/L (84-246)
[2020-07-26 19:30] LABS: Reflex Lactate? Y
[2020-07-26 19:35] LABS: Procalcitonin 0.06 ng/mL (0.00-0.09)
[2020-07-26 20:39] LABS: International Normalized Ratio 1.2; Prothrombin Time (Protime)PT. 14.2 SECONDS (11.7-14.9)
[2020-07-26 21:03] LABS: Fibrinogen 434 mg/dl (203-444)
[2020-07-26 21:13] LABS: Lactic Acid 1.2 mmol/L (0.4-1.9)
[2020-07-26 21:14] LABS: D-Dimer Quantitative (DVT/PE) 3.38 FEU/ug/m (0.27-0.49)
[2020-07-26] MEDS: dexAMETHasone 10 MG/ML Vial 6 MG IV (21:25)
[2020-07-26] MEDS: Enoxaparin 30 MG/0.3 ML Syringe SC (21:27)
[2020-07-26] MEDS: Nystatin Ointment 1 APPLIC TOPICAL (21:29)
[2020-07-26] MEDS: Gabapentin 100 MG Capsule PO (21:30)
[2020-07-26] MEDS: BRIMONIDINE 0.2% 5ML BOTTLE 1 DRP EACH EYE (21:32)
[2020-07-26] MEDS: Timolol 0.5% 5ML OPTH.BTL 1 DRP EACH EYE (21:34)
[2020-07-26] MEDS: Latanoprost 0.005% 1 Bottle 1 DRP EACH EYE (21:35)
--- NOTE | 2020-07-26 22:28 | CT_ITS ---
STUDY: CTA CHEST REASON FOR EXAM: Female, 75 years old. WEAKNESS,ELEVATED DDIMER, + COVID 07-15-20 -- HX:DEMENTIA,THYROID CANCER WITH THYROIDECTOMY,LIVER HEMANGIOMA RADIATION DOSAGE (If Supplied By Facility): CTDIvol = ( 13.62 ) mGy, DLP = ( 455.78 ) mGycm TECHNIQUE: The examination was performed with the intravenous administration of IV 100mL Isovue-370. Post-processing of the angiographic images was performed, with multiplanar reformation and 3D reconstruction. Individualized dose optimization techniques were used for this CT. COMPARISON: Chest x-ray 07/26/2020. CT scan abdomen and pelvis 03/09/2019 and 11/08/2017.. FINDINGS: Normal enhancement of the main pulmonary artery and right and left pulmonary arteries. Normal enhancement of the bilateral peripheral pulmonary arteries. There is no demonstrated pulmonary embolism. There is mild emphysematous chronic calcification of the aortic arch. Otherwise normal thoracic aorta and visualized great vessels. There is no demonstrated aortic dissection. Normal heart and pericardium. There are coronary artery calcifications. The visualized mediastinal lymph nodes are normal in size and morphology.. Normal hilar regions. Normal visualized trachea and bronchi. There is mild atelectasis in the posterior lungs and lung bases. Small infiltrates in these regions may also be present.. There are patchy groundglass opacities, which are predominantly seen in the peripheral left upper lobe and superior segment of the left lower lobe.. There is an emphysematous bulla in the right lower lobe. Normal pleura. Normal chest wall structures. There are multilevel degenerative changes of thoracic spine. There is generalized osteoporosis. There is no evidence for acute pathology in the visualized upper abdomen. There has been a previous cholecystectomy. There is a space-occupying lesion in the posterior right lobe of the liver, which was more clearly seen on previous contrast-enhanced abdominal CT scan. CT/CTA Chest W/WO Contrast IMPRESSION: Normal CTA chest examination, without a demonstrated pulmonary embolism, aortic aneurysm, or aortic dissection. Small patchy and less opacities, which are likely represent COVID-19 pneumonia. Atelectasis and/or small infiltrates in the posterior lung bases. Atherosclerosis. Electronically Signed: Raj Miramontes MD at 0:58 EST , Service support ,
[2020-07-27] VITALS (9 sets, daily range): BP systolic 108–117; BP diastolic 60–67; PULSE 53–73; RESP 16–24; TEMP 36.4–36.9; O2SAT 92–95
[2020-07-27] MEDS: 0.9% Saline Lock 10 ML Syringe IV (00:23)
[2020-07-27] MEDS: 0.9% Normal Saline 1,000 ML 150 ML IV (03:56)
[2020-07-27 06:02] LABS: Absolute Lymphocyte Count 0.73 X10^3/uL (0.83-4.51); Basophil# 0.02 X10^3/uL; Basophil% 0.3 % (0-1); Eosinophil# 0.02 X10^3/uL; Eosinophils% 0.3 % (0-5); Hematocrit 40.8 % (37-47); Hemoglobin 13.2 g/dL (12.0-15.0); Lymphocyte # 0.73 X10^3/ul (4.0); Lymphocyte % 10.3 % (19-41); Mean Corp Hgb Conc 32.4 g/dL (32-36); Mean Corpuscular Hgb 30.1 pg (27.0-32.0); Mean Corpuscular Volume 92.9 fL (81-99); Mean Platelet Vol. 11.3 fl (6.2-12.0); Monocyte# 0.14 X10^3/uL; NRBC Flagged by Analyzer 0 % (0-5); Neutrophil # 6.03 X10^3/uL (2.7-7.7); Neutrophil % 85.1 % (47-70); Platelet Count 265 K/mm3 (150-450); RBC Distribution Width CV 15.4 % (11.6-14.6); RBC Distribution Width SD 53.1 fl (35.1-43.9); Red Blood Count 4.39 M/mm3 (4.2-5.4); White Blood Count 7.1 K/mm3 (4.4-11.0)
[2020-07-27 06:36] LABS: ALB/GLOB Ratio 0.7 RATIO (0.9-2.4); AST(SGOT) 13 U/L (15-37); Alanine Aminotransfer ALT/SGPT 28 U/L (13-56); Albumin, Serum 2.8 g/dL (3.2-5.0); Alkaline Phosphatase 59 U/L (45-117); Anion Gap 7 (5-15); BUN 31 mg/dL (7-18); BUN/Creat Ratio 33.6 RATIO (10-20); Calcium,Total 7.8 mg/dL (8.5-10.1); Chloride 116 mmol/L (98-107); Creatinine, Serum 0.92 mg/dL (0.55-1.02); EST Glomerular Filtration Rate 63 mL/min (>60); Est Glom Filt Rate - Afr Amer 77 mL/min (>60); Estimated Creatinine Clearance 50.22 ml/min; Globulin 4.1 g/dL (2.2-4.2); Glucose 181 mg/dL (74-106); Magnesium 2.1 mg/dL (1.6-2.6); Potassium 4.1 mmol/L (3.5-5.1); Protein, Total 6.9 g/dL (6.4-8.2); Sodium Level 141 mmol/L (136-145)
[2020-07-27] MEDS: Ceftriaxone 1 GM/50 ML BAG IV (09:19)
[2020-07-27] MEDS: Enoxaparin 30 MG/0.3 ML Syringe SC ×2 (09:21→20:35)
[2020-07-27] MEDS: dexAMETHasone 10 MG/ML Vial 6 MG IV (09:21)
[2020-07-27] MEDS: Levothyroxine 100 MCG Tablet PO (09:22)
[2020-07-27] MEDS: Aspirin 81 MG TAB.CHEW PO (09:22)
[2020-07-27] MEDS: Pantoprazole Sodium 40 MG Tablet PO (09:22)
[2020-07-27] MEDS: Nystatin Ointment 1 APPLIC TOPICAL ×2 (09:23→20:37)
[2020-07-27] MEDS: BRIMONIDINE 0.2% 5ML BOTTLE 1 DRP EACH EYE ×2 (09:23→20:36)
[2020-07-27] MEDS: Timolol 0.5% 5ML OPTH.BTL 1 DRP EACH EYE ×2 (09:25→20:37)
--- NOTE | 2020-07-27 09:49 | PN_ITS ---
Patient Problems: Active and Suspected Problems (Last Reviewed 05/30/18 @ 13:54 by Megan Rai) COVID-19 virus infection (Acute) Subjective: Chief complaint: Follow-up after admission for acute COVID-19 pneumonia. Patient seen and examined. No acute events overnight. This morning, patient is alert, denies any complaints. No shortness of breath, no cough or sputum production. She denied fever. She is afebrile, blood pressure and heart rate are stable, pulse ox is 94% on room air. - Physical Exam Vitals/I&O's: Vital Signs Temp Pulse Resp BP Pulse Ox 98.4 F 62 18 117/63 94 07/27/20 08:40 07/27/20 08:40 07/27/20 08:40 07/27/20 08:40 07/27/20 08:40 Oxygen Delivery Method Room Air Weight: 160 lb 14.239 oz Body Mass Index (BMI) 25.9 Intake and Output for Last 24 Hours 07/25/20 07/26/20 07/27/20 23:59 23:59 23:59 Intake Total 1460 / 1460 677.5 / 677.5 Balance 1460 / 1460 677.5 / 677.5 General: Alert, Cooperative, No apparent distress, Well developed, - - Hand tremors. HEENT: Atraumatic, PERRLA, EOMI, Normocephalic Oral: Moist Mucosa, No Gingival or Mucosal Lesions/ Ulcerations Neck: Supple, No JVD, Negative Carotid Bruits, Trachea Midline, Thyroid Normal Size and Texture Lungs: No rhonchi, No wheeze, No rales, Diminished, - - Decreased breath sounds bilateral, otherwise clear. Cardiovascular: Regular rate, Regular Rhythm, Normal S1, Normal S2, PMI Normal Abdomen: Bowel Sounds Present, Soft, Non Tender, Non-Distended, No Hepato- splenomegaly Extremities: No clubbing, No cyanosis, No edema Skin: No rashes, No breakdown Lymphatic: No Cervical, Supraclavicular, or Inguinal Adenopathy Neurological: Cranial nerves II-XII grossly intact, Neuro grossly intact Psych/Mental Status: Normal Affect, Appropriate Microbiology Past 72 Hours 07/26/20 21:35 Mucosa - Nose Respiratory Panel (PCR) - Final 07/26/20 16:00 Urine, Clean Catch Legionella Antigen - Final 07/26/20 16:00 Urine, Clean Catch Streptococcus pneumoniae Antigen (M - Final 07/26/20 16:45 Mucosa - Nose SARS-CoV-2 Antigen (Rapid) - Final Laboratory Results 07/26/20 15:10: WBC 10.2, RBC 5.19, Hgb 15.3 H, Hct 47.7 H, MCV 91.9, MCH 29.5, MCHC 32.1, RDW Std Deviation 52.2 H, RDW Coeff of [place] 15.4 H, Plt Count 378, MPV 11.6, Immature Gran % (Auto) 1.400 H, Neut % (Auto) 73.2 H, Lymph % (Auto) 15.8 L, [place] % (Auto) 6.6, Eos % (Auto) 2.6, Baso % (Auto) 0.4, Absolute Neuts (auto) 7.4, Absolute Lymphs (auto) 1.61, Nucleated RBC % 0, Differential Comment SCANNED 07/26/20 15:10: Sodium 144, Potassium 3.7, Chloride 112 H, Carbon Dioxide 21.0, Anion Gap 11, BUN 43 H, Creatinine 1.39 H, Estim Creat Clear Calc 33.24, Est GFR (MDRD) Af Amer 48 L, Est GFR (MDRD) Non-Af 39 L, BUN/Creatinine Ratio 30.9 H, Glucose 158 H, Calcium 9.3, Total Bilirubin 0.90, AST 13 L, ALT 29, Alkaline Phosphatase 70, Troponin I < 0.015, Total Protein 8.5 H, Albumin 3.5, Globulin 5.0 H, Albumin/Globulin Ratio 0.7 L, Lipase 106 07/26/20 15:10: Lactic Acid 2.4 H* 07/26/20 15:10: Alkaline Phosphatase 71, Lactate Dehydrogenase 316 H, Total Creatine Kinase 54, C-React Prot Ext Range 62.70 H 07/26/20 15:10: B-Natriuretic Peptide 27.9 07/26/20 15:10: Procalcitonin 0.06 07/26/20 16:00: Urine Color Yellow, Urine Clarity Sl. Cloudy, Urine pH 5.0, Ur Specific [place] 1.020, Urine Protein 30 H, Urine Glucose (UA) Normal, Urine Ketones 50 H, Urine Occult Blood 10 H, Urine Nitrite Positive H, Urine Bilirubin Negative, Urine Urobilinogen 1 H, Ur Leukocyte Esterase 100 H, Urine RBC 0 SEEN, Urine WBC 0-5 SEEN, Ur Squamous Epith Cells 0-5 SEEN, Ur Renal Epithelial Cell 0-5 SEEN, Urine Bacteria 4+, Hyaline Casts 0-5 SEEN, Urine Mucus 1+ 07/26/20 20:10: PT 14.2, INR 1.2, Fibrinogen 434, D-Dimer Quant (PE/DVT) 3.38 H* 07/26/20 20:10: Lactic Acid 1.2 07/26/20 21:35: COVID-19 ([facility]) Not Detected 07/27/20 05:40: WBC 7.1, RBC 4.39, Hgb 13.2, Hct 40.8, MCV 92.9, MCH 30.1, MCHC 32.4, RDW Std Deviation 53.1 H, RDW Coeff of [place] 15.4 H, Plt Count 265, MPV 11.3, Immature Gran % (Auto) 2.000 H, Neut % (Auto) 85.1 H, Lymph % (Auto) 10.3 L, [place] % (Auto) 2.0, Eos % (Auto) 0.3, Baso % (Auto) 0.3, Absolute Neuts (auto) 6.0, Absolute Lymphs (auto) 0.73 L, Nucleated RBC % 0 07/27/20 05:40: Sodium 141, Potassium 4.1, Chloride 116 H, Carbon Dioxide 18.0 L , Anion Gap 7, BUN 31 H, Creatinine 0.92, Estim Creat Clear Calc 50.22, Est GFR (MDRD) Af Amer 77, Est GFR (MDRD) Non-Af 63, BUN/Creatinine Ratio 33.6 H, Glucose 181 H, Calcium 7.8 L, Magnesium 2.1, Total Bilirubin 0.50, AST 13 L, ALT 28, Alkaline Phosphatase 59, Total Protein 6.9, Albumin 2.8 L, Globulin 4.1, Albumin/Globulin Ratio 0.7 L Clinical Impression(s) from Imaging Studies Chest X-Ray 07/26/20 15:30 IMPRESSION: Bibasilar atelectasis. Electronically Signed: Julián Buckner MD (Brooks) at 15:51 EST , Service support , Chest CTA 07/26/20 22:28 IMPRESSION: Normal CTA chest examination, without a demonstrated pulmonary embolism, aortic aneurysm, or aortic dissection. Small patchy and less opacities, which are likely represent COVID-19 pneumonia. Atelectasis and/or small infiltrates in the posterior lung bases. Atherosclerosis. Electronically Signed: Raj Miramontes MD at 0:58 EST , Service support , Current Medications Aspirin (Aspirin 81 Mg Tab.Chew) 81 mg PO DAILY [facility] Last Admin: 07/27/20 09:22 Dose: 81 mg Documented by: Brimonidine Tartrate (Brimonidine 0.2% 5ml Bottle) 1 drop EACH EYE BID [facility] Last Admin: 07/27/20 09:23 Dose: 1 drop Documented by: Dexamethasone Sodium Phosphate (Dexamethasone 10 Mg/Ml Vial) 6 mg IV DAILY [facility] Last Admin: 07/27/20 09:21 Dose: 6 mg Documented by: Docusate Sodium (Docusate Sodium 100 Mg Capsule) 100 mg PO BID PRN PRN PRN Reason: Constipation Enoxaparin Sodium (Enoxaparin 30 Mg/0.3 Ml Syringe) 30 mg SC BID [facility] Last Admin: 07/27/20 09:21 Dose: 30 mg Documented by: Ergocalciferol (Ergocalciferol 50,000 Unit Capsule) 50,000 unit PO Fr@1000 [facility] Gabapentin (Gabapentin 100 Mg Capsule) 100 mg PO QHS [facility] Last Admin: 07/26/20 21:30 Dose: 100 mg Documented by: Sodium Chloride () 250 mls @ 15 mls/hr IV .[id number] PRN PRN Reason: Saline Flush Sodium Chloride () 250 mls @ 15 mls/hr IV .[id number] PRN PRN Reason: Additional IVPB Infusion Ceftriaxone Sodium (Rocephin) 1 gm in 50 mls @ 100 mls/hr IV Q24 [facility] Last Admin: 07/27/20 09:19 Dose: 100 mls/hr Documented by: Remdesivir 100 mg/ Sodium (Chloride) 250 mls @ 125 mls/hr IV DAILY [facility] Stop: 07/30/20 11:59 Latanoprost (Latanoprost 0.005% 1 Bottle) 1 drop EACH EYE QHS [facility] Last Admin: 07/26/20 21:35 Dose: 1 drop Documented by: Levothyroxine Sodium (Levothyroxine 100 Mcg Tablet) 100 mcg PO DAILY [facility] Last Admin: 07/27/20 09:22 Dose: 100 mcg Documented by: Nystatin (Nystatin Ointment) 1 applic TOPICAL BID [facility]; Protocol Last Admin: 07/27/20 09:23 Dose: 1 applicatio Documented by: Pantoprazole Sodium (Pantoprazole Sodium 40 Mg Tablet) 40 mg PO DAILY [facility] Last Admin: 07/27/20 09:22 Dose: 40 mg Documented by: Sodium Chloride (0.9% Saline Lock 10 Ml Syringe) 10 - 40 ml IV UD PRN PRN Reason: SALINE FLUSH Last Admin: 07/27/20 00:23 Dose: 10 ml Documented by: Timolol Maleate (Timolol 0.5% 5ml Opth.Btl) 1 drop EACH EYE BID [facility] Last Admin: 07/27/20 09:25 Dose: 1 drop Documented by: Medical Necessity - Tobacco Use Smoking Status: Never smoker Assessment/Plan All Active Problems (Last Reviewed 05/30/18 @ 13:54 by Megan Rai) COVID-19 virus infection (Acute) This is a 75 years old female patient presented to the emergency room because of weakness and she was found to have COVID-19 pneumonia as well as acute cystitis. #1 suspected acute COVID-19 pneumonia: Currently, she is on IV Decadron and remdesivir. COVID-19 antigen and PCR both came back negative. Currently, patient is on room air, no significant shortness of breath. CTA chest reviewed. No PE. Plan to continue same treatment, awaiting infectious disease recommendations. #2 probable acute cystitis versus asymptomatic bacteriuria: She is on IV Rocephin. She has been afebrile, no leukocytosis. Urine culture is pending. #3 dehydration: Due to poor oral intake and infection. Baseline creatinine has been around 1.1-1.3, admission creatinine was 1.39 and today, it is 0.92, stable. No evidence of acute kidney injury. #4 encephalopathy: Today, patient is alert and noted x3. Possible baseline dementia cannot be ruled out. #5 history of thyroid cancer: Status post surgery, followed by iatrogenic hypothyroidism, currently on levothyroxine, stable. #6 chronic hemangioma of the liver: Stable. #7 DVT prophylaxis: Subcu Lovenox twice daily. This note was generated with [employer] software. It may contain incorrect words, spelling, and punctuation that were not noted in checking the note before signing. Inpatient E&M: 96512 Subs Hosp L2
--- NOTE | 2020-07-27 12:10 | CASEMGMT ---
Addendum entered by Carlee Rogers 07/27/20 12:24: SW spoke w/pt's mattress spring encaser from [facility]. She confirms pt does not have any family contacts. She is not aware of a dementia diagnosis, and states that since pt has been at [facility] [place] has been doing very well mentally the last year and a half. (pt does carry diagnosis of anxiety and was evaluated for psych placement in 2018). She states pt has been independent with showering and self care, the assisted living provides meals and meds for pt. She has a walker but only uses it when out in the facility, not in her room. Pt did not have home health at the [facility] prior to admission. Santa asked that discharge instructions and summary be faxed to her when pt is discharged, fax # is [phone]. SW will continue to follow. NERY Baxter Original Note: JONY reviewed chart, pt is here from [facility]. SW called [facility] [place], message left. SW called pt's mattress spring encaser with [facility], Santa Daly, message left. Pt has no contacts listed in her demographics or in the paperwork from [facility]. SW attempted to call room, pt does not answer the phone. SW will continue to follow, plan to be determined. NERY Baxter
--- NOTE | 2020-07-27 16:44 | CON.PCM_ITS ---
Problem List (1) COVID-19 virus infection Status: Acute Reason for Consult: covid Consulted by: Dr. Preciado History of Present Illness: The patient is a 75 year old F lives at [facility], covid (+) there on 07/15. Taken to ED due to worsened mental status, lethargy, poor po intake. Covid pcr and Ag neg here. Started on iv dex, remdesivir, ceftriaxone. 92% on RA. Unable to provide history or ROS due to mental status. - Medical History Past Medical History (Chronic Problems): Chronic Problems (Last Reviewed 05/30/18 @ 13:54 by Megan Rai) Dementia (Chronic) Anxiety disorder (Chronic) Thyroid cancer (Chronic) Liver mass (Chronic) Left kidney mass (Chronic) Hemangioma of liver (Chronic) Allergies/Adverse Reactions: Allergies Penicillins Allergy (Verified 07/26/20 16:12) Unknown Sulfa (Sulfonamide Antibiotics) Allergy (Verified 07/26/20 16:12) Unknown Home Medications: Ambulatory Orders Medication Instructions Recorded Aspirin [Aspirin, Baby] 81 mg PO DAILY@0800 03/09/19 Benztropine Mesylate 1 mg PO BID 03/09/19 Brimonidine Tartrate/Timolol 1 drp OP BID 03/09/19 [Combigan 0.2%-0.5% Eye Drops] Docusate Sodium [Dok] 100 mg PO BID PRN 03/09/19 Ergocalciferol (Vitamin D2) 50,000 unit PO FR 03/09/19 [Vitamin D2] Latanoprost 0.005% [Xalatan 1 drp EACH EYE QHS 03/09/19 Opthalmic] Levothyroxine [Synthroid] 100 mcg PO DAILY 03/09/19 Mirtazapine [Remeron] 15 mg PO QHS 03/09/19 Olanzapine [Zyprexa] 2.5 mg PO QHS 03/09/19 Pantoprazole Sodium [Protonix] 40 mg PO BID 03/09/19 Hydrocodone/Acetaminophen [[place] 1 ea PO Q8H PRN PRN #10 tab 03/13/19 5-325 Tablet] Gabapentin [Neurontin] 100 mg PO QHS 07/26/20 Metformin HCl 500 mg PO DAILY 07/26/20 - Social History Tobacco Use: non-smoker Vital Signs Temp Pulse Resp BP Pulse Ox 98.3 F 73 18 113/67 92 07/27/20 14:40 07/27/20 15:23 07/27/20 14:40 07/27/20 14:40 07/27/20 14:40 Oxygen Delivery Method Room Air Weight: 72.978 kg Body Mass Index (BMI) 25.9 Microbiology Past 72 Hours 07/26/20 16:00 Urine Culture - Preliminary Urine Catheter - Catheter GNR lactose appellate conferee 07/26/20 21:35 Respiratory Panel (PCR) - Final Mucosa - Nose 07/26/20 16:00 Legionella Antigen - Final Urine, Clean Catch Streptococcus pneumoniae Antigen (M - Final 07/26/20 16:45 SARS-CoV-2 Antigen (Rapid) - Final Mucosa - Nose Laboratory Tests Past 24 Hrs 07/26/20 07/26/20 07/26/20 15:10 15:10 15:10 WBC RBC Hgb Hct MCV MCH MCHC RDW Std Deviation RDW Coeff of [place] Plt Count MPV Immature Gran % (Auto) Neut % (Auto) Lymph % (Auto) [place] % (Auto) Eos % (Auto) Baso % (Auto) Absolute Neuts (auto) Absolute Lymphs (auto) Nucleated RBC % PT INR Fibrinogen D-Dimer Quant (PE/DVT) Sodium Potassium Chloride Carbon Dioxide Anion Gap BUN Creatinine Estim Creat Clear Calc Est GFR (MDRD) Af Amer Est GFR (MDRD) Non-Af BUN/Creatinine Ratio Glucose Lactic Acid Calcium Magnesium Total Bilirubin AST ALT Alkaline Phosphatase 71 Lactate Dehydrogenase 316 H Total Creatine Kinase 54 C-React Prot Ext Range 62.70 H B-Natriuretic Peptide 27.9 Total Protein Albumin Globulin Albumin/Globulin Ratio Procalcitonin 0.06 COVID-19 ([facility]) 07/26/20 07/26/20 07/26/20 20:10 20:10 21:35 WBC RBC Hgb Hct MCV MCH MCHC RDW Std Deviation RDW Coeff of [place] Plt Count MPV Immature Gran % (Auto) Neut % (Auto) Lymph % (Auto) [place] % (Auto) Eos % (Auto) Baso % (Auto) Absolute Neuts (auto) Absolute Lymphs (auto) Nucleated RBC % PT 14.2 INR 1.2 Fibrinogen 434 D-Dimer Quant (PE/DVT) 3.38 H* Sodium Potassium Chloride Carbon Dioxide Anion Gap BUN Creatinine Estim Creat Clear Calc Est GFR (MDRD) Af Amer Est GFR (MDRD) Non-Af BUN/Creatinine Ratio Glucose Lactic Acid 1.2 Calcium Magnesium Total Bilirubin AST ALT Alkaline Phosphatase Lactate Dehydrogenase Total Creatine Kinase C-React Prot Ext Range B-Natriuretic Peptide Total Protein Albumin Globulin Albumin/Globulin Ratio Procalcitonin COVID-19 ([facility]) Not Detected 07/27/20 07/27/20 05:40 05:40 WBC 7.1 RBC 4.39 Hgb 13.2 Hct 40.8 MCV 92.9 MCH 30.1 MCHC 32.4 RDW Std Deviation 53.1 H RDW Coeff of [place] 15.4 H Plt Count 265 MPV 11.3 Immature Gran % (Auto) 2.000 H Neut % (Auto) 85.1 H Lymph % (Auto) 10.3 L [place] % (Auto) 2.0 Eos % (Auto) 0.3 Baso % (Auto) 0.3 Absolute Neuts (auto) 6.0 Absolute Lymphs (auto) 0.73 L Nucleated RBC % 0 PT INR Fibrinogen D-Dimer Quant (PE/DVT) Sodium 141 Potassium 4.1 Chloride 116 H Carbon Dioxide 18.0 L Anion Gap 7 BUN 31 H Creatinine 0.92 Estim Creat Clear Calc 50.22 Est GFR (MDRD) Af Amer 77 Est GFR (MDRD) Non-Af 63 BUN/Creatinine Ratio 33.6 H Glucose 181 H Lactic Acid Calcium 7.8 L Magnesium 2.1 Total Bilirubin 0.50 AST 13 L ALT 28 Alkaline Phosphatase 59 Lactate Dehydrogenase Total Creatine Kinase C-React Prot Ext Range B-Natriuretic Peptide Total Protein 6.9 Albumin 2.8 L Globulin 4.1 Albumin/Globulin Ratio 0.7 L Procalcitonin COVID-19 ([facility]) - Other Studies Radiology: [] reviewed Other Studies: [] Route of nutrition/ use of supplements: [] Nutritional Intake: [] IV Site: [] Spears Catheter: [] - Physical Exam General: No apparent distress, Confused, - - oriented x1 HEENT: Atraumatic, PERRLA, EOMI Neck: Supple Lungs: Diminished Cardiovascular: Regular rate, Regular Rhythm Abdomen: Soft, Non Tender, Non-Distended Extremities: No edema Skin: No rashes IV Site: Peripheral, without redness Musculoskeletal: No Tenderness to Palpation of Joints or Extremities Neurological: Cranial nerves II-XII grossly intact - Assessment/Plan Antibiotics: [] Assessment/Plan: [] Active and Suspected Problems (Last Reviewed 05/30/18 @ 13:54 by Megan Rai) COVID-19 virus infection (Acute) covid with hypoxia, dementia - covid (+) at [facility] on 07/15. On dex, remdesivir, lovenox 30mg bid. On ceftriaxone for GNR in UCx but UA without pyuria. Lactate 2.4, d-dimer 3.4. Will order labs for monitoring while on remdesivir. CT showed no PE. Will follow, thank you
[2020-07-27] MEDS: Gabapentin 100 MG Capsule PO (20:35)
[2020-07-27] MEDS: Latanoprost 0.005% 1 Bottle 1 DRP EACH EYE (20:38)
[2020-07-28] VITALS (10 sets, daily range): BP systolic 106–119; BP diastolic 57–82; PULSE 53–109; RESP 16–20; TEMP 36.4–36.9; O2SAT 92–93
[2020-07-28 06:00] LABS: Hematocrit 38.7 % (37-47); Hemoglobin 12.4 g/dL (12.0-15.0); Mean Corpuscular Hgb 29.5 pg (27.0-32.0); Mean Corpuscular Volume 92.1 fL (81-99); Mean Platelet Vol. 11.1 fl (6.2-12.0); Platelet Count 294 K/mm3 (150-450); RBC Distribution Width CV 15.5 % (11.6-14.6); RBC Distribution Width SD 51.8 fl (35.1-43.9); White Blood Count 10.8 K/mm3 (4.4-11.0)
[2020-07-28 06:24] LABS: ALB/GLOB Ratio 0.7 RATIO (0.9-2.4); AST(SGOT) 9 U/L (15-37); Alanine Aminotransfer ALT/SGPT 20 U/L (13-56); Albumin, Serum 2.5 g/dL (3.2-5.0); Alkaline Phosphatase 52 U/L (45-117); Anion Gap 8 (5-15); BUN 31 mg/dL (7-18); BUN/Creat Ratio 31.3 RATIO (10-20); Calcium,Total 8.1 mg/dL (8.5-10.1); Chloride 116 mmol/L (98-107); Creatinine, Serum 0.99 mg/dL (0.55-1.02); EST Glomerular Filtration Rate 58 mL/min (>60); Est Glom Filt Rate - Afr Amer 71 mL/min (>60); Estimated Creatinine Clearance 46.67 ml/min; Globulin 3.7 g/dL (2.2-4.2); Glucose 210 mg/dL (74-106); Potassium 3.5 mmol/L (3.5-5.1); Protein, Total 6.2 g/dL (6.4-8.2); Sodium Level 144 mmol/L (136-145)
[2020-07-28] MEDS: dexAMETHasone 4 MG Tablet 6 MG PO (09:33)
[2020-07-28] MEDS: Mag Hydrox/Al Hydrox/Simeth 30 ML UDC PO (09:33)
[2020-07-28] MEDS: BRIMONIDINE 0.2% 5ML BOTTLE 1 DRP EACH EYE ×2 (09:34→20:21)
[2020-07-28] MEDS: Nystatin Ointment 1 APPLIC TOPICAL ×2 (09:34→20:24)
[2020-07-28] MEDS: Enoxaparin 30 MG/0.3 ML Syringe SC ×2 (09:34→20:24)
[2020-07-28] MEDS: Ceftriaxone 1 GM/50 ML BAG IV (09:35)
[2020-07-28] MEDS: Pantoprazole Sodium 40 MG Tablet PO (09:35)
[2020-07-28] MEDS: Aspirin 81 MG TAB.CHEW PO (09:35)
[2020-07-28] MEDS: Timolol 0.5% 5ML OPTH.BTL 1 DRP EACH EYE ×2 (09:36→20:23)
[2020-07-28] MEDS: Levothyroxine 100 MCG Tablet PO (09:37)
--- NOTE | 2020-07-28 09:41 | PCM.PROGNOTE ---
Patient Problems: Active and Suspected Problems (Last Reviewed 05/30/18 @ 13:54 by Megan Rai) COVID-19 virus infection (Acute) Subjective: Chief complaint: Follow-up after admission for acute COVID-19 pneumonia and hyperglycemia. Patient seen and examined. No acute events overnight. This morning, she complained of heartburn after she ate. Denied shortness of breath. Reported mild cough. She remained on room air, afebrile, other vital signs are stable. - Physical Exam Vitals/I&O's: Vital Signs Temp Pulse Resp BP Pulse Ox 97.9 F 62 18 106/60 93 07/28/20 09:00 07/28/20 09:00 07/28/20 09:00 07/28/20 09:00 07/28/20 09:00 Oxygen Delivery Method Room Air Weight: 160 lb 14.239 oz Body Mass Index (BMI) 25.9 Intake and Output for Last 24 Hours 07/26/20 07/27/20 07/28/20 23:59 23:59 23:59 Intake Total 1460 / 1460 Balance 1460 / 1460 General: Alert, Oriented x3, Cooperative, No apparent distress HEENT: Atraumatic, PERRLA, EOMI, Normocephalic Oral: Moist Mucosa, No Gingival or Mucosal Lesions/ Ulcerations Neck: Supple, No JVD, Negative Carotid Bruits, Trachea Midline, Thyroid Normal Size and Texture Lungs: Clear to auscultation, No rhonchi, No wheeze, No rales, Diminished Cardiovascular: Regular rate, Regular Rhythm, Normal S1, Normal S2, PMI Normal Abdomen: Bowel Sounds Present, Soft, Non Tender, Non-Distended, No Hepato-splenomegaly Extremities: No clubbing, No cyanosis, No edema Skin: No rashes, No breakdown Lymphatic: No Cervical, Supraclavicular, or Inguinal Adenopathy Neurological: Cranial nerves II-XII grossly intact, Neuro grossly intact Psych/Mental Status: Normal Affect, Appropriate Microbiology Past 72 Hours 07/26/20 16:00 Urine Catheter - Catheter Urine Culture - Preliminary GNR lactose automatic spooler operator 07/26/20 21:35 Mucosa - Nose Respiratory Panel (PCR) - Final 07/26/20 16:00 Urine, Clean Catch Legionella Antigen - Final 07/26/20 16:00 Urine, Clean Catch Streptococcus pneumoniae Antigen (M - Final 07/26/20 16:45 Mucosa - Nose SARS-CoV-2 Antigen (Rapid) - Final Laboratory Results 07/28/20 05:52: WBC 10.8, RBC 4.20, Hgb 12.4, Hct 38.7, MCV 92.1, MCH 29.5, MCHC 32.0, RDW Std Deviation 51.8 H, RDW Coeff of [place] 15.5 H, Plt Count 294, MPV 11.1 07/28/20 05:52: Sodium 144, Potassium 3.5, Chloride 116 H, Carbon Dioxide 20.0 L, Anion Gap 8, BUN 31 H, Creatinine 0.99, Estim Creat Clear Calc 46.67, Est GFR (MDRD) Af Amer 71, Est GFR (MDRD) Non-Af 58 L, BUN/Creatinine Ratio 31.3 H, Glucose 210 H, Calcium 8.1 L, Total Bilirubin 0.40, AST 9 L, ALT 20, Alkaline Phosphatase 52, Total Protein 6.2 L, Albumin 2.5 L, Globulin 3.7, Albumin/Globulin Ratio 0.7 L Current Medications Aspirin (Aspirin 81 Mg Tab.Chew) 81 mg PO DAILY [facility] Last Admin: 07/28/20 09:35 Dose: 81 mg Documented by: Brimonidine Tartrate (Brimonidine 0.2% 5ml Bottle) 1 drop EACH EYE BID [facility] Last Admin: 07/28/20 09:34 Dose: 1 drop Documented by: Dexamethasone (Dexamethasone 4 Mg Tablet) 6 mg PO DAILY [facility] Stop: 08/04/20 10:01 Last Admin: 07/28/20 09:33 Dose: 6 mg Documented by: Docusate Sodium (Docusate Sodium 100 Mg Capsule) 100 mg PO BID PRN PRN PRN Reason: Constipation Enoxaparin Sodium (Enoxaparin 30 Mg/0.3 Ml Syringe) 30 mg SC BID [facility] Last Admin: 07/28/20 09:34 Dose: 30 mg Documented by: Ergocalciferol (Ergocalciferol 50,000 Unit Capsule) 50,000 unit PO Fr@1000 [facility] Gabapentin (Gabapentin 100 Mg Capsule) 100 mg PO QHS [facility] Last Admin: 07/27/20 20:35 Dose: 100 mg Documented by: Sodium Chloride () 250 mls @ 15 mls/hr IV .[id number] PRN PRN Reason: Saline Flush Sodium Chloride () 250 mls @ 15 mls/hr IV .[id number] PRN PRN Reason: Additional IVPB Infusion Ceftriaxone Sodium (Rocephin) 1 gm in 50 mls @ 100 mls/hr IV Q24 [facility] Last Admin: 07/28/20 09:35 Dose: 100 mls/hr Documented by: Remdesivir 100 mg/ Sodium (Chloride) 250 mls @ 125 mls/hr IV DAILY [facility] Stop: 07/30/20 11:59 Last Infusion: 07/27/20 13:55 Dose: Infused Documented by: Latanoprost (Latanoprost 0.005% 1 Bottle) 1 drop EACH EYE QHS [facility] Last Admin: 07/27/20 20:38 Dose: 1 drop Documented by: Levothyroxine Sodium (Levothyroxine 100 Mcg Tablet) 100 mcg PO DAILY [facility] Last Admin: 07/28/20 09:37 Dose: 100 mcg Documented by: Nystatin (Nystatin Ointment) 1 applic TOPICAL BID [facility]; Protocol Last Admin: 07/28/20 09:34 Dose: 1 applicatio Documented by: Ondansetron HCl (Ondansetron 4 Mg/2 Ml Vial) 4 mg IV Q8H PRN PRN PRN Reason: NAUSEA/VOMITING Pantoprazole Sodium (Pantoprazole Sodium 40 Mg Tablet) 40 mg PO DAILY [facility] Last Admin: 07/28/20 09:35 Dose: 40 mg Documented by: Sodium Chloride (0.9% Saline Lock 10 Ml Syringe) 10 - 40 ml IV UD PRN PRN Reason: SALINE FLUSH Last Admin: 07/27/20 00:23 Dose: 10 ml Documented by: Timolol Maleate (Timolol 0.5% 5ml Opth.Btl) 1 drop EACH EYE BID [facility] Last Admin: 07/28/20 09:36 Dose: 1 drop Documented by: Medical Necessity - Tobacco Use Smoking Status: Never smoker Assessment/Plan All Active Problems (Last Reviewed 05/30/18 @ 13:54 by Megan Rai) COVID-19 virus infection (Acute) This is a 75 years old female patient presented to the emergency room because of weakness and she was found to have COVID-19 pneumonia as well as acute cystitis. #1 acute COVID-19 pneumonia: Patient tested positive for COVID-19 on July 15, 2020. Currently, she is on IV Decadron and remdesivir. During this admission, COVID-19 antigen and PCR both came back negative. Currently, patient is on room air, no significant shortness of breath. CTA chest reviewed. No PE. Infectious disease on the case. Plan to continue same treatment. #2 probable acute cystitis versus asymptomatic bacteriuria: She is on IV Rocephin. She has been afebrile, no leukocytosis. Urine culture revealed gram-negative rods, final is pending. #3 dehydration: Due to poor oral intake and infection. Baseline creatinine has been around 1.1-1.3, admission creatinine was 1.39 and today, it is 0.99, stable. No evidence of acute kidney injury. #4 encephalopathy: Today, patient is alert and noted x3. Possible baseline dementia cannot be ruled out. #5 hyperglycemia: Without history of diabetes. Today's glucose is 210. Plan: Accu-Cheks AC at bedtime, check hemoglobin A1c, insulin sliding scale. #6 history of thyroid cancer: Status post surgery, followed by iatrogenic hypothyroidism, currently on levothyroxine, stable. #7 chronic hemangioma of the liver: Stable. #8 DVT prophylaxis: Subcu Lovenox twice daily. This note was generated with [employer] dictation software. It may contain incorrect words, spelling, and punctuation that were not noted in checking the note before signing. Inpatient E&M: 91514 Subs Hosp L2
[2020-07-28 10:18] LABS: Hemoglobin A1c 7.4 % (3.8-5.6)
--- NOTE | 2020-07-28 11:21 | PCM.PN.ID ---
Patient Problems: Active and Suspected Problems (Last Reviewed 05/30/18 @ 13:54 by Megan Rai) COVID-19 virus infection (Acute) Subjective: No fever, breathing better - Physical Exam Vitals/I&O's: Vital Signs Temp Pulse Resp BP Pulse Ox 97.9 F 62 18 106/60 93 07/28/20 09:00 07/28/20 09:00 07/28/20 09:00 07/28/20 09:00 07/28/20 09:00 Oxygen Delivery Method Room Air Weight: 72.978 kg Body Mass Index (BMI) 25.9 Intake and Output for Last 24 Hours 07/26/20 07/27/20 07/28/20 23:59 23:59 23:59 Intake Total 1460 / 1460 Balance 1460 / 1460 General: Lethargic Lungs: Clear to auscultation, Diminished Cardiovascular: Regular rate, Regular Rhythm Abdomen: Soft, Non Tender, Non-Distended Skin: No rashes Microbiology Past 72 Hours 07/26/20 16:00 Urine Catheter - Catheter Urine Culture - 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 07/26/20 21:35 Mucosa - Nose Respiratory Panel (PCR) - Final 07/26/20 16:00 Urine, Clean Catch Legionella Antigen - Final 07/26/20 16:00 Urine, Clean Catch Streptococcus pneumoniae Antigen (M - Final 07/26/20 16:45 Mucosa - Nose SARS-CoV-2 Antigen (Rapid) - Final Laboratory Results 07/28/20 05:52: WBC 10.8, RBC 4.20, Hgb 12.4, Hct 38.7, MCV 92.1, MCH 29.5, MCHC 32.0, RDW Std Deviation 51.8 H, RDW Coeff of Salvador 15.5 H, Plt Count 294, MPV 11.1 07/28/20 05:52: Sodium 144, Potassium 3.5, Chloride 116 H, Carbon Dioxide 20.0 L, Anion Gap 8, BUN 31 H, Creatinine 0.99, Estim Creat Clear Calc 46.67, Est GFR (MDRD) Af Amer 71, Est GFR (MDRD) Non-Af 58 L, BUN/Creatinine Ratio 31.3 H, Glucose 210 H, Calcium 8.1 L, Total Bilirubin 0.40, AST 9 L, ALT 20, Alkaline Phosphatase 52, Total Protein 6.2 L, Albumin 2.5 L, Globulin 3.7, Albumin/Globulin Ratio 0.7 L 07/28/20 05:52: Hemoglobin A1c 7.4 H Current Medications Aspirin (Aspirin 81 Mg Tab.Chew) 81 mg PO DAILY [facility] Last Admin: 07/28/20 09:35 Dose: 81 mg Documented by: Brimonidine Tartrate (Brimonidine 0.2% 5ml Bottle) 1 drop EACH EYE BID [facility] Last Admin: 07/28/20 09:34 Dose: 1 drop Documented by: Dexamethasone (Dexamethasone 4 Mg Tablet) 6 mg PO DAILY [facility] Stop: 08/04/20 10:01 Last Admin: 07/28/20 09:33 Dose: 6 mg Documented by: Docusate Sodium (Docusate Sodium 100 Mg Capsule) 100 mg PO BID PRN PRN PRN Reason: Constipation Enoxaparin Sodium (Enoxaparin 30 Mg/0.3 Ml Syringe) 30 mg SC BID [facility] Last Admin: 07/28/20 09:34 Dose: 30 mg Documented by: Ergocalciferol (Ergocalciferol 50,000 Unit Capsule) 50,000 unit PO Fr@1000 PIEDAD Gabapentin (Gabapentin 100 Mg Capsule) 100 mg PO QHS [facility] Last Admin: 07/27/20 20:35 Dose: 100 mg Documented by: Sodium Chloride () 250 mls @ 15 mls/hr IV .[id number] PRN PRN Reason: Saline Flush Sodium Chloride () 250 mls @ 15 mls/hr IV .[id number] PRN PRN Reason: Additional IVPB Infusion Ceftriaxone Sodium (Rocephin) 1 gm in 50 mls @ 100 mls/hr IV Q24 [facility] Last Admin: 07/28/20 09:35 Dose: 100 mls/hr Documented by: Remdesivir 100 mg/ Sodium (Chloride) 250 mls @ 125 mls/hr IV DAILY [facility] Stop: 07/30/20 11:59 Last Admin: 07/28/20 10:37 Dose: 125 mls/hr Documented by: Insulin Human Lispro (Insulin Lispro 100 Unit/Ml Insuln.Pen) 0 unit SC ACHS [facility]; Protocol Latanoprost (Latanoprost 0.005% 1 Bottle) 1 drop EACH EYE QHS [facility] Last Admin: 07/27/20 20:38 Dose: 1 drop Documented by: Levothyroxine Sodium (Levothyroxine 100 Mcg Tablet) 100 mcg PO DAILY [facility] Last Admin: 07/28/20 09:37 Dose: 100 mcg Documented by: Nystatin (Nystatin Ointment) 1 applic TOPICAL BID [facility]; Protocol Last Admin: 07/28/20 09:34 Dose: 1 applicatio Documented by: Ondansetron HCl (Ondansetron 4 Mg/2 Ml Vial) 4 mg IV Q8H PRN PRN PRN Reason: NAUSEA/VOMITING Pantoprazole Sodium (Pantoprazole Sodium 40 Mg Tablet) 40 mg PO DAILY [facility] Last Admin: 07/28/20 09:35 Dose: 40 mg Documented by: Sodium Chloride (0.9% Saline Lock 10 Ml Syringe) 10 - 40 ml IV UD PRN PRN Reason: SALINE FLUSH Last Admin: 07/27/20 00:23 Dose: 10 ml Documented by: Timolol Maleate (Timolol 0.5% 5ml Opth.Btl) 1 drop EACH EYE BID [facility] Last Admin: 07/28/20 09:36 Dose: 1 drop Documented by: Medical Necessity - Tobacco Use Smoking Status: Never smoker Route of nutrition/ use of supplements: [] Nutritional Intake: [] IV Site: [] Spears Catheter: [] - Assessment/Plan Antibiotics: [] Assessment/Plan: [] Active and Suspected Problems (Last Reviewed 05/30/18 @ 13:54 by Megan Rai) COVID-19 virus infection (Acute) covid with hypoxia, dementia - covid (+) at [facility] on 07/15. On dex, remdesivir, lovenox 30mg bid. On ceftriaxone for GNR in UCx but UA without pyuria. Lactate 2.4, d-dimer 3.4. CT showed no PE. Likely ok for discharge today or tomorrow. Will follow
[2020-07-28] MEDS: Insulin Lispro 100 UNIT/ML INSULN.PEN SC ×3 (11:33→21:44)
[2020-07-28 11:41] LABS: Bedside Glucose 252 mg/dL (70-110)
--- NOTE | 2020-07-28 15:00 | CASEMGMT ---
SW spoke w/Hope from [facility]. Pt normally gets around independently, uses a walker. Pt was not on oxygen prior to admission. Hope confirmed pt has no family contacts. PT/OT pending, SW will continue to follow for appropriate discharge needs. NERY Baxter
[2020-07-28 16:55] LABS: Bedside Glucose 305 mg/dL (70-110)
--- NOTE | 2020-07-28 18:36 | PCS.PANDOC ---
PANDEMIC DOCUMENTATION INITIATED: Date: 07/28 Time: 1814
[2020-07-28] MEDS: Latanoprost 0.005% 1 Bottle 1 DRP EACH EYE (20:23)
[2020-07-28] MEDS: Gabapentin 100 MG Capsule PO (20:24)
[2020-07-28] MEDS: 0.9% Saline Lock 10 ML Syringe IV (20:38)
[2020-07-28 21:50] LABS: Bedside Glucose 332 mg/dL (70-110)
[2020-07-29] VITALS (10 sets, daily range): BP systolic 121–145; BP diastolic 69–78; PULSE 52–69; RESP 16–24; TEMP 36.4–36.7; O2SAT 91–96
[2020-07-29] MEDS: Insulin Lispro 100 UNIT/ML INSULN.PEN SC ×4 (06:28→21:40)
[2020-07-29 06:45] LABS: Bedside Glucose 231 mg/dL (70-110)
[2020-07-29 07:51] LABS: Hematocrit 41.5 % (37-47); Hemoglobin 13.4 g/dL (12.0-15.0); Mean Corp Hgb Conc 32.3 g/dL (32-36); Mean Corpuscular Hgb 29.3 pg (27.0-32.0); Mean Corpuscular Volume 90.8 fL (81-99); Mean Platelet Vol. 11.9 fl (6.2-12.0); Platelet Count 321 K/mm3 (150-450); RBC Distribution Width CV 15.2 % (11.6-14.6); RBC Distribution Width SD 50.6 fl (35.1-43.9); Red Blood Count 4.57 M/mm3 (4.2-5.4)
[2020-07-29 08:22] LABS: ALB/GLOB Ratio 0.8 RATIO (0.9-2.4); AST(SGOT) 7 U/L (15-37); Alanine Aminotransfer ALT/SGPT 24 U/L (13-56); Albumin, Serum 2.8 g/dL (3.2-5.0); Alkaline Phosphatase 59 U/L (45-117); Anion Gap 7 (5-15); BUN 28 mg/dL (7-18); BUN/Creat Ratio 30.9 RATIO (10-20); Calcium,Total 8.6 mg/dL (8.5-10.1); Chloride 112 mmol/L (98-107); Creatinine, Serum 0.91 mg/dL (0.55-1.02); EST Glomerular Filtration Rate 65 mL/min (>60); Est Glom Filt Rate - Afr Amer 78 mL/min (>60); Estimated Creatinine Clearance 50.77 ml/min; Globulin 3.5 g/dL (2.2-4.2); Glucose 238 mg/dL (74-106); Potassium 4.2 mmol/L (3.5-5.1); Protein, Total 6.3 g/dL (6.4-8.2); Sodium Level 141 mmol/L (136-145)
[2020-07-29] MEDS: Ceftriaxone 1 GM/50 ML BAG IV (09:02)
[2020-07-29] MEDS: Ondansetron 4 MG/2 ML Vial IV (09:02)
[2020-07-29] MEDS: 0.9% Saline Lock 10 ML Syringe IV ×3 (09:02→21:33)
[2020-07-29] MEDS: dexAMETHasone 4 MG Tablet 6 MG PO (09:06)
[2020-07-29] MEDS: Pantoprazole Sodium 40 MG Tablet PO (09:06)
[2020-07-29] MEDS: Levothyroxine 100 MCG Tablet PO (09:06)
[2020-07-29] MEDS: Aspirin 81 MG TAB.CHEW PO (09:06)
[2020-07-29] MEDS: Enoxaparin 30 MG/0.3 ML Syringe SC ×2 (09:07→21:34)
[2020-07-29] MEDS: Timolol 0.5% 5ML OPTH.BTL 1 DRP EACH EYE ×2 (09:08→21:38)
[2020-07-29] MEDS: Nystatin Ointment 1 APPLIC TOPICAL ×2 (09:08→21:36)
[2020-07-29] MEDS: BRIMONIDINE 0.2% 5ML BOTTLE 1 DRP EACH EYE ×2 (09:08→21:37)
--- NOTE | 2020-07-29 11:44 | PCM.PROGNOTE ---
Patient Problems: Active and Suspected Problems (Last Reviewed 05/30/18 @ 13:54 by Megan Rai) COVID-19 virus infection (Acute) Subjective: Chief complaint: Follow-up after admission for acute COVID-19 pneumonia. Patient seen and examined. No acute events overnight. This morning, she complained of being lightheaded but her vital signs were stable. Denied any chest pain or shortness of breath. Denied any more heartburn or epigastric pain. Apparently, patient is diabetic and she has been on Metformin. Her vital signs are stable. - Physical Exam Vitals/I&O's: Vital Signs Temp Pulse Resp BP Pulse Ox 98.1 F 64 20 H 121/70 H 93 07/29/20 08:16 07/29/20 08:16 07/29/20 10:20 07/29/20 08:16 07/29/20 10:20 Oxygen Delivery Method Room Air Weight: 160 lb 14.239 oz Body Mass Index (BMI) 25.9 Intake and Output for Last 24 Hours 07/27/20 07/28/20 07/29/20 23:59 23:59 23:59 Intake Total 400 / 400 50 / 50 Output Total 300 / 300 Balance 100 / 100 50 / 50 General: Alert, Cooperative, No apparent distress HEENT: Atraumatic, PERRLA, EOMI, Normocephalic Oral: Moist Mucosa, No Gingival or Mucosal Lesions/ Ulcerations Neck: Supple, No JVD, Negative Carotid Bruits, Trachea Midline, Thyroid Normal Size and Texture Lungs: Clear to auscultation, No rhonchi, No wheeze, No rales, Diminished Cardiovascular: Regular rate, Regular Rhythm, Normal S1, Normal S2, PMI Normal Abdomen: Bowel Sounds Present, Soft, Non Tender, Non-Distended, No Hepato-splenomegaly Extremities: No clubbing, No cyanosis, No edema Skin: No rashes, No breakdown Lymphatic: No Cervical, Supraclavicular, or Inguinal Adenopathy Neurological: Cranial nerves II-XII grossly intact, Neuro grossly intact Psych/Mental Status: Normal Affect, Appropriate Microbiology Past 72 Hours 07/26/20 16:00 Urine Catheter - Catheter Urine Culture - Final Escherichia coli 07/26/20 20:10 Blood Culture (Wb) - Left Hand Blood Culture - Preliminary No growth in 48 hours. 12/06/20 15:10 Blood Culture (Wb) - Right Forearm Blood Culture - Preliminary No growth in 48 hours. 07/26/20 21:35 Mucosa - Nose Respiratory Panel (PCR) - Final 07/26/20 16:00 Urine, Clean Catch Legionella Antigen - Final 07/26/20 16:00 Urine, Clean Catch Streptococcus pneumoniae Antigen (M - Final 07/26/20 16:45 Mucosa - Nose SARS-CoV-2 Antigen (Rapid) - Final Laboratory Results 07/28/20 16:43: POC Glucose 305 H 07/28/20 21:44: POC Glucose 332 H 07/29/20 06:27: POC Glucose 231 H 07/29/20 07:05: WBC 11.0, RBC 4.57, Hgb 13.4, Hct 41.5, MCV 90.8, MCH 29.3, MCHC 32.3, RDW Std Deviation 50.6 H, RDW Coeff of Salvador 15.2 H, Plt Count 321, MPV 11.9 07/29/20 07:05: Sodium 141, Potassium 4.2, Chloride 112 H, Carbon Dioxide 22.0, Anion Gap 7, BUN 28 H, Creatinine 0.91, Estim Creat Clear Calc 50.77, Est GFR (MDRD) Af Amer 78, Est GFR (MDRD) Non-Af 65, BUN/Creatinine Ratio 30.9 H, Glucose 238 H, Calcium 8.6, Total Bilirubin 0.40, AST 7 L, ALT 24, Alkaline Phosphatase 59, Total Protein 6.3 L, Albumin 2.8 L, Globulin 3.5, Albumin/Globulin Ratio 0.8 L Current Medications Aspirin (Aspirin 81 Mg Tab.Chew) 81 mg PO DAILY [facility] Last Admin: 07/29/20 09:06 Dose: 81 mg Documented by: Brimonidine Tartrate (Brimonidine 0.2% 5ml Bottle) 1 drop EACH EYE BID [facility] Last Admin: 07/29/20 09:08 Dose: 1 drop Documented by: Calamine/Phenol (Menthol/Lanolin/Calamine/Znox 113 Gm Tube) 1 applic TOPICAL TID PRN; Protocol PRN Reason: Diaper Rash Dexamethasone (Dexamethasone 4 Mg Tablet) 6 mg PO DAILY [facility] Stop: 08/04/20 10:01 Last Admin: 07/29/20 09:06 Dose: 6 mg Documented by: Docusate Sodium (Docusate Sodium 100 Mg Capsule) 100 mg PO BID PRN PRN PRN Reason: Constipation Enoxaparin Sodium (Enoxaparin 30 Mg/0.3 Ml Syringe) 30 mg SC BID [facility] Last Admin: 07/29/20 09:07 Dose: 30 mg Documented by: Ergocalciferol (Ergocalciferol 50,000 Unit Capsule) 50,000 unit PO Fr@1000 PIEDAD Gabapentin (Gabapentin 100 Mg Capsule) 100 mg PO QHS [facility] Last Admin: 07/28/20 20:24 Dose: 100 mg Documented by: Sodium Chloride () 250 mls @ 15 mls/hr IV .[id number] PRN PRN Reason: Saline Flush Sodium Chloride () 250 mls @ 15 mls/hr IV .[id number] PRN PRN Reason: Additional IVPB Infusion Ceftriaxone Sodium (Rocephin) 1 gm in 50 mls @ 100 mls/hr IV Q24 [facility] Last Infusion: 07/29/20 10:18 Dose: Infused Documented by: Remdesivir 100 mg/ Sodium (Chloride) 250 mls @ 125 mls/hr IV DAILY [facility] Stop: 07/30/20 11:59 Last Admin: 07/29/20 10:19 Dose: 125 mls/hr Documented by: Insulin Human Lispro (Insulin Lispro 100 Unit/Ml Insuln.Pen) 0 unit SC ACHS [facility]; Protocol Last Admin: 07/29/20 06:28 Dose: 2 units Documented by: Latanoprost (Latanoprost 0.005% 1 Bottle) 1 drop EACH EYE QHS [facility] Last Admin: 07/28/20 20:23 Dose: 1 drop Documented by: Levothyroxine Sodium (Levothyroxine 100 Mcg Tablet) 100 mcg PO DAILY [facility] Last Admin: 07/29/20 09:06 Dose: 100 mcg Documented by: Metformin HCl (Metformin Hcl 500 Mg Tablet) [facility] Nystatin (Nystatin Ointment) 1 applic TOPICAL BID [facility]; Protocol Last Admin: 07/29/20 09:08 Dose: 1 applicatio Documented by: Ondansetron HCl (Ondansetron 4 Mg/2 Ml Vial) 4 mg IV Q8H PRN PRN PRN Reason: NAUSEA/VOMITING Last Admin: 07/29/20 09:02 Dose: 4 mg Documented by: Pantoprazole Sodium (Pantoprazole Sodium 40 Mg Tablet) 40 mg PO DAILY [facility] Last Admin: 07/29/20 09:06 Dose: 40 mg Documented by: Sodium Chloride (0.9% Saline Lock 10 Ml Syringe) 10 - 40 ml IV UD PRN PRN Reason: SALINE FLUSH Last Admin: 07/29/20 09:02 Dose: 10 ml Documented by: Timolol Maleate (Timolol 0.5% 5ml Opth.Btl) 1 drop EACH EYE BID [facility] Last Admin: 07/29/20 09:08 Dose: 1 drop Documented by: Medical Necessity - Tobacco Use Smoking Status: Never smoker Assessment/Plan All Active Problems (Last Reviewed 05/30/18 @ 13:54 by Megan Rai) COVID-19 virus infection (Acute) This is a 75 years old female patient presented to the emergency room because of weakness and she was found to have COVID-19 pneumonia as well as acute cystitis. #1 acute COVID-19 pneumonia: She is on p.o. Decadron and remdesivir. Her respiratory status remained stable, on room air, afebrile, no leukocytosis. Patient tested positive for COVID-19 on July 15, 2020. During this admission, COVID-19 antigen and PCR both came back negative. Currently, patient is on room air, no significant shortness of breath. CTA chest reviewed. No PE. Infectious disease on the case. Plan to continue same treatment, anticipate discharge to SNF tomorrow. #2 probable acute cystitis versus asymptomatic bacteriuria: She is on IV Rocephin. She has been afebrile, no leukocytosis. Urine culture revealed E. coli, pansensitive. #3 dehydration: Due to poor oral intake and infection. Baseline creatinine has been around 1.1-1.3, admission creatinine was 1.39 and today, it is 0.91, stable. No evidence of acute kidney injury. #4 encephalopathy: She remained alert and noted x3 sometimes disoriented. Possible baseline dementia cannot be ruled out. #5 Type 2 diabetes mellitus: Hemoglobin A1c 7.4%. Blood sugar has been range of 200s. She is on Metformin. Plan to continue same treatment. #6 history of thyroid cancer: Status post surgery, followed by iatrogenic hypothyroidism, currently on levothyroxine, stable. #7 chronic hemangioma of the liver: Stable. #8 DVT prophylaxis: Subcu Lovenox twice daily. This note was generated with [employer] dictation software. It may contain incorrect words, spelling, and punctuation that were not noted in checking the note before signing. Inpatient E&M: 77684 Subs Hosp L2
[2020-07-29] MEDS: Menthol/Lanolin/Calamine/Znox 113 GM Tube 1 APPLIC TOPICAL ×2 (12:02→18:48)
--- NOTE | 2020-07-29 12:18 | CASEMGMT ---
Social Work JONY spoke with Khadijah at [facility]. Khadijah states that prior to getting ill (pt tested positive for covid 07/15 and became much more ill a day or two later), pt was alert and oriented x3 and able to care for all ADLS. Staff assisted with scheduled showers, meals and meds. After pt got Covid, she became confused and stopped eating and this is why she was sent to ED. Khadijah confirms there is no emergency contact and guardianship had never been pursued as they have never had a problem with pt since admission to assisted living in March 2018. JONY informed Khadijah that nursing staff is reporting that pt has very red ike area, dried on BM and unkept oral care. Hope stating the staff did not know she was not caring for herself. SW inquired about how much care [facility] can provide to pt if she returns, and they are able to provide minimum assist of 1 for ADL assist but Hope also states pt will have to be alert and oriented enough to use the call light if she needs something. JONY inquired if they will regularly check on pt and assist with ADLS and she states they will but pt will also need to be able to call in between staff visits if she needs help. JONY spoke with Santa Daly at [facility]. Santa states pt has been doing well at [facility] and is Alert and Oriented x3 and able to care for herself with assistance of meds and meals. Santa also states she has called pt in late June after pt became ill and pt did not answer phone or return calls which is very unusual for pt. JONY met with pt in room. Pt laying in bed with lunch tray in front of her. Pt stating that she did not eat much and also able to say what foods on her tray she did not like. Pt able to tell this worker that she was at [facility] and that she had recently become sick. Pt also able to state that she lives at [facility] by herself and does not have family or friends that she is in contact with. Pt tells SW that it is either Monday or Monday and that the Holidays will be coming up shortly and pt able to verbalize her feelings about [place]. JONY had an extensive discussion with pt about need for short term stay in SNF prior to return to assisted living. Pt initially stating she did not want to go to correction, but as SW discussed need for rehabilitation for strengthening and recovery from illness so pt can regain ability to care for herself prior to returning to [place] pt became agreeable to referral. Referral to [facility], however received information that they are no longer accepting admissions. VM left with [facility]. Will await return call to see if they have beds available. MAYCO Wood
[2020-07-29 14:06] LABS: Bedside Glucose 319 mg/dL (70-110)
[2020-07-29] MEDS: metFORMIN HCl 500 MG Tablet PO (16:10)
[2020-07-29 16:16] LABS: Bedside Glucose 417 mg/dL (70-110)
--- NOTE | 2020-07-29 16:32 | CASEMGMT ---
Social Work SW called [facility] and they do not have a bed available at this time. JUSTIN left with [facility] to inquire about bed availability. JONY will wait for determination. MAYCO Wood
[2020-07-29] MEDS: Latanoprost 0.005% 1 Bottle 1 DRP EACH EYE (21:37)
[2020-07-29] MEDS: Gabapentin 100 MG Capsule PO (21:42)
[2020-07-29 22:31] LABS: Bedside Glucose 376 mg/dL (70-110)
[2020-07-30] VITALS (10 sets, daily range): BP systolic 120–150; BP diastolic 70–77; PULSE 49–60; RESP 18–20; TEMP 35.8–36.5; O2SAT 89–97
[2020-07-30 05:42] LABS: Hematocrit 40.5 % (37-47); Hemoglobin 13.3 g/dL (12.0-15.0); Mean Corp Hgb Conc 32.8 g/dL (32-36); Mean Corpuscular Hgb 29.5 pg (27.0-32.0); Mean Corpuscular Volume 89.8 fL (81-99); Mean Platelet Vol. 11.6 fl (6.2-12.0); Platelet Count 314 K/mm3 (150-450); RBC Distribution Width CV 15.1 % (11.6-14.6); RBC Distribution Width SD 49.7 fl (35.1-43.9); Red Blood Count 4.51 M/mm3 (4.2-5.4); White Blood Count 9.8 K/mm3 (4.4-11.0)
[2020-07-30 06:01] LABS: ALB/GLOB Ratio 0.8 RATIO (0.9-2.4); AST(SGOT) 15 U/L (15-37); Alanine Aminotransfer ALT/SGPT 25 U/L (13-56); Albumin, Serum 2.7 g/dL (3.2-5.0); Alkaline Phosphatase 52 U/L (45-117); Anion Gap 5 (5-15); BUN 26 mg/dL (7-18); BUN/Creat Ratio 32.5 RATIO (10-20); Calcium,Total 8.2 mg/dL (8.5-10.1); Chloride 109 mmol/L (98-107); EST Glomerular Filtration Rate 75 mL/min (>60); Est Glom Filt Rate - Afr Amer 90 mL/min (>60); Estimated Creatinine Clearance 57.76 ml/min; Globulin 3.2 g/dL (2.2-4.2); Glucose 247 mg/dL (74-106); Potassium 4.6 mmol/L (3.5-5.1); Protein, Total 5.9 g/dL (6.4-8.2); Sodium Level 139 mmol/L (136-145)
[2020-07-30] MEDS: Insulin Lispro 100 UNIT/ML INSULN.PEN SC ×4 (06:48→21:52)
[2020-07-30] MEDS: Enoxaparin 30 MG/0.3 ML Syringe SC ×2 (08:28→20:35)
[2020-07-30] MEDS: Pantoprazole Sodium 40 MG Tablet PO (08:29)
[2020-07-30] MEDS: dexAMETHasone 4 MG Tablet 6 MG PO (08:29)
[2020-07-30] MEDS: metFORMIN HCl 500 MG Tablet PO ×2 (08:29→16:40)
[2020-07-30] MEDS: Aspirin 81 MG TAB.CHEW PO (08:29)
[2020-07-30] MEDS: BRIMONIDINE 0.2% 5ML BOTTLE 1 DRP EACH EYE ×2 (08:30→20:31)
[2020-07-30] MEDS: Nystatin Ointment 1 APPLIC TOPICAL ×2 (08:30→20:35)
[2020-07-30] MEDS: Timolol 0.5% 5ML OPTH.BTL 1 DRP EACH EYE ×2 (08:31→20:33)
--- NOTE | 2020-07-30 08:48 | RAD_ITS ---
STUDY: X-RAY CHEST REASON FOR EXAM: Female, 75 years old. COVID 19, now requiring oxygen TECHNIQUE: Single AP portable view of the chest. COMPARISON: Comparison is made with prior study dated 07/26/2020. FINDINGS: Since prior study, there has been minimal increased infiltrate in the left lower lobe and the peripheral distribution. Minimal increased markings at the right lung base. Blunting of the costophrenic angles bilaterally. Normal size heart. Normal mediastinum and lele. Normal visualized pulmonary arteries. There is atherosclerotic tortuosity of the aortic arch and descending thoracic aorta. There are degenerative changes of the visualized thoracic spine. Normal visualized ribs, clavicles, and shoulders. There is no demonstrated abnormality of the visualized soft tissue structures of the upper abdomen. RAD/Chest 1 View (Portable) IMPRESSION: Since prior study, there has been progressive infiltrate in the left lower lobe and the lateral distribution as well as mild increased markings at the right lung base. Electronically Signed: Oj Durham, at 10:30 EST , Service support ,
--- NOTE | 2020-07-30 09:36 | PN_ITS ---
Patient Problems: Active and Suspected Problems (Last Reviewed 05/30/18 @ 13:54 by Megan Rai) COVID-19 virus infection (Acute) Subjective: Chief complaint: Follow-up after admission for acute COVID-19 pneumonia and acute hypoxic respiratory insufficiency. Patient seen and examined. Yesterday evening, patient started having mild shortness of breath, started requiring oxygen of up to 3 L. This morning, she mentioned that she is okay, breathing is fine. Denied cough or sputum production. Denied fever or chills. Currently, she is on 3 L of oxygen, pulse ox is 97%, other vital signs are stable. - Physical Exam Vitals/I&O's: Vital Signs Temp Pulse Resp BP Pulse Ox 97.2 F L 49 L 20 H 143/77 H 97 07/30/20 06:47 07/30/20 06:47 07/30/20 08:24 07/30/20 06:47 07/30/20 08:24 Oxygen Flow Rate (L/min) 3 Oxygen Delivery Method Nasal Cannula Weight: 160 lb 14.239 oz Body Mass Index (BMI) 25.9 Intake and Output for Last 24 Hours 07/28/20 07/29/20 07/30/20 23:59 23:59 23:59 Intake Total 400 / 400 400 / 400 150 / 150 Output Total 300 / 300 200 / 200 Balance 100 / 100 400 / 400 -50 / -50 General: Alert, Cooperative, No apparent distress HEENT: Atraumatic, PERRLA, EOMI, Normocephalic Oral: Moist Mucosa, No Gingival or Mucosal Lesions/ Ulcerations Neck: Supple, No JVD, Negative Carotid Bruits, Trachea Midline, Thyroid Normal Size and Texture Lungs: Clear to auscultation, No rhonchi, No wheeze, No rales, Diminished Cardiovascular: Regular rate, Regular Rhythm, Normal S1, Normal S2, PMI Normal Abdomen: Bowel Sounds Present, Soft, Non Tender, Non-Distended, No Hepato- splenomegaly Extremities: No clubbing, No cyanosis, No edema Skin: No rashes, No breakdown Lymphatic: No Cervical, Supraclavicular, or Inguinal Adenopathy Neurological: Cranial nerves II-XII grossly intact, Neuro grossly intact Psych/Mental Status: Normal Affect, Appropriate Microbiology Past 72 Hours 07/26/20 16:00 Urine Catheter - Catheter Urine Culture - Final Escherichia coli 12/06/20 20:10 Blood Culture (Wb) - Left Hand Blood Culture - Preliminary No growth in 48 hours. 07/26/20 15:10 Blood Culture (Wb) - Right Forearm Blood Culture - Preliminary No growth in 48 hours. Laboratory Results 07/29/20 11:50: POC Glucose 319 H 07/29/20 16:02: POC Glucose 417 H 07/29/20 21:30: POC Glucose 376 H 07/30/20 05:08: WBC 9.8, RBC 4.51, Hgb 13.3, Hct 40.5, MCV 89.8, MCH 29.5, MCHC 32.8, RDW Std Deviation 49.7 H, RDW Coeff of Salvador 15.1 H, Plt Count 314, MPV 11.6 07/30/20 05:08: Sodium 139, Potassium 4.6, Chloride 109 H, Carbon Dioxide 25.0, Anion Gap 5, BUN 26 H, Creatinine 0.80, Estim Creat Clear Calc 57.76, Est GFR (MDRD) Af Amer 90, Est GFR (MDRD) Non-Af 75, BUN/Creatinine Ratio 32.5 H, Glucose 247 H, Calcium 8.2 L, Total Bilirubin 0.30, AST 15, ALT 25, Alkaline Phosphatase 52, Total Protein 5.9 L, Albumin 2.7 L, Globulin 3.2, Albumin/Globulin Ratio 0.8 L Current Medications Aspirin (Aspirin 81 Mg Tab.Chew) 81 mg PO DAILY [facility] Last Admin: 07/30/20 08:29 Dose: 81 mg Documented by: Brimonidine Tartrate (Brimonidine 0.2% 5ml Bottle) 1 drop EACH EYE BID [facility] Last Admin: 07/30/20 08:30 Dose: 1 drop Documented by: Calamine/Phenol (Menthol/Lanolin/Calamine/Znox 113 Gm Tube) 1 applic TOPICAL TID PRN; Protocol PRN Reason: Diaper Rash Last Admin: 07/29/20 18:48 Dose: 1 applicatio Documented by: Dexamethasone (Dexamethasone 4 Mg Tablet) 6 mg PO DAILY [facility] Stop: 08/04/20 10:01 Last Admin: 07/30/20 08:29 Dose: 6 mg Documented by: Docusate Sodium (Docusate Sodium 100 Mg Capsule) 100 mg PO BID PRN PRN PRN Reason: Constipation Enoxaparin Sodium (Enoxaparin 30 Mg/0.3 Ml Syringe) 30 mg SC BID [facility] Last Admin: 07/30/20 08:28 Dose: 30 mg Documented by: Ergocalciferol (Ergocalciferol 50,000 Unit Capsule) 50,000 unit PO Fr@1000 [place] Gabapentin (Gabapentin 100 Mg Capsule) 100 mg PO QHS [facility] Last Admin: 07/29/20 21:42 Dose: 100 mg Documented by: Sodium Chloride () 250 mls @ 15 mls/hr IV .[id number] PRN PRN Reason: Saline Flush Sodium Chloride () 250 mls @ 15 mls/hr IV .[id number] PRN PRN Reason: Additional IVPB Infusion Ceftriaxone Sodium (Rocephin) 1 gm in 50 mls @ 100 mls/hr IV Q24 [facility] Last Infusion: 07/29/20 10:18 Dose: Infused Documented by: Remdesivir 100 mg/ Sodium (Chloride) 250 mls @ 125 mls/hr IV DAILY [facility] Stop: 07/30/20 11:59 Last Infusion: 07/29/20 13:00 Dose: Infused Documented by: Insulin Human Lispro (Insulin Lispro 100 Unit/Ml Insuln.Pen) 0 unit SC ACHS [facility]; Protocol Last Admin: 07/30/20 06:48 Dose: 1 units Documented by: Latanoprost (Latanoprost 0.005% 1 Bottle) 1 drop EACH EYE QHS [facility] Last Admin: 07/29/20 21:37 Dose: 1 drop Documented by: Levothyroxine Sodium (Levothyroxine 100 Mcg Tablet) 100 mcg PO DAILY [facility] Last Admin: 07/29/20 09:06 Dose: 100 mcg Documented by: Metformin HCl (Metformin Hcl 500 Mg Tablet) 500 mg PO BIDCM [facility] Last Admin: 07/30/20 08:29 Dose: 500 mg Documented by: Nystatin (Nystatin Ointment) 1 applic TOPICAL BID [facility]; Protocol Last Admin: 07/30/20 08:30 Dose: 1 applicatio Documented by: Ondansetron HCl (Ondansetron 4 Mg/2 Ml Vial) 4 mg IV Q8H PRN PRN PRN Reason: NAUSEA/VOMITING Last Admin: 07/29/20 09:02 Dose: 4 mg Documented by: Pantoprazole Sodium (Pantoprazole Sodium 40 Mg Tablet) 40 mg PO DAILY [facility] Last Admin: 07/30/20 08:29 Dose: 40 mg Documented by: Sodium Chloride (0.9% Saline Lock 10 Ml Syringe) 10 - 40 ml IV UD PRN PRN Reason: SALINE FLUSH Last Admin: 07/29/20 21:33 Dose: 10 ml Documented by: Timolol Maleate (Timolol 0.5% 5ml Opth.Btl) 1 drop EACH EYE BID [facility] Last Admin: 07/30/20 08:31 Dose: 1 drop Documented by: Medical Necessity - Tobacco Use Smoking Status: Never smoker Assessment/Plan All Active Problems (Last Reviewed 05/30/18 @ 13:54 by Megan Rai) COVID-19 virus infection (Acute) This is a 75 years old female patient presented to the emergency room because of weakness and she was found to have COVID-19 pneumonia as well as acute cystitis. #1 acute COVID-19 pneumonia/acute hypoxic respiratory insufficiency: Remained on p.o. Decadron and remdesivir. Since yesterday evening, patient started to be more tachypneic, required oxygen of up to 3 L. Chest x-ray done today, showed no acute findings, official report is pending. Patient tested positive for COVID-19 on July 15, 2020. During this admission, COVID-19 antigen and PCR both came back negative. CTA chest reviewed. No PE. Infectious disease on the case. Plan to continue same treatment. #2 probable acute cystitis versus asymptomatic bacteriuria: She is on IV Rocephin. She has been afebrile, no leukocytosis. Urine culture revealed E. coli, pansensitive. #3 dehydration: Due to poor oral intake and infection. Baseline creatinine has been around 1.1-1.3, admission creatinine was 1.39 and today, it is 0.80 today, stable. No evidence of acute kidney injury. #4 encephalopathy: She remained alert and noted x3, intermittently disoriented. Possible baseline dementia cannot be ruled out. #5 Type 2 diabetes mellitus: Hemoglobin A1c 7.4%. Blood sugar has been range of 200s. She is on Metformin. Plan to continue same treatment. #6 history of thyroid cancer: Status post surgery, followed by iatrogenic hypothyroidism, currently on levothyroxine, stable. #7 chronic hemangioma of the liver: Stable. #8 DVT prophylaxis: Subcu Lovenox twice daily. This note was generated with [employer] dictation software. It may contain incorrect words, spelling, and punctuation that were not noted in checking the note before signing. Inpatient E&M: 72548 Subs Hosp L2
[2020-07-30] MEDS: Ceftriaxone 1 GM/50 ML BAG IV (10:23)
[2020-07-30] MEDS: Levothyroxine 100 MCG Tablet PO (10:23)
[2020-07-30] MEDS: 0.9% Saline Lock 10 ML Syringe IV (10:25)
--- NOTE | 2020-07-30 11:04 | PCM.PN.ID ---
Patient Problems: Active and Suspected Problems (Last Reviewed 05/30/18 @ 13:54 by Megan Rai) COVID-19 virus infection (Acute) Subjective: Feeling better, no fever - Physical Exam Vitals/I&O's: Vital Signs Temp Pulse Resp BP Pulse Ox 96.4 F L 59 L 18 120/76 95 07/30/20 10:22 07/30/20 10:22 07/30/20 10:22 07/30/20 10:22 07/30/20 10:22 Oxygen Flow Rate (L/min) 3 Oxygen Delivery Method Nasal Cannula Weight: 72.978 kg Body Mass Index (BMI) 25.9 Intake and Output for Last 24 Hours 07/28/20 07/29/20 07/30/20 23:59 23:59 23:59 Intake Total 400 / 400 400 / 400 150 / 150 Output Total 300 / 300 200 / 200 Balance 100 / 100 400 / 400 -50 / -50 General: Alert, Cooperative, No apparent distress Lungs: Clear to auscultation, Diminished Cardiovascular: Regular rate, Regular Rhythm Abdomen: Soft, Non Tender, Non-Distended Skin: No rashes Microbiology Past 72 Hours 07/26/20 16:00 Urine Catheter - Catheter Urine Culture - Final Escherichia coli 07/26/20 20:10 Blood Culture (Wb) - Left Hand Blood Culture - Preliminary No growth in 48 hours. 07/26/20 15:10 Blood Culture (Wb) - Right Forearm Blood Culture - Preliminary No growth in 48 hours. Laboratory Results 07/29/20 11:50: POC Glucose 319 H 07/29/20 16:02: POC Glucose 417 H 07/29/20 21:30: POC Glucose 376 H 07/30/20 05:08: WBC 9.8, RBC 4.51, Hgb 13.3, Hct 40.5, MCV 89.8, MCH 29.5, MCHC 32.8, RDW Std Deviation 49.7 H, RDW Coeff of Salvador 15.1 H, Plt Count 314, MPV 11.6 07/30/20 05:08: Sodium 139, Potassium 4.6, Chloride 109 H, Carbon Dioxide 25.0, Anion Gap 5, BUN 26 H, Creatinine 0.80, Estim Creat Clear Calc 57.76, Est GFR (MDRD) Af Amer 90, Est GFR (MDRD) Non-Af 75, BUN/Creatinine Ratio 32.5 H, Glucose 247 H, Calcium 8.2 L, Total Bilirubin 0.30, AST 15, ALT 25, Alkaline Phosphatase 52, Total Protein 5.9 L, Albumin 2.7 L, Globulin 3.2, Albumin/Globulin Ratio 0.8 L Current Medications Aspirin (Aspirin 81 Mg Tab.Chew) 81 mg PO DAILY [facility] Last Admin: 07/30/20 08:29 Dose: 81 mg Documented by: Brimonidine Tartrate (Brimonidine 0.2% 5ml Bottle) 1 drop EACH EYE BID [facility] Last Admin: 07/30/20 08:30 Dose: 1 drop Documented by: Calamine/Phenol (Menthol/Lanolin/Calamine/Znox 113 Gm Tube) 1 applic TOPICAL TID PRN; Protocol PRN Reason: Diaper Rash Last Admin: 07/29/20 18:48 Dose: 1 applicatio Documented by: Dexamethasone (Dexamethasone 4 Mg Tablet) 6 mg PO DAILY [facility] Stop: 08/04/20 10:01 Last Admin: 07/30/20 08:29 Dose: 6 mg Documented by: Docusate Sodium (Docusate Sodium 100 Mg Capsule) 100 mg PO BID PRN PRN PRN Reason: Constipation Enoxaparin Sodium (Enoxaparin 30 Mg/0.3 Ml Syringe) 30 mg SC BID [facility] Last Admin: 07/30/20 08:28 Dose: 30 mg Documented by: Ergocalciferol (Ergocalciferol 50,000 Unit Capsule) 50,000 unit PO Fr@1000 [facility] Gabapentin (Gabapentin 100 Mg Capsule) 100 mg PO QHS [facility] Last Admin: 07/29/20 21:42 Dose: 100 mg Documented by: Sodium Chloride () 250 mls @ 15 mls/hr IV .[id number] PRN PRN Reason: Saline Flush Sodium Chloride () 250 mls @ 15 mls/hr IV .[id number] PRN PRN Reason: Additional IVPB Infusion Remdesivir 100 mg/ Sodium (Chloride) 250 mls @ 125 mls/hr IV DAILY [facility] Stop: 07/30/20 11:59 Last Infusion: 07/29/20 13:00 Dose: Infused Documented by: Insulin Human Lispro (Insulin Lispro 100 Unit/Ml Insuln.Pen) 0 unit SC [facility]; Protocol Last Admin: 07/30/20 06:48 Dose: 1 units Documented by: Latanoprost (Latanoprost 0.005% 1 Bottle) 1 drop EACH EYE QHS [facility] Last Admin: 07/29/20 21:37 Dose: 1 drop Documented by: Levothyroxine Sodium (Levothyroxine 100 Mcg Tablet) 100 mcg PO DAILY [facility] Last Admin: 07/30/20 10:23 Dose: 100 mcg Documented by: Metformin HCl ([facility] Hcl 500 Mg Tablet) [facility] Last Admin: 07/30/20 08:29 Dose: 500 mg Documented by: Nystatin (Nystatin Ointment) 1 applic TOPICAL BID [facility]; Protocol Last Admin: 07/30/20 08:30 Dose: 1 applicatio Documented by: Ondansetron HCl (Ondansetron 4 Mg/2 Ml Vial) 4 mg IV Q8H PRN PRN PRN Reason: NAUSEA/VOMITING Last Admin: 07/29/20 09:02 Dose: 4 mg Documented by: Pantoprazole Sodium (Pantoprazole Sodium 40 Mg Tablet) 40 mg PO DAILY [facility] Last Admin: 07/30/20 08:29 Dose: 40 mg Documented by: Sodium Chloride (0.9% Saline Lock 10 Ml Syringe) 10 - 40 ml IV UD PRN PRN Reason: SALINE FLUSH Last Admin: 07/30/20 10:25 Dose: 10 ml Documented by: Timolol Maleate (Timolol 0.5% 5ml Opth.Btl) 1 drop EACH EYE BID [facility] Last Admin: 07/30/20 08:31 Dose: 1 drop Documented by: Medical Necessity - Tobacco Use Smoking Status: Never smoker Route of nutrition/ use of supplements: [] Nutritional Intake: [] IV Site: [] Spears Catheter: [] - Assessment/Plan Antibiotics: [] Assessment/Plan: [] Active and Suspected Problems (Last Reviewed 05/30/18 @ 13:54 by Megan Rai) COVID-19 virus infection (Acute) covid with hypoxia, dementia - covid (+) at [facility] on 07/15. On dex, remdesivir, lovenox 30mg bid. On ceftriaxone for ecoli in UCx but UA without pyuria. Lactate 2.4, d-dimer 3.4. CT showed no PE. Likely ok for discharge today or tomorrow to complete 10 total days of dex, 2 weeks of either xarelto 10mg daily or eliquis 2.5mg bid. Will stop ceftriaxone. Will follow
[2020-07-30 11:20] LABS: Bedside Glucose 211 mg/dL (70-110)
--- NOTE | 2020-07-30 12:06 | CASEMGMT ---
Addendum entered by Yany Wooten 07/30/20 14:58: Social Work Return call from Kendy who states both the [facility] have a bed available and can accept pt. JONY placed phone call to pt room and discussed need for SNF with pt. Pt stating she agrees she needs for SNF for rehabilitation and is choosing [facility]. Pt plans to return to [facility] when she is stronger. Phone call to Kendy and informed pt would like [facility]. Kendy requesting second negative covid test within 24 hours of admission. Will reevaluate pt for discharge tomorrow and if ready will request test. Plan: [facility], pending negative covid test [facility] Original Note: Social Work Per physician, pt not ready for discharge today. Phone call form Jenny at [facility]. They do have beds available and referral faxed. JONY noted pt did have positive Covid test on 07/15/20 taken at [facility]. Upon admission to [facility] on 07/26/20 pt tested negative for Covid. Pt positive test was 15 days ago. Phone call the Kendy, admission coordinator at the [facility] and inquired if they would consider taking pt due to the above circumstances. Kendy requested referral be faxed and will check with administration if they could accept pt. Pt would need a second negative covid test prior to discharge. Referral information faxed. JONY will await return call and determination from Kendy. [facility]
[2020-07-30 12:46] LABS: Bedside Glucose 302 mg/dL (70-110)
[2020-07-30 17:20] LABS: Bedside Glucose 434 mg/dL (70-110)
[2020-07-30] MEDS: Gabapentin 100 MG Capsule PO (20:34)
[2020-07-30] MEDS: Latanoprost 0.005% 1 Bottle 1 DRP EACH EYE (20:34)
[2020-07-30 22:01] LABS: Bedside Glucose 442 mg/dL (70-110)
[2020-07-31 02:58] VITALS: BP 128/76; PULSE 65; RESP 16; TEMP 35.8; O2SAT 97
[2020-07-31] MEDS: Insulin Lispro 100 UNIT/ML INSULN.PEN SC ×2 (06:11→12:22)
[2020-07-31 06:35] LABS: Bedside Glucose 286 mg/dL (70-110)
[2020-07-31 06:42] LABS: Hemoglobin 14.6 g/dL (12.0-15.0); Mean Corp Hgb Conc 32.4 g/dL (32-36); Mean Corpuscular Hgb 30.1 pg (27.0-32.0); Mean Corpuscular Volume 92.8 fL (81-99); Mean Platelet Vol. 11.8 fl (6.2-12.0); Platelet Count 296 K/mm3 (150-450); RBC Distribution Width CV 15.3 % (11.6-14.6); RBC Distribution Width SD 51.4 fl (35.1-43.9); Red Blood Count 4.85 M/mm3 (4.2-5.4); White Blood Count 12.7 K/mm3 (4.4-11.0)
[2020-07-31 07:07] LABS: ALB/GLOB Ratio 0.9 RATIO (0.9-2.4); AST(SGOT) 10 U/L (15-37); Alanine Aminotransfer ALT/SGPT 28 U/L (13-56); Albumin, Serum 2.8 g/dL (3.2-5.0); Alkaline Phosphatase 64 U/L (45-117); Anion Gap 4 (5-15); BUN 25 mg/dL (7-18); BUN/Creat Ratio 26.1 RATIO (10-20); Calcium,Total 8.6 mg/dL (8.5-10.1); Chloride 110 mmol/L (98-107); Creatinine, Serum 0.96 mg/dL (0.55-1.02); EST Glomerular Filtration Rate 61 mL/min (>60); Est Glom Filt Rate - Afr Amer 73 mL/min (>60); Estimated Creatinine Clearance 48.13 ml/min; Globulin 3.2 g/dL (2.2-4.2); Glucose 290 mg/dL (74-106); Potassium 4.8 mmol/L (3.5-5.1); Sodium Level 142 mmol/L (136-145)
[2020-07-31] MEDS: metFORMIN HCl 500 MG Tablet PO (09:11)
[2020-07-31] MEDS: Pantoprazole Sodium 40 MG Tablet PO (09:11)
[2020-07-31] MEDS: dexAMETHasone 4 MG Tablet 6 MG PO (09:11)
[2020-07-31] MEDS: Levothyroxine 100 MCG Tablet PO (09:11)
[2020-07-31] MEDS: Aspirin 81 MG TAB.CHEW PO (09:11)
[2020-07-31] MEDS: BRIMONIDINE 0.2% 5ML BOTTLE 1 DRP EACH EYE (09:12)
[2020-07-31] MEDS: Nystatin Ointment 1 APPLIC TOPICAL (09:12)
[2020-07-31] MEDS: Enoxaparin 30 MG/0.3 ML Syringe SC (09:12)
[2020-07-31] MEDS: Timolol 0.5% 5ML OPTH.BTL 1 DRP EACH EYE (09:14)
[2020-07-31 09:15] VITALS: BP 133/76; PULSE 70; RESP 16; TEMP 36.7; O2SAT 94
--- NOTE | 2020-07-31 10:26 | PCM.TXEXTCAR ---
- Diet 07/27/20 03:54 Diet: ADA diet, 2000 sosa. Is pt able to select menu?: Yes Diet Comments: PLEASE SEND ENSURE WITH MEALS - Wound(s) right and left groin Wound Type: opens areas - Suggestions for Active Care Change Position every (hours): 3 Hours to sit in a chair: 2 Times a day to sit in chair: 3 - Therapies Weight Bearing: Weight bearing as tolerated Physical Therapy: Eval and Treat Occupational Therapy: Eval and Treat - Allergies/Procedures Done in Hospital Allergies/Adverse Reactions: Allergies Penicillins Allergy (Verified 07/26/20 16:12) Unknown Sulfa (Sulfonamide Antibiotics) Allergy (Verified 07/26/20 16:12) Unknown - Type of Care/Length of Stay Estimated LOS: Convalescent Care Less Than 30 days Type of Care Needed: Skilled Rehab Potential: Fair Prognosis: Fair - Additional Orders/Day of Discharge Additional Orders: Continue COVID-19 isolation precautions for 4 days more to complete total of 20 days from when she tested positive. H&P will serve as current which was dated: 07/26/20 Day of Discharge: 07/31/20 - Dietary and Speech Recommendations Dietitian Recommendations/Changes: Continue regular diet and ONS w/ meals - Follow Up Care Primary Care Physician: Dann Muniz MD [Primary Care Provider] - Please follow up with your Primary Care Physician in: 1 week.
--- NOTE | 2020-07-31 12:24 | DS.PCM_ITS ---
Discharge Date and Diagnosis - Problem List Patient Problems: Active and Suspected Problems (Last Reviewed 05/30/18 @ 13:54 by Megan Rai) COVID-19 virus infection (Acute) Date of Admission: 07/26/20 Date of Discharge: 07/31/20 - Primary Discharge Diagnosis Acute Problems: Active Problems (Last Reviewed 05/30/18 @ 13:54 by Megan Rai) #1 acute COVID-19 pneumonia. #2 acute hypoxic respiratory sufficiency. #3 E. coli acute cystitis versus bacteriuria. #4 dehydration. #5 encephalopathy, with possible baseline dementia. - Secondary Discharge Diagnosis Chronic Problems: Chronic Problems (Last Reviewed 05/30/18 @ 13:54 by Megan Rai) Dementia (Chronic) Anxiety disorder (Chronic) Thyroid cancer (Chronic) Liver mass (Chronic) Left kidney mass (Chronic) Hemangioma of liver (Chronic) Hospital Course and Treatment Imaging Results: Clinical Impression(s) from Imaging Studies Chest X-Ray 07/26/20 15:30 IMPRESSION: Bibasilar atelectasis. Electronically Signed: Julián Buckner MD (Brooks) at 15:51 EST , Service support , Chest CTA 07/26/20 22:28 IMPRESSION: Normal CTA chest examination, without a demonstrated pulmonary embolism, aortic aneurysm, or aortic dissection. Small patchy and less opacities, which are likely represent COVID-19 pneumonia. Atelectasis and/or small infiltrates in the posterior lung bases. Atherosclerosis. Electronically Signed: Raj Miramontes MD at 0:58 EST , Service support , Chest X-Ray 07/30/20 08:48 IMPRESSION: Since prior study, there has been progressive infiltrate in the left lower lobe and the lateral distribution as well as mild increased markings at the right lung base. Electronically Signed: Oj Durham, at 10:30 EST , Service support , Dr. Andrea, infectious disease. Operations: None Procedures: None Summary of Care Provided: Patient seen and examined on the day of discharge and appeared to be stable to be discharged to retirement facility. She denied any complaints on the day of discharge. She was off oxygen, afebrile, other vital signs are stable. The patient is a 75 year old F presented to the emergency room because of weakness and fatigue, found to have COVID-19 pneumonia as well as E. coli acute cystitis. Her chest x-ray revealed bilateral basilar atelectasis, there was no obvious infiltrate or consolidation. Her routine blood work was remarkable for mild dehydration with creatinine of 1.39, otherwise unremarkable. Patient tested positive for COVID-19 on July 11, 2020. During this hospital stay, COVID-19 PCR was negative. Infectious disease consulted and recommended to start patient on dexamethasone and remdesivir as well has subcu Lovenox twice daily. Patient was started on IV Rocephin for acute cystitis. CTA chest done which showed no PE or dissection, revealed small patchy opacities bilaterally consistent with COVID-19 pneumonia. In the first 2 days, patient required no oxygen and she was stable. For 1 day, she required oxygen of up to 3 L and then she was able to come off oxygen next day. With treatment, her symptoms improved. Patient had intermittent disorientation which is attributed to probable baseline dementia. Her blood culture showed no growth in 5 days. Pneumococcal and Legionella antigen were negative. Urine culture revealed E. coli. She completed 5 days of IV Rocephin. Patient discharged to retirement facility in a stable condition, no antibiotic given upon discharge, she did not require oxygen, discharged on dexamethasone to complete total of 10 days of treatment, discharged on Eliquis 2.5 mg p.o. twice daily for 2 weeks, instr uctions were given to continue COVID-19 isolation precautions for this patient for 4 days more to complete total of 20 days from the day she tested positive for COVID-19, recommended from PCP in 1 week. Patient Problems: Active and Suspected Problems (Last Reviewed 05/30/18 @ 13:54 by Megan Rai) COVID-19 virus infection (Acute) - Physical Exam Vitals/I&O's: Vital Signs Temp Pulse Resp BP Pulse Ox 98.1 F 70 16 133/76 H 94 07/31/20 09:15 07/31/20 09:15 07/31/20 09:15 07/31/20 09:15 07/31/20 09:15 Oxygen Flow Rate (L/min) [ 3 AMBULATION with Oxygen] Oxygen Flow Rate (L/min) 3 Oxygen Delivery Method Room Air Weight: 160 lb 14.223 oz Body Mass Index (BMI) 25.9 Intake and Output for Last 24 Hours 07/29/20 07/30/20 07/31/20 23:59 23:59 23:59 Intake Total 400 / 400 450 / 450 0 / 0 Output Total 200 / 200 450 / 450 Balance 400 / 400 250 / 250 -450 / -450 General: Alert, Cooperative, No apparent distress HEENT: Atraumatic, PERRLA, EOMI, Normocephalic Oral: Moist Mucosa, No Gingival or Mucosal Lesions/ Ulcerations Neck: Supple, No JVD, Negative Carotid Bruits, Trachea Midline, Thyroid Normal Size and Texture Lungs: Clear to auscultation, Normal air movement, No rhonchi, No wheeze, No rales, Diminished Cardiovascular: Regular rate, Regular Rhythm, Normal S1, Normal S2, PMI Normal Abdomen: Bowel Sounds Present, Soft, Non Tender, Non-Distended, No Hepato- splenomegaly Extremities: No clubbing, No cyanosis, No edema Skin: No rashes, No breakdown Lymphatic: No Cervical, Supraclavicular, or Inguinal Adenopathy Neurological: Cranial nerves II-XII grossly intact, Neuro grossly intact Psych/Mental Status: Normal Affect, Appropriate Microbiology Past 72 Hours 07/31/20 11:00 Mucosa - Nose SARS-CoV-2 Antigen (Rapid) - Final 07/26/20 16:00 Urine Catheter - Catheter Urine Culture - Final Escherichia coli 07/26/20 20:10 Blood Culture (Wb) - Left Hand Blood Culture - Preliminary No growth in 48 hours. 07/26/20 15:10 Blood Culture (Wb) - Right Forearm Blood Culture - Preliminary No growth in 48 hours. Laboratory Results 07/30/20 12:16: POC Glucose 302 H 07/30/20 16:37: POC Glucose 434 H 07/30/20 21:52: POC Glucose 442 H 07/31/20 06:10: WBC 12.7 H, RBC 4.85, Hgb 14.6, Hct 45.0, MCV 92.8, MCH 30.1, MCHC 32.4, RDW Std Deviation 51.4 H, RDW Coeff of [place] 15.3 H, Plt Count 296, MPV 11.8 07/31/20 06:10: Sodium 142, Potassium 4.8, Chloride 110 H, Carbon Dioxide 28.0, Anion Gap 4 L, BUN 25 H, Creatinine 0.96, Estim Creat Clear Calc 48.13, Est GFR (MDRD) Af Amer 73, Est GFR (MDRD) Non-Af 61, BUN/Creatinine Ratio 26.1 H, Glucose 290 H, Calcium 8.6, Total Bilirubin 0.30, AST 10 L, ALT 28, Alkaline Phosphatase 64, Total Protein 6.0 L, Albumin 2.8 L, Globulin 3.2, Albumin/Globulin Ratio 0.9 07/31/20 06:10: POC Glucose 286 H Current Medications Aspirin (Aspirin 81 Mg Tab.Chew) 81 mg PO DAILY [facility] Last Admin: 07/31/20 09:11 Dose: 81 mg Documented by: Brimonidine Tartrate (Brimonidine 0.2% 5ml Bottle) 1 drop EACH EYE BID [facility] Last Admin: 07/31/20 09:12 Dose: 1 drop Documented by: Calamine/Phenol (Menthol/Lanolin/Calamine/Znox 113 Gm Tube) 1 applic TOPICAL TID PRN; Protocol PRN Reason: Diaper Rash Last Admin: 07/29/20 18:48 Dose: 1 applicatio Documented by: Dexamethasone (Dexamethasone 4 Mg Tablet) 6 mg PO DAILY [facility] Stop: 08/04/20 10:01 Last Admin: 07/31/20 09:11 Dose: 6 mg Documented by: Dextrose (Dextrose 50%-Water 25 Gm/50 Ml Disp.Syrin) 0 gm IV X1 PRN; Protocol PRN Reason: Hypoglycemia Docusate Sodium (Docusate Sodium 100 Mg Capsule) 100 mg PO BID PRN PRN PRN Reason: Constipation Enoxaparin Sodium (Enoxaparin 30 Mg/0.3 Ml Syringe) 30 mg SC BID [facility] Last Admin: 07/31/20 09:12 Dose: 30 mg Documented by: Ergocalciferol (Ergocalciferol 50,000 Unit Capsule) 50,000 unit PO Fr@1000 [facility] Last Admin: 07/31/20 09:11 Dose: 50,000 unit Documented by: Gabapentin (Gabapentin 100 Mg Capsule) 100 mg PO QHS [facility] Last Admin: 07/30/20 20:34 Dose: 100 mg Documented by: Glucagon (Glucagon 1 Mg/Ml Syringe) 1 mg IM .X1 PRN PRN Reason: Hypoglycemia Sodium Chloride () 250 mls @ 15 mls/hr IV .[id number] PRN PRN Reason: Saline Flush Sodium Chloride () 250 mls @ 15 mls/hr IV .[id number] PRN PRN Reason: Additional IVPB Infusion Insulin Glargine (Insulin Glargine 100 Units/Ml Pen) 8 units SC BID [facility] Last Admin: 07/31/20 12:22 Dose: 8 u Documented by: Insulin Human Lispro (Insulin Lispro 100 Unit/Ml Insuln.Pen) 0 unit SC ACHS [facility]; Protocol Last Admin: 07/31/20 12:22 Dose: 8 units Documented by: Latanoprost (Latanoprost 0.005% 1 Bottle) 1 drop EACH EYE QHS [facility] Last Admin: 07/30/20 20:34 Dose: 1 drop Documented by: Levothyroxine Sodium (Levothyroxine 100 Mcg Tablet) 100 mcg PO DAILY [facility] Last Admin: 07/31/20 09:11 Dose: 100 mcg Documented by: Metformin HCl (Met[facility] Hcl 500 Mg Tablet) [facility] Admin: 07/31/20 09:11 Dose: 500 mg Documented by: Nystatin (Nystatin Ointment) 1 applic TOPICAL BID [facility]; Protocol Last Admin: 07/31/20 09:12 Dose: 1 applicatio Documented by: Ondansetron HCl (Ondansetron 4 Mg/2 Ml Vial) 4 mg IV Q8H PRN PRN PRN Reason: NAUSEA/VOMITING Last Admin: 07/29/20 09:02 Dose: 4 mg Documented by: Pantoprazole Sodium (Pantoprazole Sodium 40 Mg Tablet) 40 mg PO DAILY [facility] Last Admin: 07/31/20 09:11 Dose: 40 mg Documented by: Sodium Chloride (0.9% Saline Lock 10 Ml Syringe) 10 - 40 ml IV UD PRN PRN Reason: SALINE FLUSH Last Admin: 07/30/20 10:25 Dose: 10 ml Documented by: Timolol Maleate (Timolol 0.5% 5ml Opth.Btl) 1 drop EACH EYE BID [facility] Last Admin: 07/31/20 09:14 Dose: 1 drop Documented by: Home Medications: Medications to take at Discharge Aspirin [Aspirin, Baby] 81 mg PO DAILY@0800 03/09/19 Benztropine Mesylate 1 mg PO BID 03/09/19 Brimonidine Tartrate/Timolol [Combigan 0.2%-0.5% Eye Drops] 1 drp OP BID 03/09/19 Docusate Sodium [Dok] 100 mg PO BID PRN 03/09/19 Ergocalciferol (Vitamin D2) [Vitamin D2] 50,000 unit PO FR 03/09/19 Latanoprost 0.005% [Xalatan Opthalmic] 1 drp EACH EYE QHS 03/09/19 Levothyroxine [Synthroid] 100 mcg PO DAILY 03/09/19 Mirtazapine [Remeron] 15 mg PO QHS 03/09/19 Olanzapine [Zyprexa] 2.5 mg PO QHS 03/09/19 Pantoprazole Sodium [Protonix] 40 mg PO BID 03/09/19 Hydrocodone/Acetaminophen [[place] 5-325 Tablet] 1 ea PO Q8H PRN PRN #10 tab 03/13/19 Gabapentin [Neurontin] 100 mg PO QHS 07/26/20 Metformin HCl 500 mg PO DAILY 07/26/20 Apixaban [Eliquis] 2.5 mg PO BID #28 tab 07/31/20 Dexamethasone 6 mg PO DAILY #6 tab 07/31/20 Following Prescriptions Were Given to Patient: Dexamethasone 6 mg PO DAILY #6 tab Prescription Printed Apixaban [Eliquis] 2.5 mg PO BID #28 tab Prescription Printed Primary Care Physician: Dann Muniz MD [Primary Care Provider] - Please follow up with your Primary Care Physician in: 1 week. Disposition: Halfway facility Minutes spent on discharge:: 32 Patient Condition:: Stable Medical Necessity - Tobacco Use Smoking Status: Never smoker Meaningful Use Info Meaningful Use Diagnoses (Choose all that apply): None applicable Inpatient E&M: 68502 Disch Hosp
[2020-07-31 12:30] LABS: Bedside Glucose 347 mg/dL (70-110)
[2020-07-31 15:00] VITALS: O2SAT 94
[2020-07-31 15:12] VITALS: BP 125/72; PULSE 68; RESP 16; TEMP 36.7; O2SAT 94
--- NOTE | 2020-07-31 15:36 | CASEMGMT ---
Social Work Pt is ready for discharge today. Negative Covid test obtained. 7000 Convalescent form completed in [facility] system and this along with orders faxed to [facility]. Transportation arranged for 4:00 stretcher pickle processor by [facility]. Phone call to pt room and no answer. SW requested RN to inform pt of d/c time when he enters room. Ernestina at [facility] updated that pt will d/c to [facility] today. left with SRINIVAS Daly and informed of d/c and Discharge instructions faxed. Nursing updated on d/c plan. MAYCO Wood
== END 2020-07-31 17:25 | disposition skilled nursing facility (03) | DRG 177 ==
LOC: ED 16:33 → MS2 17:00
PROVIDERS: Internal Medicine Infectious Disease; Admitting Provider Internal Medicine; Emergency Provider Emergency Medicine; PCP Family Medicine; Visit Provider Hospitalist
DX: U07.1 COVID-19 (principal); N17.0 Acute kidney failure with tubular necrosis; J12.89 Other viral pneumonia; E87.2 Acidosis; J98.11 Atelectasis; N17.9 Acute kidney failure, unspecified; N30.00 Acute cystitis without hematuria; G93.40 Encephalopathy, unspecified; B96.20 Unspecified Escherichia coli [E. coli] as the cause of diseases classified elsewhere; E11.65 Type 2 diabetes mellitus with hyperglycemia; E86.0 Dehydration; F41.9 Anxiety disorder, unspecified; F03.90 Unspecified dementia, unspecified severity, without behavioral disturbance, psychotic disturbance, mood disturbance, and anxiety; D18.03 Hemangioma of intra-abdominal structures; E89.0 Postprocedural hypothyroidism; K59.09 Other constipation; E86.1 Hypovolemia; E11.22 Type 2 diabetes mellitus with diabetic chronic kidney disease; N18.30 Chronic kidney disease, stage 3 unspecified; N28.1 Cyst of kidney, acquired; L30.4 Erythema intertrigo; Z79.890 Hormone replacement therapy; Z85.850 Personal history of malignant neoplasm of thyroid; Z87.891 Personal history of nicotine dependence; Z90.710 Acquired absence of both cervix and uterus; R09.02 Hypoxemia; N28.89 Other specified disorders of kidney and ureter; R16.0 Hepatomegaly, not elsewhere classified
CPT/HCPCS: 36415; 71045; 71275; 80053; 81001; 82550; 82962; 83036; 83605; 83615; 83690; 83735; 83880; 84075; 84145; 84484; 85025; 85027; 85379; 85384; 85610; 86140; 87040; 87077; 87086; 87088; 87186; 87426; 87449; 87633; 87635; 93005; 97116; 97162; 97166; 97530; 97802; 99251; 99285; J7030; J7050; Q9967; A4216; G0463; J2405; U0002

== ENCOUNTER 2021-07-23 12:29 | Emergency (ER) | payer MEDICARE, MEDICAID, SELFPAY ==
[2021-07-23] VITALS (14 sets, daily range): BP systolic 102–119; BP diastolic 65–91; PULSE 72–99; RESP 18–25; TEMP 36.6–38.2; O2SAT 92–97; BMI 26.6
--- NOTE | 2021-07-23 15:09 | EKG12_ITS ---
Test Reason : SOB Blood Pressure : / mmHG Vent. Rate : 092 BPM Atrial Rate : 092 BPM P-R Int : 140 ms QRS Dur : 100 ms QT Int : 414 ms P-R-T Axes : 042 -13 008 degrees QTc Int : 511 ms Normal sinus rhythm Normal ECG Confirmed by ARMANDO COHEN, SERA ([id number]), newspaper photo editor REGAN BARKLEY ([id number]) on 07/26/2021 9:09:49 AM Referred By: LOAN Confirmed By:LASHANDA ROBERTS MD
--- NOTE | 2021-07-23 15:16 | ED.VIS.DYS ---
HPI History of Present Illness Chief Complaint: Shortness of Breath Narrative Narrative: 76-year-old female presenting with a cough, shortness of breath, fever from her assisted living facility. The patient guardian states that this is only been going on for about 3 days. She seems a little bit more confused than usual. Patient's guardian states that she had COVID-19 last July. She has since been vaccinated. She is currently due for her booster. She states to her knowledge she does not believe that she does get UTIs. Patient has no known sick contacts. [facility] Medical History Anxiety disorder Knee contusion removed eye lens bilateral 2001 Thyroid cancer Home Medications benztropine 1 mg PO BID 03/09/19 [History Last Taken 07/23/21] latanoprost 1 drp EACH EYE QHS 03/09/19 [History Last Taken 07/22/21] mirtazapine 7.5 mg PO QHS 03/09/19 [History Last Taken 07/22/21] gabapentin 100 mg PO DAILY 07/26/20 [History Last Taken 07/23/21] aspirin 81 mg PO DAILY@0800 07/23/21 [History Last Taken 07/23/21] brimonidine-timolol [Combigan] 1 drp EACH EYE BID 07/23/21 [History Last Taken 07/23/21] cholecalciferol (vitamin D3) 25 mcg PO DAILY 07/23/21 [History Last Taken 07/23/21] levothyroxine 100 mcg PO DAILY 07/23/21 [History Last Taken 07/23/21] metformin 500 mg PO DAILY 07/23/21 [History Last Taken 07/23/21] olanzapine [Zyprexa] 2.5 mg PO QHS 07/23/21 [History Last Taken 07/22/21] omeprazole 20 mg PO DAILY 07/23/21 [History Last Taken 07/23/21] Allergy/AdvReac Type Severity Reaction Status Date / Time Penicillins Allergy Unknown Verified 07/23/21 14:43 Sulfa (Sulfonamide Allergy Unknown Verified 07/23/21 14:43 Antibiotics) Family History Other no family history Surgical History History of hysterectomy History of thyroidectomy Social History Smoking Status: Never smoker ROS ROS ED Constitutional Constitutional ED: Reports chills and fever(s) Eyes Eyes: Denies blurry vision or diplopia ENT ENT ED: Reports rhinorrhea Cardiovascular Cardiovascular: Denies chest pain or palpitations Respiratory/Chest Respiratory/Chest: Reports cough, dyspnea and dyspnea on exertion Gastrointestinal Gastrointestinal: Denies abdominal pain, nausea or vomiting Genitourinary Genitourinary ED: Denies dysuria or hematuria Musculoskeletal Musculoskeletal: Reports myalgias; Denies arthralgias or neck pain Integumentary Denies Abrasions or rash Neurologic Neurologic: Denies headache(s) or paresthesias EXAM Physical Exam Const Vital Signs: 07/23/21 12:34 07/23/21 12:37 07/23/21 14:40 Temperature 100.8 F H 100.8 F H 98.9 F Temperature Source Temporal Temporal Temporal Pulse Rate 99 95 99 Respiratory Rate 22 H 22 H 20 H Respiratory Effort Respiratory Depth Respiratory Pattern Blood Pressure 116/70 116/70 102/91 H Blood Pressure Mean 85 85 94 Pulse Ox 97 97 92 Oxygen Delivery Method Room Air Room Air Room Air 07/23/21 14:45 07/23/21 15:18 07/23/21 16:05 Temperature 98.7 F 98.7 F Temperature Source Temporal Temporal Pulse Rate 93 89 Respiratory Rate 18 18 Respiratory Effort Short of Breath Respiratory Depth Normal Respiratory Pattern Tachypnea Blood Pressure 113/75 106/65 Blood Pressure Mean 87 78 Pulse Ox 92 95 Oxygen Delivery Method Room Air Room Air Room Air 07/23/21 16:24 07/23/21 17:21 07/23/21 18:09 Temperature 98.1 F 98.9 F Temperature Source Temporal Temporal Pulse Rate 87 86 Respiratory Rate 18 25 H Respiratory Effort Respiratory Depth Respiratory Pattern Blood Pressure 114/87 H 109/74 Blood Pressure Mean 96 85 Pulse Ox 94 95 Oxygen Delivery Method Room Air 07/23/21 18:57 07/23/21 20:25 07/23/21 20:26 Temperature 97.8 F 97.8 F 97.8 F Temperature Source Temporal Temporal Temporal Pulse Rate 98 74 Respiratory Rate 18 18 Respiratory Effort Respiratory Depth Respiratory Pattern Blood Pressure 119/72 111/82 H Blood Pressure Mean 87 91 Pulse Ox 95 93 Oxygen Delivery Method Room Air Room Air 07/23/21 20:50 Temperature 98.1 F Temperature Source Pulse Rate 72 Respiratory Rate 18 Respiratory Effort Respiratory Depth Respiratory Pattern Blood Pressure 118/74 Blood Pressure Mean Pulse Ox 94 Oxygen Delivery Method Positive well nourished General Appearance ED: NAD; Negative for pallor HEENT Reports moist mucous membranes atraumatic Eyes PERRL and EOMs intact bilaterally Neck no lymphadenopathy and supple Resp Auscultation: diminished lung sounds left Cardio regular rhythm Rate: tachycardic GI non-tender and non-distended Palpation: soft Neuro CN's II-XII intact bilaterally Sensorium / Orientation: alert Psych Attitude: No agitated Mood & Affect: Negative for depressed or tearful Skin General Skin Exam: Negative for jaundice or pallor Lesions: no lesions Rashes: no rashes MDM MDM MDM Narrative Medical decision making narrative: 76-year-old female presenting for fever and cough with congestion. Rapid Covid is negative. Sepsis work-up obtained. Patient has leukocytosis of 14.3 however hemoglobin are stable. Coagulation studies normal. Creatinine slightly elevated 1.10. Patient was given a liter of IV fluids. Lactic acid was negative. Urinalysis shows no sign of infection. Respiratory panel and Covid PCR are both negative. Rapid flu did show positive for influenza B, but with a negative respiratory panel I think this is unlikely to be influenza. Patient is outside the treatment window for influenza either way. Chest x-ray my interpretation shows no acute cardiopulmonary process and radiologist agrees. EKG is sinus rhythm with a ventricular rate of 92 bpm without sign of ischemic pain. Troponin is negative. Given patient's negative work-up I spoke with Dr. Jones who is on-call for her primary care physician. She will be discharged back to her nursing facility. Impression: 1. Viral syndrome Lab Data Attestation: I reviewed the patient's lab results. Labs: Laboratory Results - last 24 hr 07/23/21 07/23/21 07/23/21 15:15 15:30 15:30 WBC 14.3 H RBC 4.62 Hgb 14.0 Hct 42.3 MCV 91.6 MCH 30.3 MCHC 33.1 RDW Std Deviation 50.4 H RDW Coeff of [place] 15.3 H Plt Count 246 MPV 11.5 Immature Gran % (Auto) 0.600 Neut % (Auto) 84.3 H Lymph % (Auto) 7.1 L [place] % (Auto) 7.6 Eos % (Auto) 0.1 Baso % (Auto) 0.3 Absolute Neuts (auto) 12.0 H Absolute Lymphs (auto) 1.01 Nucleated RBC % 0 PT 13.3 INR 1.1 APTT 27.9 Sodium Potassium Chloride Carbon Dioxide Anion Gap BUN Creatinine Estim Creat Clear Calc Est GFR (MDRD) Af Amer Est GFR (MDRD) Non-Af BUN/Creatinine Ratio Glucose Lactic Acid Calcium Total Bilirubin AST ALT Alkaline Phosphatase Troponin I High Sens Total Protein Albumin Globulin Albumin/Globulin Ratio Urine Color Urine Clarity Urine pH Ur Specific [place] Urine Protein Urine Glucose (UA) Urine Ketones Urine Occult Blood Urine Nitrite Urine Bilirubin Urine Urobilinogen Ur Leukocyte Esterase Urine RBC Urine WBC Ur Squamous Epith Cells Urine Bacteria Urine Mucus COVID-19 (ORA) Not Detected 07/23/21 07/23/21 07/23/21 15:30 15:30 15:35 WBC RBC Hgb Hct MCV MCH MCHC RDW Std Deviation RDW Coeff of [place] Plt Count MPV Immature Gran % (Auto) Neut % (Auto) Lymph % (Auto) [place] % (Auto) Eos % (Auto) Baso % (Auto) Absolute Neuts (auto) Absolute Lymphs (auto) Nucleated RBC % PT INR APTT Sodium 138 Potassium 4.2 Chloride 105 Carbon Dioxide 24.0 Anion Gap 9 BUN 22 H Creatinine 1.27 H Estim Creat Clear Calc 34.44 Est GFR (MDRD) Af Amer 53 L Est GFR (MDRD) Non-Af 44 L BUN/Creatinine Ratio 17.3 Glucose 256 H Lactic Acid Cancelled Calcium 9.2 Total Bilirubin 1.10 H AST 18 ALT 28 Alkaline Phosphatase 94 Troponin I High Sens 6 Total Protein 8.1 Albumin 3.5 Globulin 4.6 H Albumin/Globulin Ratio 0.8 L Urine Color Urine Clarity Urine pH Ur Specific [place] Urine Protein Urine Glucose (UA) Urine Ketones Urine Occult Blood Urine Nitrite Urine Bilirubin Urine Urobilinogen Ur Leukocyte Esterase Urine RBC Urine WBC Ur Squamous Epith Cells Urine Bacteria Urine Mucus COVID-19 ([facility]A) Cancelled 07/23/21 07/23/21 16:20 17:00 WBC RBC Hgb Hct MCV MCH MCHC RDW Std Deviation RDW Coeff of [place] Plt Count MPV Immature Gran % (Auto) Neut % (Auto) Lymph % (Auto) [place] % (Auto) Eos % (Auto) Baso % (Auto) Absolute Neuts (auto) Absolute Lymphs (auto) Nucleated RBC % PT INR APTT Sodium Potassium Chloride Carbon Dioxide Anion Gap BUN Creatinine Estim Creat Clear Calc Est GFR (MDRD) Af Amer Est GFR (MDRD) Non-Af BUN/Creatinine Ratio Glucose Lactic Acid 1.9 Calcium Total Bilirubin AST ALT Alkaline Phosphatase Troponin I High Sens Total Protein Albumin Globulin Albumin/Globulin Ratio Urine Color Yellow Urine Clarity Clear Urine pH 5.0 Ur Specific [place] 1.020 Urine Protein 30 H Urine Glucose (UA) 250 H Urine Ketones 5 H Urine Occult Blood 10 H Urine Nitrite Negative Urine Bilirubin Negative Urine Urobilinogen 1 H Ur Leukocyte Esterase Negative Urine RBC 0 SEEN Urine WBC 0 SEEN Ur Squamous Epith Cells 0 SEEN Urine Bacteria 0 SEEN Urine Mucus 0 SEEN COVID-19 ([facility]) Radiography Diagnostic Testing: Clinical Impression(s) from Imaging Studies Chest X-Ray 07/23/21 16:30 IMPRESSION: There are no acute findings. Electronically Signed: Everette Cerda MD at 17:23 EST , Service support , Discharge Plan Triage Chief Complaint: Shortness of Breath ED Provider: Ziggy Baum Dx/Rx/DC Orders Instructions: ED Viral Syndrome (Adult) Prescriptions: No Action benztropine 1 MG tablet 1 mg PO BID RF: 0 latanoprost 1 DROP bottle 1 drp EACH EYE QHS RF: 0 mirtazapine 15 MG tablet 7.5 mg PO QHS RF: 0 gabapentin 100 MG capsule 100 mg PO DAILY RF: 0 olanzapine [Zyprexa] 2.5 mg Tablet 2.5 mg PO QHS RF: 0 aspirin 81 mg tablet,delayed release (DR/EC) 81 mg PO DAILY@0800 RF: 0 levothyroxine 100 mcg Tablet 100 mcg PO DAILY RF: 0 omeprazole 20 mg Capsule,Delayed Release(Dr/Ec) 20 mg PO DAILY RF: 0 metformin 500 mg Tablet Extended Release 24 Hr 500 mg PO DAILY RF: 0 cholecalciferol (vitamin D3) 25 mcg (1,000 unit) Tablet 25 mcg PO DAILY RF: 0 Combigan 0.2-0.5 % Drops 1 drp EACH EYE BID RF: 0 Primary Care Provider: Dann Muniz Referrals: Dann Muniz MD [Primary Care Provider] - Disposition Disposition: Home, Self Care
[2021-07-23 15:42] LABS: Absolute Lymphocyte Count 1.01 X10^3/uL (0.83-4.51); Basophil# 0.04 X10^3/uL; Basophil% 0.3 % (0-1); Eosinophil# 0.01 X10^3/uL; Eosinophils% 0.1 % (0-5); Hematocrit 42.3 % (37-47); Lymphocyte # 1.01 X10^3/ul (0.83-4.51); Lymphocyte % 7.1 % (19-41); Mean Corp Hgb Conc 33.1 g/dL (32-36); Mean Corpuscular Hgb 30.3 pg (27.0-32.0); Mean Corpuscular Volume 91.6 fL (81-99); Mean Platelet Vol. 11.5 fl (6.2-12.0); Monocyte# 1.09 X10^3/uL; Monocyte% 7.6 % (0-10); NRBC Flagged by Analyzer 0 % (0-5); Neutrophil # 12.02 X10^3/uL (2.7-7.7); Neutrophil % 84.3 % (47-70); Platelet Count 246 K/mm3 (150-450); RBC Distribution Width CV 15.3 % (11.6-14.6); RBC Distribution Width SD 50.4 fl (35.1-43.9); Red Blood Count 4.62 M/mm3 (4.2-5.4); White Blood Count 14.3 K/mm3 (4.4-11.0)
[2021-07-23] MEDS: 0.9% Normal Saline 1,000 ML 999 ML IV (15:48)
[2021-07-23 15:52] LABS: International Normalized Ratio 1.1; Prothrombin Time (Protime)PT. 13.3 SECONDS (11.7-14.9)
[2021-07-23 15:53] LABS: Partial Thromboplast Time 27.9 Seconds (24.1-36.2)
[2021-07-23 16:03] LABS: ALB/GLOB Ratio 0.8 RATIO (0.9-2.4); AST(SGOT) 18 U/L (15-37); Alanine Aminotransfer ALT/SGPT 28 U/L (13-56); Albumin, Serum 3.5 g/dL (3.2-5.0); Alkaline Phosphatase 94 U/L (45-117); Anion Gap 9 (5-15); BUN 22 mg/dL (7-18); BUN/Creat Ratio 17.3 RATIO (10-20); Calcium,Total 9.2 mg/dL (8.5-10.1); Chloride 105 mmol/L (98-107); Creatinine, Serum 1.27 mg/dL (0.55-1.02); EST Glomerular Filtration Rate 44 mL/min (>60); Est Glom Filt Rate - Afr Amer 53 mL/min (>60); Estimated Creatinine Clearance 34.44 ml/min; Globulin 4.6 g/dL (2.2-4.2); Glucose 256 mg/dL (74-106); Potassium 4.2 mmol/L (3.5-5.1); Protein, Total 8.1 g/dL (6.4-8.2); Sodium Level 138 mmol/L (136-145); Troponin-I HS 6 pg/mL (3.0-54.0)
--- NOTE | 2021-07-23 16:30 | RAD_ITS ---
STUDY: X-RAY CHEST REASON FOR EXAM: Female, 76 years old. Technologist Notes PT BROUGHT IN FROM [facility] FOR SOB, COUGH AND FEVER cough TECHNIQUE: XR Chest 1 View COMPARISON: 07.30.20 FINDINGS: There is no demonstrated pleural abnormality. Normal size heart. Normal mediastinum and lele. Normal visualized pulmonary arteries. There is atherosclerotic calcification of the aortic arch with tortuosity. There are diffuse degenerative changes of the visualized thoracic spine. There is degenerative osteoarthritis of the bilateral shoulders. There is no demonstrated abnormality of the visualized soft tissue structures of the upper abdomen. RAD/Chest 1 View (Portable) IMPRESSION: There are no acute findings. Electronically Signed: Everette Cerda MD at 17:23 EST , Service support ,
[2021-07-23 16:37] LABS: Bacteria 0 SEEN /hpf (None Seen); Mucous, Urine 0 SEEN /hpf (<or=2+); Red Blood Cells-Urine 0 SEEN /hpf (0-5); Squamous Epithelial Cells - UA 0 SEEN /hpf (5-10); White Blood Cells 0 SEEN /hpf (0-5)
[2021-07-23 17:46] LABS: Color, Urine Yellow (Yellow); Glucose, Dipstick 250 mg/dl (Normal); Ketone-Dipstick 5 mg/dl (Negative); Leukocyte Esterase-Dipstick Negative /ul (Negative); Nitrite-Dipstick Negative (Negative); Occult Blood-Urine 10 /ul (Negative); Protein-Dipstick 30 mg/dl (Negative); Urine Bilirubin Dipstick Negative (Negative); Urine Clarity Clear (Clear); Urine Urobilinogen 1 mg/dl (Normal)
[2021-07-23 17:56] LABS: Lactic Acid 1.9 mmol/L (0.4-1.9)
== END 2021-07-24 02:36 | disposition home or self-care (01) ==
PROVIDERS: Emergency Provider Student in an Organized Health Care Education/Training Program; PCP Family Medicine
DX: B34.9 Viral infection, unspecified (principal); F41.9 Anxiety disorder, unspecified; Z79.82 Long term (current) use of aspirin; Z79.84 Long term (current) use of oral hypoglycemic drugs; Z85.850 Personal history of malignant neoplasm of thyroid
CPT/HCPCS: 71045; 80053; 81001; 83605; 84484; 85025; 85610; 85730; 87040; 87086; 87426; 87633; 87635; 87804; 93005; 96360; 99285; J7030; U0005; U0003

== ENCOUNTER 2022-03-13 08:59 | Emergency (ER) | payer MEDICARE, MEDICAID, SELFPAY ==
[2022-03-13 09:00] VITALS: BP 118/75; PULSE 76; RESP 18; TEMP 36.7; O2SAT 98; BMI 24.1
--- NOTE | 2022-03-13 10:00 | EDS_ITS ---
HPI HPI - GI History of Present Illness Chief Complaint: Abd Pain Informant: patient Abdominal Pain/Flank Pain Onset: Yesterday Context: Sudden Onset Timing: Intermittent Quality: Aching and Sharp Location: RUQ and RLQ Worsened by: Nothing Relieved by: Nothing Nausea/Vomiting/Emesis GI Symptom: Negative for Nausea or Vomiting Diarrhea/Melena/Hematochezia GI Symptom: Negative for Diarrhea, Melena or Hematochezia Associated Symptoms Associated Symptoms: Negative for Dysuria, Frequency or Hematuria Narrative Narrative: Patient presents with abdominal pain that began yesterday. Patient states it began rather suddenly. Patient states it is on the right side of her abdomen. Patient states nothing makes it better and nothing makes it worse. Patient states she has a hernia on the right side of her abdomen. Patient states the pain radiates around into her back. Patient denies any nausea or vomiting. Patient denies any diarrhea or, melena, or hematochezia. Patient denies any urinary complaints. [facility] Medical History Anxiety disorder Diabetes Hyperlipidemia Knee contusion removed eye lens bilateral 2001 Thyroid cancer Home Medications benztropine 1 mg tablet 1 mg PO BID SPASMS 03/09/19 [History Last Taken 07/23/21] latanoprost 0.005 % eye drops 1 drp EACH EYE QHS 03/09/19 [History Last Taken 1 09/22/20] mirtazapine 15 mg tablet 7.5 mg PO QHS DEPRESSION 03/09/19 [History Last Taken 07/22/21] gabapentin 100 mg capsule 100 mg PO DAILY NERVE PAIN 07/26/20 [History Last Taken 07/23/21] aspirin 81 mg tablet,delayed release 81 mg PO DAILY@0800 HEALTH MAINTENANCE 07/23/21 [History Last Taken 07/23/21] brimonidine 0.2 %-timolol 0.5 % eye drops (Combigan) 1 drp EACH EYE BID GLAUCOMA 07/23/21 [History Last Taken 07/23/21] cholecalciferol (vitamin D3) 25 mcg (1,000 unit) tablet 25 mcg PO DAILY SUPPLEMENT 07/23/21 [History Last Taken 07/23/21] levothyroxine 100 mcg tablet 100 mcg PO DAILY THYROID 07/23/21 [History Last Taken 07/23/21] metformin 500 mg tablet,extended release 24 hr 500 mg PO DAILY DM 07/23/21 [History Last Taken 07/23/21] olanzapine 2.5 mg tablet (Zyprexa) 2.5 mg PO QHS SCHIZOAFFECIVE 07/23/21 [History Last Taken 07/22/21] omeprazole 20 mg capsule,delayed release 20 mg PO DAILY GERD 07/23/21 [History Last Taken 07/23/21] hydrocodone-acetaminophen 5-325mg 5mg-325mg 1 tab PO Q6H PRN PRN Pain 3 days #10 TABLETS 03/13/22 [Rx Last Taken Unknown] insulin glargine 100 unit/mL (3 mL) subcutaneous pen (Lantus Solostar U-100 Insulin) 15 ea subcut QHS 03/13/22 [History Last Taken Unknown] Allergy/AdvReac Type Severity Reaction Status Date / Time Penicillins Allergy Unknown Verified 03/13/22 09:02 Sulfa (Sulfonamide Allergy Unknown Verified 03/13/22 09:02 Antibiotics) Family History Other no family history Surgical History History of hysterectomy History of thyroidectomy Social History Smoking Status: Never smoker ROS ROS ED Constitutional Constitutional ED: Denies chills or fever(s) Eyes Eyes: Denies blurry vision or change in vision ENT ENT ED: Denies rhinorrhea or sore throat Cardiovascular Cardiovascular: Denies chest pain or palpitations Respiratory/Chest Respiratory/Chest: Denies cough or dyspnea Gastrointestinal Gastrointestinal: Reports abdominal pain; Denies nausea or vomiting Genitourinary Genitourinary ED: Denies dysuria or hematuria Musculoskeletal Musculoskeletal: Reports back pain; Denies neck pain Integumentary Denies abscess or rash Neurologic Neurologic: Denies headache(s) or weakness Allergic/Immunologic Allergic/Immunologic ED: Denies mouth swelling or urticaria EXAM Physical Exam Const Vital Signs: 03/13/22 09:00 03/13/22 11:00 03/13/22 13:00 Temperature 98.1 F Temperature Source Oral Pulse Rate 76 77 Respiratory Rate 18 16 16 Blood Pressure 118/75 130/92 H Blood Pressure Mean 89 104 Pulse Ox 98 92 Oxygen Delivery Method Room Air Nasal Cannula Oxygen Flow Rate (L/min) 2 03/13/22 15:03 Temperature Temperature Source Pulse Rate 67 Respiratory Rate 16 Blood Pressure 135/82 H Blood Pressure Mean 99 Pulse Ox 95 Oxygen Delivery Method Nasal Cannula Oxygen Flow Rate (L/min) 2 Positive well nourished and well developed General Appearance ED: well developed and NAD HEENT Reports moist mucous membranes Neck supple and no JVD Resp normal respiratory effort and clear to auscultation bilaterally Cardio regular rate, regular rhythm and no murmurs GI normal to inspection, nondistended, normoactive bowel sounds Palpation: soft and tender RLQ and RUQ; Negative for guarding or rebound tenderness present Extremity normal to inspection General Extremety ED: Negative for edema or tenderness General Extremity: Negative for edema Neuro oriented x3, CN's II-XII intact bilaterally and no sensory deficits noted Sensorium / Orientation: alert Motor Exam: strength 5/5 throughout Psych mental status grossly normal Skin no rashes or lesions noted MDM MDM MDM Narrative Medical decision making narrative: Patient was given IV fluids, morphine, and Zofran. CBC was within normal limits. Comprehensive metabolic profile was essentially within normal limits. Urinalysis does not show any evidence of urinary tract infection or hematuria. Lipase was normal. CT scan of the abdomen and pelvis with oral and IV contrast was obtained. There is a 5.8 x 3.3 cm mass of the pancreas consistent with neop lasm. There is also a 5 cm left renal mass. There is also a 4 mm obstructive renal calculus at the left UPJ. This was interpreted by the radiologist and reviewed by myself. The patient was advised of her findings. Patient is pain- free on reevaluation. Patient states she has seen an oncologist in the past in [place] but does not have an oncologist here. Patient was instructed to follow-up with her primary care physician in 3 to 5 days for further evaluation. Patient was given a prescription for [place] for pain. Patient was instructed to return if worse in any way. Patient understood and was agreeable with the plan. All questions were answered. Lab Data Attestation: I reviewed the patient's lab results. Labs: Laboratory Results - last 24 hr 03/13/22 03/13/22 03/13/22 09:04 09:04 10:54 WBC 8.9 RBC 4.37 Hgb 13.6 Hct 41.7 MCV 95.4 MCH 31.1 MCHC 32.6 RDW Std Deviation 49.1 H RDW Coeff of [place] 14.1 Plt Count 300 MPV 12.2 H Immature Gran % (Auto) 0.500 Neut % (Auto) 67.6 Lymph % (Auto) 23.2 Mchenry % (Auto) 6.4 Eos % (Auto) 1.8 Baso % (Auto) 0.5 Absolute Neuts (auto) 6.0 Absolute Lymphs (auto) 2.05 Nucleated RBC % 0 Sodium 136 Potassium 4.2 Chloride 105 Carbon Dioxide 25.0 Anion Gap 6 BUN 25 H Creatinine 1.07 H Estim Creat Clear Calc 40.88 Est GFR (MDRD) Af Amer 64 Est GFR (MDRD) Non-Af 53 L BUN/Creatinine Ratio 23.4 H Glucose 186 H Calcium 9.2 Total Bilirubin 0.60 AST 16 ALT 16 Alkaline Phosphatase 76 Total Protein 7.5 Albumin 3.4 Globulin 4.1 Albumin/Globulin Ratio 0.8 L Lipase 53 L Urine Color Yellow Urine Clarity Clear Urine pH 6.0 Ur Specific [place] 1.015 Urine Protein 15 H Urine Glucose (UA) Normal Urine Ketones 5 H Urine Occult Blood 250 H Urine Nitrite Negative Urine Bilirubin Negative Urine Urobilinogen Normal Ur Leukocyte Esterase 100 H Urine RBC 5-10 SEEN Urine WBC 0 SEEN Ur Squamous Epith Cells 0 SEEN Urine Bacteria 0 SEEN Urine Mucus 0 SEEN Radiography Diagnostic Testing: Clinical Impression(s) from Imaging Studies Abdomen/Pelvis CT 03/13/22 10:04 IMPRESSION: 1. 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 2. 5 cm Bosniak 4 left renal mass. 3. Obstructive 4 mm stone at the left ureteropelvic junction. 4. Stable hepatic lesions. 5. Additional findings detailed above. Electronically Signed: Daniel Marte MD at 13:53 EDT , Discharge Plan Triage Chief Complaint: Abd Pain ED Provider: Sage Dennis Dx/Rx/DC Orders Clinical Impression: Pancreatic mass, Left kidney mass, Calculus of proximal left ureter, Abdominal hernia Instructions: ED Abdominal Pain Unkn Cause Fem, ED Tumor, Uncertain Cause Prescriptions: New hydrocodone-acetaminophen [hydrocodone-acetaminophen] 5-325 mg tablet 1 tab PO Q6H PRN PRN (Reason: Pain) 3 Days Qty: 10 0RF No Action benztropine 1 MG tablet 1 mg PO BID latanoprost 1 DROP bottle 1 drp EACH EYE QHS mirtazapine 15 MG tablet 7.5 mg PO QHS gabapentin 100 MG capsule 100 mg PO DAILY olanzapine [Zyprexa] 2.5 mg Tablet 2.5 mg PO QHS aspirin 81 mg tablet,delayed release (DR/EC) 81 mg PO DAILY@0800 levothyroxine 100 mcg Tablet 100 mcg PO DAILY omeprazole 20 mg Capsule,Delayed Release(Dr/Ec) 20 mg PO DAILY metformin 500 mg Tablet Extended Release 24 Hr 500 mg PO DAILY cholecalciferol (vitamin D3) 25 mcg (1,000 unit) Tablet 25 mcg PO DAILY brimonidine-timolol [Combigan] 0.2-0.5 % Drops 1 drp EACH EYE BID insulin glargine [Lantus Solostar U-100 Insulin] 100 unit/mL (3 mL) insulin pen 15 ea SUBCUT QHS Primary Care Provider: Dann Muniz Referrals: Bishop Longoria DO [STAFF PHYSICIAN] - 5-7 Days Dann Muniz MD [Primary Care Provider] - 3-5 Days Disposition Disposition: Home, Self Care
--- NOTE | 2022-03-13 10:04 | CT_ITS ---
EXAM: CT ABDOMEN AND PELVIS WITH INTRAVENOUS CONTRAST CLINICAL INDICATION: Abdominal pain -- IV PO Contrast TECHNIQUE: Helically acquired images were obtained of the abdomen and pelvis with intravenous contrast. This CT exam was performed using one or more of the following dose reduction techniques: automated exposure control, adjustment of the mA and/or kV according to patient size, and/or use of iterative reconstruction technique. This report was created using [employer] report generation technology. CONTRAST: IV 100mL Isovue-300 COMPARISON: CT Abdomen Pelvis dated 03/09/2019 and 11/08/2017 FINDINGS: LOWER THORAX: Normal. Lung bases are clear. No cardiomegaly. No pericardial effusion. ABDOMEN: LIVER: Stable lesions involving hepatic segment 7. GALLBLADDER AND BILE DUCTS: Cholecystectomy clips are in place. Biliary tree is slightly more distended on the current exam without evidence of obstructing stone or mass and may be related to cholecystectomy state. No intra- or extrahepatic biliary ductal dilation. PANCREAS: 5.8 x 3.3 cm mass occupies the neck and body of the pancreas associated with obstructive change of the distal pancreatic duct. SPLEEN: Normal. Normal size without focal cystic or solid mass. ADRENALS: Normal. No nodules. KIDNEYS AND URETERS: Complex cystic left renal mass noted which has increased in size now measuring 5 cm diameter containing a 2 cm contrast-enhancing nodule within the wall consistent with Bosniak 4 lesion. Additional benign cysts noted within both kidneys. A 4 mm stone noted at the left ureteropelvic junction associated with left hydronephrosis. STOMACH AND BOWEL: Normal. No bowel distention. No focal inflammatory change. PELVIS: APPENDIX: No evidence of acute appendicitis. BLADDER: Normal. REPRODUCTIVE: Unremarkable as visualized. No mass. ABDOMEN and PELVIS: INTRAPERITONEAL SPACE: Normal. No ascites or other fluid collection. No free air. BONES/JOINTS: See abnormal bone density again noted which raises the possibility of metastatic disease, multiple myeloma and osteoporosis. SOFT TISSUES: Normal. No discrete abdominal or pelvic wall hernia. VASCULATURE: Tubular structure extends from the confluence of the splenic and mesenteric veins consistent with thrombosed varicose vein. Abdominal aorta is non-dilated. LYMPH NODES: Normal. No enlarged lymph nodes. CT/Abdomen/Pelvis WITH Contrast IMPRESSION: 1. 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 2. 5 cm Bosniak 4 left renal mass. 3. Obstructive 4 mm stone at the left ureteropelvic junction. 4. Stable hepatic lesions. 5. Additional findings detailed above. Electronically Signed: Daniel Marte MD at 13:53 EDT ,
[2022-03-13 10:13] LABS: Absolute Lymphocyte Count 2.05 X10^3/uL (0.83-4.51); Basophil# 0.04 X10^3/uL; Basophil% 0.5 % (0-1); Eosinophil# 0.16 X10^3/uL; Eosinophils% 1.8 % (0-5); Hematocrit 41.7 % (37-47); Hemoglobin 13.6 g/dL (12.0-15.0); Lymphocyte # 2.05 X10^3/ul (0.83-4.51); Lymphocyte % 23.2 % (19-41); Mean Corp Hgb Conc 32.6 g/dL (32-36); Mean Corpuscular Hgb 31.1 pg (27.0-32.0); Mean Corpuscular Volume 95.4 fL (81-99); Mean Platelet Vol. 12.2 fl (6.2-12.0); Monocyte# 0.57 X10^3/uL; Monocyte% 6.4 % (0-10); NRBC Flagged by Analyzer 0 % (0-5); Neutrophil # 5.99 X10^3/uL (2.7-7.7); Neutrophil % 67.6 % (47-70); Platelet Count 300 K/mm3 (150-450); RBC Distribution Width CV 14.1 % (11.6-14.6); RBC Distribution Width SD 49.1 fl (35.1-43.9); Red Blood Count 4.37 M/mm3 (4.2-5.4); White Blood Count 8.9 K/mm3 (4.4-11.0)
[2022-03-13] MEDS: Ondansetron 4 MG/2 ML Vial IV (10:15)
[2022-03-13] MEDS: Morphine 4 MG/ML Syringe IV (10:16)
[2022-03-13] MEDS: 0.9% Normal Saline 1,000 ML 1000 ML IV (10:16)
[2022-03-13 10:26] LABS: ALB/GLOB Ratio 0.8 RATIO (0.9-2.4); AST(SGOT) 16 U/L (15-37); Alanine Aminotransfer ALT/SGPT 16 U/L (13-56); Albumin, Serum 3.4 g/dL (3.2-5.0); Alkaline Phosphatase 76 U/L (45-117); Anion Gap 6 (5-15); BUN 25 mg/dL (7-18); BUN/Creat Ratio 23.4 RATIO (10-20); Calcium,Total 9.2 mg/dL (8.5-10.1); Chloride 105 mmol/L (98-107); Creatinine, Serum 1.07 mg/dL (0.55-1.02); EST Glomerular Filtration Rate 53 mL/min (>60); Est Glom Filt Rate - Afr Amer 64 mL/min (>60); Estimated Creatinine Clearance 40.88 ml/min; Globulin 4.1 g/dL (2.2-4.2); Glucose 186 mg/dL (74-106); Lipase 53 U/L (73-393); Potassium 4.2 mmol/L (3.5-5.1); Protein, Total 7.5 g/dL (6.4-8.2); Sodium Level 136 mmol/L (136-145)
--- NOTE | 2022-03-13 10:30 | ED.RN ---
PT O2 SAT DROPS TO 73 AFTER MORPHINE, PT AWAKE NOW O2 PLACED. PT SAT UP TO 99. PT AWAKE AND ALERT
[2022-03-13 10:59] LABS: Bacteria 0 SEEN /hpf (None Seen); Mucous, Urine 0 SEEN /hpf (<or=2+); Squamous Epithelial Cells - UA 0 SEEN /hpf (5-10); White Blood Cells 0 SEEN /hpf (0-5)
[2022-03-13 11:00] VITALS: RESP 16
[2022-03-13 11:01] LABS: Color, Urine Yellow (Yellow); Glucose, Dipstick Normal (Normal); Ketone-Dipstick 5 mg/dl (Negative); Leukocyte Esterase-Dipstick 100 /ul (Negative); Nitrite-Dipstick Negative (Negative); Occult Blood-Urine 250 /ul (Negative); Protein-Dipstick 15 mg/dl (Negative); Specific Gravity, Urine 1.015 (1.002-1.030); Urine Bilirubin Dipstick Negative (Negative); Urine Clarity Clear (Clear); Urine Urobilinogen Normal (Normal)
[2022-03-13 11:07] LABS: Red Blood Cells-Urine 5-10 SEEN /hpf (0-5)
[2022-03-13 13:00] VITALS: BP 130/92; PULSE 77; RESP 16; O2SAT 92
[2022-03-13 15:03] VITALS: BP 135/82; PULSE 67; RESP 16; O2SAT 95
[2022-03-13 15:18] VITALS: RESP 16
== END 2022-03-13 16:03 | disposition home or self-care (01) ==
PROVIDERS: Emergency Provider Emergency Medicine; PCP Family Medicine; Visit Provider Emergency Medicine
DX: N28.89 Other specified disorders of kidney and ureter (principal); E11.9 Type 2 diabetes mellitus without complications; R11.2 Nausea with vomiting, unspecified; N20.2 Calculus of kidney with calculus of ureter; K86.89 Other specified diseases of pancreas; E78.5 Hyperlipidemia, unspecified; Z85.850 Personal history of malignant neoplasm of thyroid
CPT/HCPCS: 74177; 80053; 81001; 83690; 85025; 96361; 96374; 96375; 99285; J7030; Q9967; A4216; J2405

== ENCOUNTER 2022-03-14 08:53 | Emergency (ER) | payer MEDICARE, MEDICAID, SELFPAY ==
[2022-03-14 08:54] VITALS: BP 129/92; PULSE 90; RESP 16; TEMP 35.8; O2SAT 92; BMI 25.2
--- NOTE | 2022-03-14 09:08 | EDS_ITS ---
HPI History of Present Illness Chief Complaint: Abd Pain Informant: patient Narrative Narrative: Patient sent here from the [facility] due to recurrent right side abdominal pain awakening this morning. She seen yesterday for similar. She had a work-up yesterday. Reviewing records she had findings of a new pancreatic mass along with left kidney mass along with a 4 mm obstructive UPJ stone. Labs are stable, urine negative for infection. She denies any new symptoms up for the recurrent pain. She is pain-free when she left yesterday. Reviewing records note she had an oncologist in [place] for unclear reasons. Facility states they cannot fill her medications until tomorrow. They spoke with the guardian who sent her here. She does have dementia history from records. She did not fully recall the diagnosis yesterday and I explained this to her for which she remembered. [facility] Medical History Anxiety disorder Diabetes Hyperlipidemia Knee contusion removed eye lens bilateral 2001 Thyroid cancer Home Medications benztropine 1 mg tablet 1 mg PO BID SPASMS 03/09/19 [History Last Taken 07/23/21] latanoprost 0.005 % eye drops 1 drp EACH EYE QHS 03/09/19 [History Last Taken 07/22/21] mirtazapine 15 mg tablet 7.5 mg PO QHS DEPRESSION 03/09/19 [History Last Taken 07/22/21] gabapentin 100 mg capsule 100 mg PO DAILY NERVE PAIN 07/26/20 [History Last Taken 07/23/21] aspirin 81 mg tablet,delayed release 81 mg PO DAILY@0800 HEALTH MAINTENANCE 07/23/21 [History Last Taken 07/23/21] brimonidine 0.2 %-timolol 0.5 % eye drops (Combigan) 1 drp EACH EYE BID GLAUCOMA 07/23/21 [History Last Taken 07/23/21] cholecalciferol (vitamin D3) 25 mcg (1,000 unit) tablet 25 mcg PO DAILY SUPPLEMENT 07/23/21 [History Last Taken 07/23/21] levothyroxine 100 mcg tablet 100 mcg PO DAILY THYROID 07/23/21 [History Last Taken 07/23/21] metformin 500 mg tablet,extended release 24 hr 500 mg PO DAILY DM 07/23/21 [History Last Taken 07/23/21] olanzapine 2.5 mg tablet (Zyprexa) 2.5 mg PO QHS SCHIZOAFFECIVE 07/23/21 [History Last Taken 07/22/21] omeprazole 20 mg capsule,delayed release 20 mg PO DAILY GERD 07/23/21 [History Last Taken 07/23/21] hydrocodone-acetaminophen 5-325mg 5mg-325mg 1 tab PO Q6H PRN PRN Pain 3 days #10 TABLETS 03/13/22 [Rx Last Taken Unknown] insulin glargine 100 unit/mL (3 mL) subcutaneous pen (Lantus Solostar U-100 Insulin) 15 ea subcut QHS 03/13/22 [History Last Taken Unknown] hydrocodone-acetaminophen 5-325mg 5mg-325mg 1 tab PO Q6H PRN pain 3 days #12 tabs 03/14/22 [Rx Last Taken Unknown] Allergy/AdvReac Type Severity Reaction Status Date / Time Penicillins Allergy Unknown Verified 03/13/22 09:02 Sulfa (Sulfonamide Allergy Unknown Verified 03/13/22 09:02 Antibiotics) Family History Other no family history Surgical History History of hysterectomy History of thyroidectomy Social History Smoking Status: Never smoker ROS ROS ED Constitutional Constitutional ED: Denies chills, fever(s) or sweats Eyes Eyes: Denies change in vision ENT ENT ED: Denies dysphagia or sore throat Cardiovascular Cardiovascular: Denies chest pain, leg edema, palpitations or racing heartbeat Respiratory/Chest Respiratory/Chest: Denies cough, dyspnea or dyspnea on exertion Gastrointestinal Gastrointestinal: Reports abdominal pain; Denies diarrhea, nausea or vomiting Genitourinary Genitourinary ED: Denies dysuria, hematuria or urinary frequency Musculoskeletal Musculoskeletal: Denies back pain, extremity pain or neck pain Integumentary Denies rash or wounds Neurologic Neurologic: Denies headache(s), paresthesias or weakness EXAM Physical Exam Const Vital Signs: 03/14/22 08:54 03/14/22 11:11 Temperature 96.4 F L Temperature Source Temporal Pulse Rate 90 Respiratory Rate 16 Blood Pressure 129/92 H 137/97 H Blood Pressure Mean 104 Pulse Ox 92 93 Oxygen Delivery Method Room Air Constitutional Narrative: Poor informant, following commands answering questions. General Appearance ED: NAD HEENT Reports moist mucous membranes normocephalic and atraumatic Eyes PERRL, EOMs intact bilaterally and conjunctivae normal General Eye ED: Yes normal appearance of both eyes Neck no lymphadenopathy and supple General: Negative for tenderness Chest Wall Chest: Negative for tenderness Resp normal respiratory effort and normal air movement Effort and Inspection: symmetric chest movement; Negative for respiratory distre ss Cardio regular rate, regular rhythm and no murmurs Peripheral Pulses: pulses 2+ throughout GI normal to inspection, nondistended, normoactive bowel sounds GI Narrative: Mild right side abdominal tender without guarding or rebound there is no rash. Palpation: Negative for guarding or rebound tenderness present Back/Spine no CVA tenderness and no thoracic nor lumbar tenderness Extremity normal to inspection General Extremety ED: Negative for edema or tenderness General Extremity: Negative for edema Neuro oriented x3 and no sensory deficits noted Sensorium / Orientation: awake and alert Skin no rashes or lesions noted and no wounds MDM MDM MDM Narrative Medical decision making narrative: Patient presents recurrent pain which was evaluated yesterday. She had a left- sided kidney stone left kidney mass and a pancreatic mass. Per facility unable to fill her prescriptions until tomorrow. We will treat her with a [place] will reevaluate. Symptoms improved on reevaluation. With findings from yesterday I did discuss with her PCP Dr. Muniz who knows the patient. She does have dementia history. She is aware new findings of the pancreatic mass and kidney mass. Discussed will give referral to urology with the obstructive left-sided urolithiasis. Meds to bed with [place] prescription since it was reported facility unable to fill her medication until tomorrow. Also fast past referral was made for the masses for oncology. They can evaluate as an outpatient. Patient will be transferred back to her assisted living where there is nursing care with her medications. Discharge Plan Triage Chief Complaint: Abd Pain ED Provider: Asad Ferrer Dx/Rx/DC Orders Clinical Impression: Pancreatic mass, Dementia, Calculus of proximal left ureter, Left kidney mass, Abdominal pain Instructions: Abdominal Pain, ED Kidney Stone w/ Colic Prescriptions: New hydrocodone-acetaminophen 5-325 mg tablet 1 tab PO Q6H PRN (Reason: pain) 3 Days Qty: 12 0RF No Action benztropine 1 MG tablet 1 mg PO BID latanoprost 1 DROP bottle 1 drp EACH EYE QHS mirtazapine 15 MG tablet 7.5 mg PO QHS gabapentin 100 MG capsule 100 mg PO DAILY olanzapine [Zyprexa] 2.5 mg Tablet 2.5 mg PO QHS aspirin 81 mg tablet,delayed release (DR/EC) 81 mg PO DAILY@0800 levothyroxine 100 mcg Tablet 100 mcg PO DAILY omeprazole 20 mg Capsule,Delayed Release(Dr/Ec) 20 mg PO DAILY metformin 500 mg Tablet Extended Release 24 Hr 500 mg PO DAILY cholecalciferol (vitamin D3) 25 mcg (1,000 unit) Tablet 25 mcg PO DAILY brimonidine-timolol [Combigan] 0.2-0.5 % Drops 1 drp EACH EYE BID insulin glargine [Lantus Solostar U-100 Insulin] 100 unit/mL (3 mL) insulin pen 15 ea SUBCUT QHS hydrocodone-acetaminophen [hydrocodone-acetaminophen] 5-325 mg tablet 1 tab PO Q6H PRN PRN (Reason: Pain) 3 Days Qty: 10 0RF Other Ambulatory Orders: Fast Pass: Oncology Referral [facility] (Routine) Facility: [facility] - Location: [facility] Ordered By: Dr. Asad Ferrer Primary Care Provider: Dann Muniz Referrals: Jose Leigh MD [STAFF PHYSICIAN] - 3-5 Days Dann Muniz MD [Primary Care Provider] - 3-5 Days Activity Restrictions/Additional Instructions: You have a 4 mm kidney stone causing obstruction on the left side. You are not having pain in this area. Follow-up with urology. He had a new pancreatic mass along with left kidney mass. Fast pass referral for oncology was placed in the orders. Her PCP is aware. Follow-up with your doctor discussed plan of care. You were dispensed with a prescription with hydrocodone filled by pharmacy here to take as needed for pain. Disposition Disposition: Home, Self Care Discharge Date/Time: 03/14/22 12:07
[2022-03-14] MEDS: HYDROcodone Bitartrate/Apap 5/325 Tablet PO (09:28)
[2022-03-14 11:11] VITALS: BP 137/97; O2SAT 93
--- NOTE | 2022-03-14 11:27 | ED.RN ---
CALLED AND TALKED WITH WILLIAM AT [facility] AND GAVE HER THE APPOINTMENT INFO FOR THE PT WITH ONCOLOGY ON MONDAY. ALSO INFORMED WILLIAM THAT THE PT IS BEING SENT BACK WIT HER PAIN MEDICINE THAT WE FILLED AT THE HOSPITAL
== END 2022-03-14 12:07 | disposition home or self-care (01) ==
PROVIDERS: Emergency Provider Emergency Medicine; PCP Family Medicine; Visit Provider Emergency Medicine
DX: K86.89 Other specified diseases of pancreas (principal); F03.90 Unspecified dementia, unspecified severity, without behavioral disturbance, psychotic disturbance, mood disturbance, and anxiety; E11.9 Type 2 diabetes mellitus without complications; N20.2 Calculus of kidney with calculus of ureter; N28.89 Other specified disorders of kidney and ureter; E78.5 Hyperlipidemia, unspecified; Z85.850 Personal history of malignant neoplasm of thyroid
CPT/HCPCS: 99284

== ENCOUNTER 2022-03-16 02:06 | Emergency (ER) | payer MEDICARE, MEDICAID, SELFPAY ==
[2022-03-16 02:07] VITALS: BP 116/56; PULSE 81; RESP 16; TEMP 36.4; O2SAT 97; BMI 22.5
--- NOTE | 2022-03-16 02:28 | CT_ITS ---
STUDY: CT BRAIN WITHOUT CONTRAST REASON FOR EXAM: Female, 76 years old. Head injury RADIATION DOSAGE (If Supplied By Facility): CTDIvol = ( 44.99 ) mGy, DLP = ( 897.35 ) mGycm TECHNIQUE: Transaxial CT imaging of the brain was performed without administration of intravenous contrast material. Individualized dose optimization techniques were used for this CT. COMPARISON: No relevant priors. FINDINGS: Normal soft tissue structures. There is hyperostosis frontalis internus. There is mild cerebral volume loss with widening of the extra-axial spaces and ventricular dilatation. There are areas of decreased attenuation within the white matter tracts of the supratentorial brain, consistent with microvascular disease changes. Right basal ganglial lacunar infarct. Normal brainstem. Normal cerebellum. There is no intracranial hemorrhage. There are no findings of an acute ischemic infarction. Normal visualized paranasal sinuses. Bilateral ocular lens extractions. CT/Brain/Head without Contrast IMPRESSION: Normal unenhanced CT scan of the brain. Electronically Signed: Bishop Aguirre MD at 3:14 EDT ,
--- NOTE | 2022-03-16 02:28 | CT_ITS ---
STUDY: CT CERVICAL SPINE WITHOUT CONTRAST REASON FOR EXAM: Female, 76 years old. Fall RADIATION DOSAGE (If Supplied By Facility): CTDIvol = ( 14.12 ) mGy, DLP = ( 305.90 ) mGycm TECHNIQUE: High resolution transaxial imaging was performed without contrast material. Sagittal and coronal images were reconstructed. Individualized dose optimization techniques were used for this CT. COMPARISON: None FINDINGS: Normal craniovertebral junction. Normal anterior atlantoaxial articulation. Normal odontoid process. Normal cervical lordosis. Normal vertebral bodies and posterior osseous elements. Degenerative changes of the cervical spine. No critical spinal canal or neural foraminal stenosis Normal visualized soft tissue structures. CT/Spine Cervical without Contras IMPRESSION: No acute fracture or dislocation of the cervical spine. Electronically Signed: Bishop Aguirre MD at 3:19 EDT ,
--- NOTE | 2022-03-16 02:28 | RAD_ITS ---
STUDY: X-RAY - PELVIS REASON FOR EXAM: Female, 76 years old. Fall TECHNIQUE: One view of the pelvis was obtained. COMPARISON: None. FINDINGS: Demineralization reduces sensitivity for nondisplaced fracture. No finding of acute fracture or dislocation. The pelvic ring appears intact. Both femoral heads appear seated in the acetabula. Normal appearance of the sacroiliac joints and pubic symphysis. Partially visualized bowel gas pattern is nonobstructive. RAD/Pelvis 1 or 2 Views IMPRESSION: No acute abnormal finding. Electronically Signed: Bishop Aguirre MD at 2:53 EDT ,
--- NOTE | 2022-03-16 03:23 | EX.ED.DYSGE1 ---
HPI History of Present Illness Chief Complaint: Fall Narrative Narrative: Patient is a 76-year-old female with past medical history of dementia thyroid cancer liver mass and anxiety. She stays at a snf and had an unwitnessed fall this evening. Patient reports it was a mechanical fall and states she believes she was on the ground for approximately 1 hour. Nursing reports patient is at her baseline mental status but that she was complaining of head pain at the facility but has no complaints at this time. However with the fall concern for underlying injury she was sent in for evaluation [facility] Medical History (Updated 03/16/22 @ 03:[address] Kaz Erazo, DO) Anxiety disorder CKD (chronic kidney disease), stage III Dementia Diabetes mellitus, type 2 Hemangioma of liver Hyperlipidemia Pancreatic mass Thyroid cancer Home Medications benztropine 1 mg tablet 1 mg PO BID SPASMS 03/09/19 [History Last Taken 07/23/21] latanoprost 0.005 % eye drops 1 drp EACH EYE QHS 03/09/19 [History Last Taken 07/22/21] mirtazapine 15 mg tablet 7.5 mg PO QHS DEPRESSION 03/09/19 [History Last Taken 07/22/21] gabapentin 100 mg capsule 100 mg PO DAILY NERVE PAIN 07/26/20 [History Last Taken 07/23/21] aspirin 81 mg tablet,delayed release 81 mg PO DAILY@0800 HEALTH MAINTENANCE 07/23/21 [History Last Taken 07/23/21] brimonidine 0.2 %-timolol 0.5 % eye drops (Combigan) 1 drp EACH EYE BID GLAUCOMA 07/23/21 [History Last Taken 07/23/21] cholecalciferol (vitamin D3) 25 mcg (1,000 unit) tablet 25 mcg PO DAILY SUPPLEMENT 07/23/21 [History Last Taken 07/23/21] levothyroxine 100 mcg tablet 100 mcg PO DAILY THYROID 07/23/21 [History Last Taken 07/23/21] metformin 500 mg tablet,extended release 24 hr 500 mg PO DAILY DM 07/23/21 [History Last Taken 07/23/21] olanzapine 2.5 mg tablet (Zyprexa) 2.5 mg PO QHS SCHIZOAFFECIVE 07/23/21 [History Last Taken 07/22/21] omeprazole 20 mg capsule,delayed release 20 mg PO DAILY GERD 07/23/21 [History Last Taken 07/23/21] hydrocodone-acetaminophen 5-325mg 5mg-325mg 1 tab PO Q6H PRN PRN Pain 3 days #10 TABLETS 03/13/22 [Rx Last Taken Unknown] insulin glargine 100 unit/mL (3 mL) subcutaneous pen (Lantus Solostar U-100 Insulin) 15 ea subcut QHS 03/13/22 [History Last Taken Unknown] hydrocodone-acetaminophen 5-325mg 5mg-325mg 1 tab PO Q6H PRN pain 3 days #12 tabs 03/14/22 [Rx Last Taken Unknown] Allergy/AdvReac Type Severity Reaction Status Date / Time Penicillins Allergy Unknown Verified 03/16/22 02:12 Sulfa (Sulfonamide Allergy Unknown Verified 03/16/22 02:12 Antibiotics) Family History Other no family history Surgical History (Updated 03/16/22 @ 02:[address] Albina Flanagan MD) History of eye surgery History of hysterectomy History of surgery of liver History of thyroidectomy Social History (Updated 03/16/22 @ 02:[address] Albina Flanagan MD) housing: assisted living facility Smoking Status: Never smoker alcohol intake: never substance use type: does not use ROS ROS ED ROS Narrative Please note review of systems may be unreliable secondary to dementia Constitutional Constitutional ED: Denies chills or fever(s) ENT ENT ED: Denies sore throat Cardiovascular Cardiovascular: Denies chest pain Respiratory/Chest Respiratory/Chest: Denies cough or dyspnea Gastrointestinal Gastrointestinal: Denies abdominal pain, diarrhea, nausea or vomiting Genitourinary Genitourinary ED: Denies dysuria Musculoskeletal Musculoskeletal: Denies myalgias Integumentary Denies rash Neurologic Neurologic: Denies headache(s) Hematologic/Lymphatic Hematologic/Lymphatic: Denies easy bleeding or easy bruising EXAM Physical Exam Const Vital Signs: 03/16/22 02:07 03/16/22 02:13 Temperature 97.6 F L Temperature Source Temporal Pulse Rate 81 Respiratory Rate 16 Respiratory Effort Normal Non-Labored Respiratory Depth Normal Respiratory Pattern Normal Blood Pressure 116/56 L Blood Pressure Mean 76 Pulse Ox 97 Oxygen Delivery Method Room Air Room Air Positive well nourished and well developed General Appearance ED: well developed HEENT HEENT Narrative: Patient has a 1 x 2 hematoma to the left occipital portion of the scalp. There is a healing abrasion to the left side of the forehead which coincides with report from a fall from a few weeks ago. However there are no signs of depressed or basilar skull fracture Eyes PERRL and EOMs intact bilaterally Neck supple Neck Narrative: No bony deformity or step-off of the cervical spine no midline pain with palpation Chest Wall palpation of chest normal Resp normal respiratory effort and clear to auscultation bilaterally Cardio regular rate and regular rhythm GI normal to inspection, nondistended, normoactive bowel sounds, non-tender and non-distended Auscultation: normoactive bowel sounds Palpation: soft Back/Spine Back/Spine Narrative: Patient has scoliosis noted but otherwise no report of pain with palpation Extremity normal to inspection Extremity Narrative: Pelvis is stable there is no shortening or external rotation of either lower extremity. Patient can lift all extremities without difficulty Neuro CN's II-XII intact bilaterally Sensorium / Orientation: alert Psych mental status grossly normal Skin no rashes or lesions noted Skin Narrative: Hematoma as documented above otherwise normal MDM MDM MDM Narrative Medical decision making narrative: Patient presented to the ER at her baseline mental status with report of a mechanical fall. She was only reportedly on the ground for about 1 hour and therefore concern for rhabdomyolysis is low. With the fall and signs of head injury I did elect to perform basic imaging studies which revealed no acute traumatic finding. Therefore at this time with imaging study showing no signs of acute trauma she is otherwise safe to return to the snf Radiography Diagnostic Testing: Clinical Impression(s) from Imaging Studies Brain CT 03/16/22 02:28 IMPRESSION: Normal unenhanced CT scan of the brain. Electronically Signed: Bishop Aguirre MD at 3:14 EDT , Cervical Spine CT 03/16/22 02:28 IMPRESSION: No acute fracture or dislocation of the cervical spine. Electronically Signed: Bishop Aguirre MD at 3:19 EDT , Pelvis X-Ray 03/16/22 02:28 IMPRESSION: No acute abnormal finding. Electronically Signed: Bishop Aguirre MD at 2:53 EDT , Pelvis x-ray as interpreted by the emergency medicine physician reveals no acute fracture or dislocation Discharge Plan Triage Chief Complaint: Fall ED Provider: Kaz Erazo Dx/Rx/DC Orders Clinical Impression: Closed head injury, Dementia, Accidental fall Instructions: ED Head Injury (Adult), ED Fall Prevention Prescriptions: No Action benztropine 1 MG tablet 1 mg PO BID latanoprost 1 DROP bottle 1 drp EACH EYE QHS mirtazapine 15 MG tablet 7.5 mg PO QHS gabapentin 100 MG capsule 100 mg PO DAILY olanzapine [Zyprexa] 2.5 mg Tablet 2.5 mg PO QHS aspirin 81 mg tablet,delayed release (DR/EC) 81 mg PO DAILY@0800 levothyroxine 100 mcg Tablet 100 mcg PO DAILY omeprazole 20 mg Capsule,Delayed Release(Dr/Ec) 20 mg PO DAILY metformin 500 mg Tablet Extended Release 24 Hr 500 mg PO DAILY cholecalciferol (vitamin D3) 25 mcg (1,000 unit) Tablet 25 mcg PO DAILY brimonidine-timolol [Combigan] 0.2-0.5 % Drops 1 drp EACH EYE BID insulin glargine [Lantus Solostar U-100 Insulin] 100 unit/mL (3 mL) insulin pen 15 ea SUBCUT QHS hydrocodone-acetaminophen [hydrocodone-acetaminophen] 5-325 mg tablet 1 tab PO Q6H PRN PRN (Reason: Pain) 3 Days Qty: 10 0RF hydrocodone-acetaminophen 5-325 mg tablet 1 tab PO Q6H PRN (Reason: pain) 3 Days Qty: 12 0RF Primary Care Provider: Dann Muniz Referrals: Dann Muniz MD [Primary Care Provider] - Disposition Disposition: Home, Self Care
== END 2022-03-16 06:37 | disposition skilled nursing facility (03) ==
PROVIDERS: Emergency Provider Emergency Medicine; PCP Family Medicine; Visit Provider Emergency Medicine
DX: S00.03XD Contusion of scalp, subsequent encounter (principal); F03.90 Unspecified dementia, unspecified severity, without behavioral disturbance, psychotic disturbance, mood disturbance, and anxiety; E11.22 Type 2 diabetes mellitus with diabetic chronic kidney disease; Z79.4 Long term (current) use of insulin; N18.30 Chronic kidney disease, stage 3 unspecified; W18.30XA Fall on same level, unspecified, initial encounter; Y92.129 Unspecified place in nursing home as the place of occurrence of the external cause; F41.9 Anxiety disorder, unspecified; E78.5 Hyperlipidemia, unspecified; R29.6 Repeated falls; Z79.82 Long term (current) use of aspirin; Z79.84 Long term (current) use of oral hypoglycemic drugs; Z79.899 Other long term (current) drug therapy
CPT/HCPCS: 70450; 72125; 72170; 99284